=== PATIENT | female | born 1935 | race Caucasian/White ===

== ENCOUNTER 2016-11-22 22:18 | Emergency (ER) | payer MEDICARE, BC ==
--- NOTE | 2016-11-22 23:00 | EDM.PDOC ---
ED HPI GENERAL MEDICAL PROBLEM - General Chief Complaint: Fever Stated Complaint: TREMBLING Time Seen by Provider: 11/22/16 22:52 Source of Information: Reports: Patient, Family, RN notes reviewed History Limitations: Reports: No limitations - History of Present Illness INITIAL COMMENTS - FREE TEXT/NARRATIVE: 81-year-old female presents emergency department day sudden onset of fever and chills, she states been feeling well up until tonight fever was high at home around 104 she did take Tylenol prior to presenting to the emergency department she denies any other symptoms did receive a flu shot this year Abdominal Pain Score (Numeric/FACES): 3 - Related Data Allergies Allergy/AdvReac Type Severity Reaction Status Date / Time aspirin Allergy Severe Difficulty Verified 10/10/16 14:35 Breathing Yhfmckp-Htd-Orm Reductase Allergy Other Verified 10/10/16 14:35 Inhibitor Sulfa (Sulfonamide Allergy Rash Verified 10/10/16 14:35 Antibiotics) gabapentin AdvReac Agitation Verified 10/10/16 14:35 Home Meds: Home Meds Acetaminophen [Tylenol Arthritis] 1 tab PO QID 03/23/13 [History] Calcium Carb & Citrate/Vit D3 [Calcium + Vitamin D3 Caplet] 1 each PO BID [History] Carvedilol [Coreg] 12.5 mg PO BID 03/23/13 [History] Folic Acid 1 mg PO DAILY 03/23/13 [History] Theophylline [Theophylline Anhydrous] 300 mg PO BID 03/23/13 [History] Warfarin Sliding Scale [Coumadin Sliding Scale] 5 mg OR ASDIRECTED 03/23/13 [ History] Sucralfate [Carafate] 1 gm PO DAILY 01/23/16 [History] Biotin 1,000 mcg PO DAILY 05/26/16 [History] Vitamin B Complex with C [Super B Complex With C] 1 tab PO DAILY 05/26/16 [ History] Vitamin E 400 unit PO DAILY 05/26/16 [History] Nortriptyline 50 mg PO BEDTIME 09/16/16 [History] Albuterol Sulfate [Ventolin Hfa] 2 puff IH ASDIRECTED PRN 09/18/16 [History] Mesalamine [Delzicol] 400 mg PO TID 11/22/16 [History] Past Medical History HEENT History: Reports: Sinusitis Cardiovascular History: Reports: Blood clots/VTE/DVT, CAD, High cholesterol, Hypertension, Other (see below) Other Cardiovascular History: Statin Intolerance Respiratory History: Reports: Asthma, COPD Gastrointestinal History: Reports: Other (see below) Other Gastrointestinal History: Chrons. abscess on liver this winter was on IV antibiotics. 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: Musculoskeletal History: Reports: Back pain, chronic, Osteoarthritis Neurological History: Reports: Other (see below) Other Neuro History: Bilateral Leg Paresthesia Endocrine/Metabolic History: Reports: Osteopenia Hematologic History: Reports: Anemia, Blood transfusion(s), Iron deficiency Oncologic (Cancer) History: Reports: Breast - Infectious Disease History Infectious Disease History: Reports: Chicken pox - Past Surgical History GI Surgical History: Reports: Polypectomy Female Surgical History: Reports: Mastectomy Neurological Surgical History: Reports: Scoliosis, Spinal fusion Musculoskeletal Surgical History: Reports: Knee replacement Oncologic Surgical History: Reports: Mastectomy Social & Family History - Tobacco Use Smoking Status *Q: Former Smoker Years of Tobacco use: 10 Used Tobacco, but Quit: Yes Month Tobacco Last Used: 30 yrs ago Second Hand Smoke Exposure: No - Caffeine Use Caffeine Use: Reports: None - Alcohol Use Days Per Week of Alcohol Use: 0 - Recreational Drug Use Recreational Drug Use: No ED ROS GENERAL - Review of Systems Review Of Systems: See Below Constitutional: Reports: fever, chills HEENT: Reports: No symptoms Respiratory: Reports: No Symptoms Cardiovascular: Reports: No symptoms GI/Abdominal: Reports: No symptoms : Reports: no symptoms Musculoskeletal: Reports: no symptoms Skin: Reports: no symptoms Neurological: Reports: No Symptoms ED EXAM, GENERAL - Physical Exam Exam: See Below Free Text/Narrative:: General: Elderly female, not in any distress, alert and oriented x3 HEENT: head is atraumatic normocephalic, eyes pupils equal round reactive to light, sclera clear no conjunctivitis appreciated. Ears tympanic membranes clear and watson landmarks and light reflex are present bilaterally canals are clear. Nose no septal deviation, nares are clear, no blood present. Mouth mucosa is moist and pink no erythema or exudate noted in soft palate, tongue is midline uvula is midline, dentition is none. Neck: Supple no thyromegaly no tracheal deviation. Nodes: Cervical nodes subclavicular nodes nontender no palpable lymphadenopathy noted. Lungs: clear to auscultation bilaterally with symmetrical respirations, no adventitious noise appreciated. CV: Regular rate and rhythm S1 and S2 appreciated no murmurs rubs or gallops noted. Abdomen: Soft, nontender, no palpable masses or organomegaly appreciated, no distention no guarding bowel sounds are present, . Neuro: Cranial nerves II through XII grossly intact Skin: Hot and dry, intact Extremities: No lower extremity edema appreciated, Course - Vital Signs Last Recorded V/S: Last Vital Signs Temp 100.6 F 11/22/16 23:43 Pulse 110 H 11/22/16 23:43 Resp 20 11/22/16 23:43 BP 110/59 L 11/22/16 23:43 Pulse Ox 92 L 11/22/16 23:43 - Orders/Labs/Meds Orders: Active Orders 24 hr Category Date Time Status CULTURE BLOOD [BC] Urgent Lab 11/22/16 23:05 Received CULTURE BLOOD [BC] Urgent Lab 11/22/16 23:20 Received Blood Culture x2 Reflex Set [OM.PC] Urgent Oth 11/22/16 23:01 Ordered Labs: Laboratory Tests 11/22/16 11/22/16 11/22/16 Range/Units 22:56 22:56 23:05 WBC 10.5 (4.5-11.0) K/uL RBC 4.56 (3.30-5.50) M/uL Hgb 10.8 L (12.0-15.0) g/dL Hct 35.3 L (36.0-48.0) % MCV 77 L (80-98) fL MCH 24 L (27-31) pg MCHC 31 L (32-36) % Plt Count 290 (150-400) K/uL Neut % (Auto) 88 H (36-66) % Lymph % (Auto) 5 L (24-44) % Lea % (Auto) 4 (2-6) % Eos % (Auto) 3 (2-4) % Baso % (Auto) 0 (0-1) % PT (9.5-12.0) sec INR (0.80-1.20) Sodium (140-148) mmol/L Potassium (3.6-5.2) mmol/L Chloride (100-108) mmol/L Carbon Dioxide (21-32) mmol/L Anion Gap (5.0-14.0) mmol/L BUN (7-18) mg/dL Creatinine (0.6-1.0) mg/dL Est Cr Clr Drug Dosing mL/min Estimated GFR (MDRD) (>60) Glucose (74-106) mg/dL Lactic Acid 2.4 H (0.4-2.0) mmol/L Calcium (8.5-10.1) mg/dL Total Bilirubin (0.2-1.0) mg/dL AST (15-37) U/L ALT (12-78) U/L Alkaline Phosphatase (46-116) U/L Total Protein (6.4-8.2) g/dL Albumin (3.4-5.0) g/dL Globulin (2.3-3.5) g/dL Albumin/Globulin Ratio (1.2-2.2) Lipase (73-393) U/L Urine Color Yellow Urine Appearance Clear Urine pH 7.0 (4.5-8.0) Ur Specific [place] 1.010 (1.008-1.030) Urine Protein Negative (NEGATIVE) mg/dL Urine Glucose (UA) Normal (NEGATIVE) mg/dL Urine Ketones Negative (NEGATIVE) mg/dL Urine Occult Blood Negative (NEGATIVE) Urine Nitrite Negative (NEGATIVE) Urine Bilirubin Negative (NEGATIVE) Urine Urobilinogen Normal (NORMAL) mg/dL Ur Leukocyte Esterase Negative (NEGATIVE) Urine RBC 0-5 (0-5) Urine WBC 0-5 (0-5) Ur Epithelial Cells Rare Amorphous Sediment Not seen Urine Bacteria Few Urine Mucus Not seen 11/22/16 11/22/16 Range/Units 23:05 23:05 WBC (4.5-11.0) K/uL RBC (3.30-5.50) M/uL Hgb (12.0-15.0) g/dL Hct (36.0-48.0) % MCV (80-98) fL MCH (27-31) pg MCHC (32-36) % Plt Count (150-400) K/uL Neut % (Auto) (36-66) % Lymph % (Auto) (24-44) % Lea % (Auto) (2-6) % Eos % (Auto) (2-4) % Baso % (Auto) (0-1) % PT 19.2 H (9.5-12.0) sec INR 1.78 H (0.80-1.20) Sodium 139 L (140-148) mmol/L Potassium 3.4 L (3.6-5.2) mmol/L Chloride 102 (100-108) mmol/L Carbon Dioxide 24 (21-32) mmol/L Anion Gap 16.4 H (5.0-14.0) mmol/L BUN 14 (7-18) mg/dL Creatinine 0.9 (0.6-1.0) mg/dL Est Cr Clr Drug Dosing 39.43 mL/min Estimated GFR (MDRD) > 60 (>60) Glucose 108 H (74-106) mg/dL Lactic Acid (0.4-2.0) mmol/L Calcium 8.5 (8.5-10.1) mg/dL Total Bilirubin 0.2 (0.2-1.0) mg/dL AST 32 (15-37) U/L ALT 27 (12-78) U/L Alkaline Phosphatase 108 (46-116) U/L Total Protein 6.9 (6.4-8.2) g/dL Albumin 3.3 L (3.4-5.0) g/dL Globulin 3.6 H (2.3-3.5) g/dL Albumin/Globulin Ratio 0.9 L (1.2-2.2) Lipase 160 (73-393) U/L Urine Color Urine Appearance Urine pH (4.5-8.0) Ur Specific [place] (1.008-1.030) Urine Protein (NEGATIVE) mg/dL Urine Glucose (UA) (NEGATIVE) mg/dL Urine Ketones (NEGATIVE) mg/dL Urine Occult Blood (NEGATIVE) Urine Nitrite (NEGATIVE) Urine Bilirubin (NEGATIVE) Urine Urobilinogen (NORMAL) mg/dL Ur Leukocyte Esterase (NEGATIVE) Urine RBC (0-5) Urine WBC (0-5) Ur Epithelial Cells Amorphous Sediment Urine Bacteria Urine Mucus Departure - Departure Time of Disposition: 00:26 Disposition: Home, Self-Care 01 Condition: good Clinical Impression: Fever Qualifiers: Fever type: unspecified Qualified Code(s): R50.9 - Fever, unspecified Forms: ED Department Discharge Additional Instructions: Continue to use Tylenol and Motrin to help control your fevers please followup with your primary care next week if not better, call or return to the emergency department with worsening of symptoms - My Orders Last 24 Hours: My Active Orders 11/22/16 23:01 Blood Culture x2 Reflex Set [OM.PC] Urgent 11/22/16 23:05 CULTURE BLOOD [BC] Urgent 11/22/16 23:20 CULTURE BLOOD [BC] Urgent - Assessment/Plan Last 24 Hours: My Active Orders 11/22/16 23:01 Blood Culture x2 Reflex Set [OM.PC] Urgent 11/22/16 23:05 CULTURE BLOOD [BC] Urgent 11/22/16 23:20 CULTURE BLOOD [BC] Urgent Plan: Assessment Acuity = acute Site and laterality = fever complicated patient with known history of Crohn's and a history of blood clots on chronic anticoagulation Etiology = unclear etiology Manifestations = none Location of injury = home Lab values = hemoglobin low at 10.8 consistent microchromic anemia INR subtherapeutic at 1.70 sodium low at 139 consistent hyponatremia potassium low at 2.4 consistent hypokalemia lactic acid mildly elevated at 2.4 consistent lactic acidosis albumin low at 2.3 consistent with hypoalbuminemia urinalysis unremarkable Plan I did review lab work with her as well as her urine results her fever came down with the Tylenol she taken prior she feels significantly better I did review options with her including hospital admission further evaluation she declined at this time would like to try outpatient treatment symptomatic care will followup with her primary care next week or return to the emergency department for worsening symptoms Patient was in agreement with the plan all questions were answered, they were instructed to return to the emergency department or call for worsening symptoms. This note was dictated using [employer] voice recognition software please call with any questions.
[2016-11-22 23:47] VITALS: BP 110/59
== END 2016-11-23 01:06 | disposition home or self-care (01) ==
LOC: JP.ED 22:18
DX: R50.9 Fever, unspecified (principal); E78.00 Pure hypercholesterolemia, unspecified; I10 Essential (primary) hypertension; J45.909 Unspecified asthma, uncomplicated; I25.10 Atherosclerotic heart disease of native coronary artery without angina pectoris; J44.9 Chronic obstructive pulmonary disease, unspecified; Z87.891 Personal history of nicotine dependence; Z88.2 Allergy status to sulfonamides; Z88.8 Allergy status to other drugs, medicaments and biological substances; Z79.899 Other long term (current) drug therapy; Z86.718 Personal history of other venous thrombosis and embolism; Z79.01 Long term (current) use of anticoagulants
CPT/HCPCS: 36415; 80053; 81001; 83605; 83690; 85025; 85610; 87040; 87804; 99282; 99284

== ENCOUNTER 2018-07-23 06:02 | Inpatient (IN) | payer MEDICARE, BC ==
[~2018-07-23 06:02] MED LIST: Acetaminophen 500 MG Tab PO ONE; Albuterol/Ipratropium 3.0-0.5 MG/3 ML Neb Soln NEB ONE; Dextrose 5%-Lactated Ringers 1,000 ML IV SCH; methylPREDNISolone Sodium Succinate 125 MG/2 ML SDV IVPUSH ONE
[2018-07-23] MEDS ORDERED: Dextrose 5%-Lactated Ringers 1,000 ML IV SCH ×3 (06:30→07:00)
[2018-07-23] MEDS ORDERED: Acetaminophen 500 MG Tab PO ONE ×2 (06:30→07:00)
[2018-07-23] MEDS ORDERED: methylPREDNISolone Sodium Succinate 125 MG/2 ML SDV IVPUSH ONE ×2 (07:00→07:30)
[2018-07-23] MEDS ORDERED: Albuterol/Ipratropium 3.0-0.5 MG/3 ML Neb Soln NEB ONE ×2 (07:00→07:30)
[2018-07-23] MEDS ORDERED: ceFAZolin 2 GM in Premix Bag 1 BAG IV ONE (07:00)
[2018-07-23] MEDS ORDERED: Propofol 200 MG/20 ML SDV ONE (07:11)
[2018-07-23] MEDS ORDERED: Neostigmine Methylsulfate 1 MG/ML 5 ML Syringe ONE (07:11)
[2018-07-23] MEDS ORDERED: Rocuronium 50 MG/5 ML Vial ONE (07:11)
[2018-07-23] MEDS ORDERED: Ondansetron 4 MG/2 ML SDV ONE (07:11)
[2018-07-23] MEDS ORDERED: Succinylcholine 200 MG/10 ML MDV ONE (07:11)
[2018-07-23] MEDS ORDERED: Dexamethasone 4 MG/ML SDV ONE (07:11)
[2018-07-23] MEDS ORDERED: Glycopyrrolate 0.2 MG/ML 5 ML MDV ONE (07:11)
[2018-07-23] MEDS ORDERED: Meropenem 500 MG SDV ONE (07:23)
[2018-07-23] MEDS ORDERED: Naloxone 0.4 MG/ML SDV IV PRN (07:45)
[2018-07-23] MEDS ORDERED: Ropivacaine 38 ML, Dexamethasone 8 MG, EPINEPHrine 0.4 MG, Sodium Chloride 0.9% 39.6 ML NERVRT SCH ×4 (08:00)
[2018-07-23] MEDS ORDERED: fentaNYL 250 MCG/5 ML SDV ONE (08:37)
[2018-07-23] MEDS ORDERED: Labetalol 20 MG/4 ML Syringe ONE (08:46)
[2018-07-23] MEDS: HYDROmorphone/Normal Saline 15 MG/30 ML PCA IV PRN (08:54)
[2018-07-23] MEDS ORDERED: Lactated Ringers 1,000 ML ONE (09:37)
[2018-07-23] MEDS ORDERED: Albuterol/Ipratropium 3.0-0.5 MG/3 ML Neb Soln INH PRN (12:00)
[2018-07-23] MEDS ORDERED: Ondansetron 4 MG/2 ML SDV IVPUSH PRN (12:00)
[2018-07-23] MEDS: Acetaminophen 500 MG Tab PO SCH ×2 (13:57→21:39)
[2018-07-23] MEDS: Pantoprazole 40 MG Vial IVPUSH SCH (13:57)
[2018-07-23] MEDS: cefOXitin 2 GM in Sodium Chloride 0.9% 50 ML IV SCH ×2 (14:01→19:23)
[2018-07-23] MEDS: Albuterol/Ipratropium 3.0-0.5 MG/3 ML Neb Soln INH SCH ×2 (14:53→21:45)
[2018-07-23] MEDS: Dextrose 5%-Lactated Ringers 1,000 ML IV SCH ×2 (16:36→23:56)
[2018-07-23] MEDS: methylPREDNISolone Sodium Succinate 125 MG/2 ML SDV IVPUSH SCH (17:06)
[2018-07-23] MEDS: Carvedilol 12.5 MG Tab PO SCH (21:35)
[2018-07-23] MEDS: Theophylline 300 MG Tab.ER PO SCH (21:39)
[2018-07-23] MEDS: Nortriptyline 25 MG Cap PO SCH (21:39)
[2018-07-24] MEDS: cefOXitin 2 GM in Sodium Chloride 0.9% 50 ML IV SCH ×2 (02:41→07:45)
[2018-07-24] MEDS: methylPREDNISolone Sodium Succinate 125 MG/2 ML SDV IVPUSH SCH (05:34)
[2018-07-24] MEDS: Albuterol/Ipratropium 3.0-0.5 MG/3 ML Neb Soln INH SCH ×4 (07:10→20:51)
[2018-07-24] MEDS: Dextrose 5%-Lactated Ringers 1,000 ML IV SCH ×2 (07:47→17:02)
[2018-07-24] MEDS: Docusate Sodium 100 MG Cap PO SCH ×2 (09:54→20:48)
[2018-07-24] MEDS: Theophylline 300 MG Tab.ER PO SCH ×2 (09:54→20:52)
[2018-07-24] MEDS: Enoxaparin 60 MG/0.6 ML Syringe SUBCUT SCH ×2 (09:55→20:51)
[2018-07-24] MEDS: Bisacodyl 5 MG Tab PO SCH ×2 (09:55→20:51)
[2018-07-24] MEDS: Acetaminophen 500 MG Tab PO SCH ×3 (09:55→20:52)
[2018-07-24] MEDS: Carvedilol 12.5 MG Tab PO SCH ×2 (09:55→20:49)
[2018-07-24] MEDS: Hypromellose 0.4% Ophth Soln 15 ML Bottle EYEBOTH SCH (09:55)
[2018-07-24] MEDS ORDERED: Warfarin 2.5 MG, Warfarin 5 MG PO ONE ×2 (11:00)
[2018-07-24] MEDS: Linezolid 600 MG in Premix Bag 1 BAG IV SCH ×2 (11:20→22:13)
[2018-07-24] MEDS: Pantoprazole 40 MG Vial IVPUSH SCH (13:20)
[2018-07-24] MEDS: HYDROmorphone/Normal Saline 15 MG/30 ML PCA IV PRN (19:38)
[2018-07-24] MEDS: Nortriptyline 25 MG Cap PO SCH (20:52)
[2018-07-25] MEDS: Dextrose 5%-Lactated Ringers 1,000 ML IV SCH ×2 (03:27→17:45)
[2018-07-25] MEDS: Albuterol/Ipratropium 3.0-0.5 MG/3 ML Neb Soln INH SCH ×4 (08:07→20:28)
[2018-07-25] MEDS: Docusate Sodium 100 MG Cap PO SCH ×2 (08:52→20:25)
[2018-07-25] MEDS: Carvedilol 12.5 MG Tab PO SCH ×2 (08:52→20:25)
[2018-07-25] MEDS: Hypromellose 0.4% Ophth Soln 15 ML Bottle EYEBOTH SCH (08:53)
[2018-07-25] MEDS: Acetaminophen 500 MG Tab PO SCH ×3 (08:53→20:26)
[2018-07-25] MEDS: Bisacodyl 5 MG Tab PO SCH ×2 (08:53→20:25)
[2018-07-25] MEDS: Theophylline 300 MG Tab.ER PO SCH ×2 (08:53→20:26)
[2018-07-25] MEDS: Enoxaparin 60 MG/0.6 ML Syringe SUBCUT SCH ×2 (08:53→20:26)
[2018-07-25] MEDS ORDERED: Bisacodyl 10 MG Supp RECTAL ONE (10:30)
[2018-07-25] MEDS ORDERED: Potassium Phosphates 20 MMOLE in Sodium Chloride 0.9% 250 ML IV SCH (10:30)
[2018-07-25] MEDS: Linezolid 600 MG in Premix Bag 1 BAG IV SCH (12:57)
[2018-07-25] MEDS: Pantoprazole 40 MG Vial IVPUSH SCH (13:00)
[2018-07-25] MEDS ORDERED: Warfarin 2.5 MG Tab PO ONE (13:00)
[2018-07-25] MEDS ORDERED: Bisacodyl 10 MG Supp RECTAL PRN (14:00)
[2018-07-25] MEDS ORDERED: Furosemide 20 MG/2 ML VIAL IV ONE (14:00)
[2018-07-25] MEDS: Potassium Phosphates 20 MMOLE in Sodium Chloride 0.9% 250 ML IV SCH ×3 (14:38→21:24)
[2018-07-25] MEDS: Nortriptyline 25 MG Cap PO SCH (20:26)
[2018-07-26] MEDS: Linezolid 600 MG in Premix Bag 1 BAG IV SCH (00:20)
[2018-07-26] MEDS: Albuterol/Ipratropium 3.0-0.5 MG/3 ML Neb Soln INH SCH ×4 (07:20→22:03)
[2018-07-26] MEDS ORDERED: Potassium Chloride Riders 40 MEQ in Premix Bag 1 BAG IV ONE (07:40)
[2018-07-26] MEDS: Acetaminophen/HYDROcodone 325-5 MG Tab PO PRN ×5 (08:10→23:15)
[2018-07-26] MEDS: Magnesium Sulfate/Water 2 GM in Premix Bag 1 BAG IV SCH ×3 (08:12→20:04)
[2018-07-26] MEDS: Theophylline 300 MG Tab.ER PO SCH ×2 (08:13→22:03)
[2018-07-26] MEDS: Carvedilol 12.5 MG Tab PO SCH ×2 (08:13→22:14)
[2018-07-26] MEDS: Hypromellose 0.4% Ophth Soln 15 ML Bottle EYEBOTH SCH (08:13)
--- NOTE | 2018-07-26 08:40 | PN ---
DATE OF SERVICE: 07/26/2018 SUBJECTIVE: Karyn is postoperative day #3. She is using her COLLEGE PHYSICS INSTRUCTOR. Pain is controlled. Hemoglobin on 07/25/2018 was 8.6. She received 1 unit of packed red blood cells yesterday and her hemoglobin today is 9.7. Potassium is 3.5. BNP 446. Magnesium was 1.5. Oral intake 1770. Urine output not recorded at the time of dictation. FRANCISCO drain 1, 2 , and 3 put out 45, 50, and 20 respectively of a light pink serosanguineous drainage and she has had 2 bowel movements in the past 24 hours. REVIEW OF SYSTEMS: Remainder of review of systems negative for any pertinent positives and negatives. OBJECTIVE: GENERAL: Karyn Wing is a pleasant 82-year-old female. VITAL SIGNS: TPR is 98.7, 100, respirations not recorded, blood pressure is 114 /60. HEENT: Negative. NECK: Supple. HEART: Regular rate and rhythm. LUNGS: Clear. ABDOMEN: Dressings dry and intact. Abdominal binder is on. FRANCISCO drains are draining a pink serosanguineous drainage. EXTREMITIES: Without peripheral edema. ASSESSMENT: 1. Exploratory laparotomy with partial right hepatic lobectomy, cholecystectomy , and excision of peritoneal lesion over liver for recurrent inflamed right hepatic cyst, chronic cholecystitis, nodular peritoneal lesion over right lobe of liver. Date of surgery: 07/23/2018. Surgeon: Zafar Cox MD. 2. Postop hemoglobin 8.6, requiring 1 unit of packed red blood cells. 3. Anticoagulation therapy. PT 20.1, INR is 1.89. PLAN: 1. Discontinue Lovenox. 2. Magnesium 2 g IV q.6 h. x72 hours. 3. Discontinue Dulcolax oral tablets. 4. Discontinue Colace oral tablets. 5. Discontinue COLLEGE PHYSICS INSTRUCTOR and continuous pulse ox. 6. Carpenter 5/325 mg one every 3 hours p.r.n. pain. 7. Discontinue all three FRANCISCO drains. 8. Ampicillin 1.5 g q.6 h. IV. 9. Discontinue Zyvox. 10.Saline lock IV. 11.May shower. 12.Consult discharge planning for home health care. 13.Check CBC, CMP, phos, and BNP in a.m. 14.KCl 40 mEq IV. 15.Soft diet. 16.Good pulmonary toilet. 17.We will evaluate p.r.n. or in a.m. Osiris Pratehr PA-C /[id number] ADDENDUM: She is to have ampicillin 1.5 g q.6 h. IV. Gram stain was Enterococcus faecium and sensitive to ampicillin, and this was her abdominal abscess culture and sensitivity. Zyvox was discontinued. Osiris Prather PA-C /[id number] AYANA
[2018-07-26] MEDS: Potassium Chloride 20 MEQ, Lidocaine 1% 2 ML in Sodium Chloride 0.9% 100 ML IV SCH ×2 (11:08→13:00)
[2018-07-26] MEDS: Pantoprazole 40 MG Tab.CR PO SCH (12:53)
[2018-07-26] MEDS: Nortriptyline 25 MG Cap PO SCH (22:03)
[2018-07-27] MEDS: Magnesium Sulfate/Water 2 GM in Premix Bag 1 BAG IV SCH ×4 (02:02→21:18)
[2018-07-27] MEDS: Acetaminophen/HYDROcodone 325-5 MG Tab PO PRN ×3 (02:13→08:09)
[2018-07-27] MEDS: Pantoprazole 40 MG Tab.CR PO SCH (07:22)
[2018-07-27] MEDS: Albuterol/Ipratropium 3.0-0.5 MG/3 ML Neb Soln INH SCH ×4 (07:39→21:18)
[2018-07-27] MEDS ORDERED: Warfarin 5 MG Tab PO ONE (09:00)
[2018-07-27] MEDS: Carvedilol 12.5 MG Tab PO SCH ×2 (09:41→21:19)
[2018-07-27] MEDS: Hypromellose 0.4% Ophth Soln 15 ML Bottle EYEBOTH SCH (09:42)
[2018-07-27] MEDS: Theophylline 300 MG Tab.ER PO SCH ×2 (09:43→21:20)
--- NOTE | 2018-07-27 16:44 | PN ---
DATE OF SERVICE: 07/27/2018 SUBJECTIVE: Karyn's vital signs have been stable. She has been up ambulating. Pain has been somewhat controlled with the [place] one every three hours. Oral intake adequate at 1920 and urine output not recorded for the past 24 hours. REVIEW OF SYSTEMS: Remainder of review of systems negative for any pertinent positives and negatives. OBJECTIVE: GENERAL: Karyn Wnig is a pleasant 82-year-old female. VITAL SIGNS: TPR is 98, 87, 18, and blood pressure is 131/54. HEENT: Negative. NECK: Supple. HEART: Regular rate and rhythm. LUNGS: Clear. ABDOMEN: Raymond intact to right upper quadrant. Abdominal binder has not been on. EXTREMITIES: Without peripheral edema. LABORATORY DATA: PT 16.8 and INR 1.57. ASSESSMENT: 1. Exploratory laparotomy with partial right hepatic lobectomy, cholecystectomy, and excision of peritoneal lesion over liver for recurrent inflamed right hepatic cyst, chronic cholecystitis, nodular peritoneal lesion over right lobe of liver. Date of surgery, 07/23/2018. Surgeon, Zafar Cox MD. 2. Postoperative hemoglobin 8.6, requiring 1 unit of packed red blood cells. 3. Anticoagulation therapy, chronic. PLAN: 1. Coumadin 6 mg today. 2. [place] 5/325 mg take one to two every 4 hours p.r.n. pain. 3. Check PT and INR in a.m. 4. Discontinue O2. 5. Plan discharge in a.m. 6. To wear abdominal binder. The patient felt like it helped her use her incentive spirometer better and get in and out of bed. 7. We will evaluate p.r.n. or in a.m. Osiris Prather PA-C /[id number]
[2018-07-27] MEDS: Nortriptyline 25 MG Cap PO SCH (21:20)
[2018-07-28] MEDS: Magnesium Sulfate/Water 2 GM in Premix Bag 1 BAG IV SCH ×2 (02:38→08:18)
[2018-07-28] MEDS: Albuterol/Ipratropium 3.0-0.5 MG/3 ML Neb Soln INH SCH ×2 (07:20→11:05)
[2018-07-28] MEDS: Acetaminophen/HYDROcodone 325-5 MG Tab PO PRN ×2 (07:44→11:52)
[2018-07-28] MEDS: Pantoprazole 40 MG Tab.CR PO SCH (07:50)
[2018-07-28 08:10] VITALS: BP 130/82
[2018-07-28] MEDS: Theophylline 300 MG Tab.ER PO SCH (09:34)
[2018-07-28] MEDS: Hypromellose 0.4% Ophth Soln 15 ML Bottle EYEBOTH SCH (09:34)
[2018-07-28] MEDS: Carvedilol 12.5 MG Tab PO SCH (09:35)
--- NOTE | 2018-07-28 11:16 | DISCH ---
ADMISSION DIAGNOSES: 1. Recurrent inflammation of right hepatic cyst. 2. Chronic cholecystitis. 3. History of deep vein thrombosis. 4. Long-term use of anticoagulants. 5. History of left breast cancer. 6. Essential hypertension. 7. Scoliosis of lumbar spine. 8. Coronary artery disease. 9. Dyslipidemia. 10.Osteopenia. 11.Crohn's colitis. 12.Sensorineural hearing loss. 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 DISCHARGE DIAGNOSES: Exploratory laparotomy with: 1. Partial right hepatic lobectomy. 2. Cholecystectomy. 3. Excision of peritoneal lesion over liver for recurrent inflamed right hepatic cyst, chronic cholecystitis, and nodular peritoneal lesion over right lobe of liver. Date of surgery: 07/23/2018. Surgeon: Zafar Cox MD. HISTORY: Karyn Wing is an 82-year-old female with the above chief complaint. After preoperative evaluation, discussion of possible risks and possible complications, she wished to proceed with surgical procedure. HOSPITAL COURSE: Karyn had her surgery on 07/23/2018. She had no operative complications. On postoperative day #1, she was started on a full liquid diet. She was given Lovenox 60 mg subcu every 12 hours and Coumadin 7.5. Cefoxitin was discontinued and she was started on Zyvox. On postoperative day #2, she was given 1 unit of packed red blood cells for hemoglobin of 8.6. Coumadin was monitored. Santana catheter was discontinued after she was given Lasix. After the transfusion was completed, started on bowel stimulation. On postoperative day #3, the Lovenox was discontinued, magnesium was replaced. She started to have bowel movements, so her bowel stimulation was discontinued. 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 All three FRANCISCO drains were discontinued. The culture and sensitivity of the abdominal abscess was Enterococcus faecium, so she was changed to ampicillin 1.5 g q.6 h. IV. On postoperative day #4, she was given 6 mg of Coumadin. Cache was increased to take 1 to 2 every 4 hours p.r.n. pain. Oxygen was discontinued and she was up ambulating. Home health care was arranged for discharge planning. On 07/28/2017, she was ready to be discharged to home. Hemoglobin was 9.7, hematocrit 29.6. PT 16.5, INR is 1.54. Pain was managed. Activity was good. Up independently, but remains to feel weak. Vital signs stable and pain was well managed. REVIEW OF SYSTEMS: Remainder of review of systems negative for any pertinent positives or negatives. PHYSICAL EXAMINATION: GENERAL: Karyn Wing is an 82-year-old female, alert, orientated, color pale. VITAL SIGNS: Height is 5 feet 1.42 inches, weight is 172 pounds. TPR is 99.9, 86, 16, blood pressure 151/63. HEENT: Negative. NECK: Supple. HEART: Regular rate and rhythm. LUNGS: Clear. ABDOMEN: Raymond intact. Abdominal binder is on. EXTREMITIES: Without peripheral edema. DISPOSITION: Discharged to home. CONDITION: Stable and improving. FOLLOWUP: Followup appointment with Zafar Cox MD., on 08/04/2018 at 12:30 p.m. Check PT and INR before appointment. HOME MEDICATIONS: 1. Cache 5/325 mg 1 to 2 every 4 hours p.r.n. pain. 2. The patient was given 7.5 mg of Coumadin today. Before discharge tomorrow, she will resume her normal Coumadin regime of 5 mg every Thursday and Thursday, and 2.5 mg Thursday, Thursday, Thursday, , and Thursday. 3. She was given Cache 5/325 mg 1 to 2 every 4 hours p.r.n. pain, #40. 4. Tylenol 1000 mg 3 times a day as needed, but to watch that she does not take over 4000 mg of Tylenol daily. 5. Ventolin 2 puffs inhalation twice daily. 6. Biotin 1000 mcg oral daily. 7. Calcium with vitamin D3 one tablet twice daily. 8. Refresh Optive eye drops one drop in each eye daily. 9. Carvedilol/Coreg 12.5 mg twice daily. 10.Questran powder 4 g oral daily. 11.Flonase 2 sprays per each nasal twice daily p.r.n. 12.Folic acid 1 mg daily. 13.Mesalamine Delzicol 1200 mg oral 3 times a day. 14.Nortriptyline 50 mg oral at bedtime. 15.Theophylline 300 mg oral b.i.d. 16.Vitamin B complex one tablet oral daily. 17.Discontinue taking Lovenox and prednisone. DIET: Usual diet as tolerated. Drink 8 to 10 glasses of water a day. ACTIVITY: No lifting greater than 10 pounds for 6 weeks. Other activity, walk at least 6 times daily inside your home. Driving: Do not drive while on pain medication. DISCHARGE INSTRUCTIONS: Shower/bathing: May shower. Notify provider if any fever, increased pain, swelling, redness, nausea, or vomiting. Wound incision care, keep site clean and dry. Wear abdominal binder for 6 weeks and then as tolerated. SPECIAL INSTRUCTIONS: Use incentive spirometer 10 times every hour while awake. Make sure her discharge is a discharge with home health care.
[2018-07-28] MEDS ORDERED: Warfarin 2.5 MG Tab PO SCH ×2 (12:00→13:00)
--- NOTE | 2018-07-30 09:33 | PN ---
DATE OF SERVICE: 07/24/2018 The patient has been afebrile with stable vital signs. Heart rate is regular at around 100 and blood pressures are in the 120s-130s/70s. O2 saturations on 2 L nasal cannula are 93% to 94%. Overnight, no significant problems were noted. Urine output is adequate but not overly high, and we will leave the IV rate running a little fast until later this afternoon. Otherwise, her hemoglobin is 9.8 and, given the intraoperative blood loss, it is about where I would expect it to be. FRANCISCO drainage is bloody but relatively minimal; I do not think we are seeing any ongoing bleeding. With her history of DVT and such, we will start some Lovenox today, as well as starting to re-coumadinize her and recheck some labs in the morning. We will get daily PTs while re-coumadinizing her as well. We will leave the Santana catheter in place for today, monitor urine output, and we will likely get that out tomorrow. Zafar Cox MD /[id number]
--- NOTE | 2018-07-30 13:26 | PN ---
DATE OF SERVICE: 07/25/2018 The patient has been afebrile with stable vital signs, complaining of some abdominal discomfort this morning. I think she may be developing a little bit of ileus. We will hold off on advancing her diet at all and gave her Dulcolax suppository this morning. She is on her Crohn's medication consisting of mesalamine. Her hemoglobin is now 8.6, which is likely due to fluid shifting, and the drainage has all become serous, and we will give her one unit of packed RBC's this morning. Given her underlying cardiovascular disease, we will give her Lasix 10 mg IV push after the transfusion is completed. Her prothrombin time is up to 15 today. We will give her Coumadin 2.5 mg. Potassium and phosphate are both low, and these will be supplemented. She is complaining of a headache this morning. We will give her some Toradol. Otherwise, we will work on maximizing her activity and work on pulmonary toilet. Zafar Cox MD /[id number]
--- NOTE | 2018-08-02 13:06 | OR ---
DATE OF PROCEDURE: 07/23/2018 PREOPERATIVE DIAGNOSIS: Recurrent symptomatic cyst, right lobe of liver. POSTOPERATIVE DIAGNOSES: 1. Recurrent symptomatic probably infected cyst, right lobe of liver. 2. Gallbladder and stomach contused after retraction during liver retraction. 3. Superficial peritoneal lesion over quadrate lobe of liver. OPERATIVE PROCEDURES: Exploratory laparotomy with: A. Partial right hepatic lobectomy (excision of hepatic segment VII) (38926). B. Cholecystectomy (44857). C. Excision of peritoneal lesion over quadrate lobe of liver (26915). ANESTHESIA: General. ASSISTANTS: 1. Osiris Prather PA-C. 2. HANNA Jackson3. INDICATIONS FOR PROCEDURE: This is an 82-year-old female status post previous drainage of a hepatic cyst. This appeared to be somewhat of a complicated event and the patient now presents with recurrence of the cyst which is fairly symptomatic from abdominal discomfort standpoint. After discussion of treatment options, I would like to proceed with excision of this cyst that is located in the right lobe in the superolateral aspect, i.e., that of segment VII and we need to proceed with resection of that with cultures to be obtained. There was no radiologic or clinical suggestion of this being malignant as the previous cyst drainage no cytology was obtained which showed no evidence of malignancy and the cyst wall itself does not identify any serious malignancy per se. Potential risks including bleeding, infection, recurrence of the problem over time as well as possibility of cardiopulmonary, septic, or hemorrhagic complications leading to were discussed. The possibility that there may be some malignancy associated with this was also gone over and the patient wishes to proceed. DESCRIPTION OF PROCEDURE: The patient was taken to the operating room and placed in a supine position. After general endotracheal anesthesia was induced, a Santana catheter was inserted, and the abdomen prepped and draped. The lower chest was then also prepped in the event that a thoracoabdominal incision might be required. The right subcostal incision was then made and carried down through the full thickness of the abdominal wall, and the peritoneal cavity entered. There were some minor adhesions from the previous midline incision which were taken down. The patient was noted to have a small roughly 3 mm white nodular lesion over the surface of segment IV of the liver, i.e., the quadrate lobe. This was excised and sent for separate histologic evaluation, although it was not clinically at all suspicious. Otherwise, the mass in the lateral superior aspect of the right lobe of the liver was easily palpable. At this point, the left triangular ligament was divided and then liver then dissected off the bare area more or less up to the level of the inferior vena cava. This allowed anterior and medial mobilization of right lobe of liver. Mesh was then placed behind this and then using primarily melo, a resection around the mass was accomplished. Additionally, we aspirated this and only a small amount of white thick material came. Visual biopsy on that was negative for bacteria. Eventually, the mass was excised in an intact manner with a small rim of normal-appearing liver around it. The cyst capsule itself was white leathery tissue. Upon completion of the resection, the defect left more or less corresponding to the hepatic segment VII having been resected. Of the field the cyst was opened. White pasty fluid was present. Cultures of these were obtained and initial Gram stain did show some gram-positive cocci indicating at this point a chronically infected cyst, likely accounting for the patient's symptoms in that area. Hemostasis was then confirmed and fibrin sealant placed across the raw surfaces of the liver and some omentum tacked up into that area as well. The patient's gallbladder was noted to be somewhat contused due to retraction of the right lobe of liver. The cholecystectomy was therefore performed, and the cystohepatic triangle was dissected out and the cystic artery and cystic duct were identified, both divided with SIMONE melo and then the gallbladder dissected off the gallbladder bed using electrocautery and delivered from the field. The gallbladder was opened and did have some degree of cholesterolosis present. Two Demian-Ahmadi drains were then placed in the area of the posterior right subcostal incision and positioned adjacent to the liver resection. At that point, no further problems were noted. The closure of the abdomen was at the facial level with_ standard closure for subcostal incision, I used 2 fascial layers and the subcutaneous tissue was then approximated with some 3-0 Vicryl stitch and the skin with melo. Drains were fixed with some 4-0 Vicryl stitch and dressing applied. The patient was taken to the recovery room in satisfactory condition. There were no other complications. Physician child center assistant, Osiris Prather PA-C played an essential role in assisting in this case, helping to position the patient, retract structures as indicated, as well as suturing and stapling when indicated. Her presence improved patient safety and decreased operative time. Zafar Cox MD /[id number]
== END 2018-07-28 13:00 | disposition home health service (06) | DRG 406 ==
LOC: JP.SDSSCHI 06:02 → JP.SDS 06:02 → EDSTATUS 09:00 → JP.2SS 10:40 → JP.MS 07-24 14:07
PROVIDERS: ADMIT Surgery; ATTEND Surgery
PROC: 0FB10ZZ Excision of Right Lobe Liver, Open Approach (ICD-10-PCS; principal; 2018-07-23)
PROC: 0FT40ZZ Resection of Gallbladder, Open Approach (ICD-10-PCS; 2018-07-23)
PROC: 0DBW0ZZ Excision of Peritoneum, Open Approach (ICD-10-PCS; 2018-07-23)
PROC: 30233N1 Transfusion of Nonautologous Red Blood Cells into Peripheral Vein, Percutaneous Approach (ICD-10-PCS; 2018-07-25)
DX: K76.89 Other specified diseases of liver (principal); I42.8 Other cardiomyopathies; K50.90 Crohn's disease, unspecified, without complications; K81.1 Chronic cholecystitis; K66.9 Disorder of peritoneum, unspecified; D64.9 Anemia, unspecified; B95.2 Enterococcus as the cause of diseases classified elsewhere; I10 Essential (primary) hypertension; I34.0 Nonrheumatic mitral (valve) insufficiency; J44.9 Chronic obstructive pulmonary disease, unspecified; I27.20 Pulmonary hypertension, unspecified; M35.3 Polymyalgia rheumatica; M41.9 Scoliosis, unspecified; K21.9 Gastro-esophageal reflux disease without esophagitis; Z86.718 Personal history of other venous thrombosis and embolism; E78.5 Hyperlipidemia, unspecified; Z85.3 Personal history of malignant neoplasm of breast; I25.10 Atherosclerotic heart disease of native coronary artery without angina pectoris; H90.5 Unspecified sensorineural hearing loss; Z98.1 Arthrodesis status; Z87.891 Personal history of nicotine dependence; Z79.01 Long term (current) use of anticoagulants; R47.02 Dysphasia; Z90.49 Acquired absence of other specified parts of digestive tract; Z96.651 Presence of right artificial knee joint; M85.80 Other specified disorders of bone density and structure, unspecified site
CPT/HCPCS: 36415; 36430; 80053; 83735; 83880; 84100; 85025; 85027; 85610; 86850; 86900; 86901; 86920; 86922; 87070; 87075; 87077; 87186; 87205; 94640; 94762; A9270-GY; C9113; J0171; J0290; J0330; J0690; J0694; J1100; J1170; J1650; J1940; J2020; J2185; J2405; J2704; J2710; J2795; J2930; J3010; J3475; J3480; J3490; J7030; J7042; J7050; J7120; J7620-GY; P9016

== ENCOUNTER 2018-08-15 13:22 | Emergency (ER) | payer MEDICARE, BC ==
[2018-08-15 15:33] VITALS: BP 146/78
[2018-08-15] MEDS ORDERED: Atropine/Diphenoxylate 0.025-2.5 MG Tab PO ONE (16:47)
--- NOTE | 2018-08-15 17:11 | EDM.PDOC ---
<Autumn Frances - Last Filed: 08/15/18 18:55> ED HPI GENERAL MEDICAL PROBLEM - General Chief Complaint: Gastrointestinal Problem Stated Complaint: DIARRHEA Time Seen by Provider: 08/15/18 16:40 Source of Information: Reports: Patient History Limitations: Reports: No Limitations - History of Present Illness INITIAL COMMENTS - FREE TEXT/NARRATIVE: Pt c/o of diarrhea, multiple episodes and getting to the point of not being able to make it to the bathroom. Pt brought stool sample in for testing on Thursday and culture is negative for Shiga toxin and c-difficile. Culture has normal enteric lane X 2 days. Recent surgery for abscess on liver which was removed along with her gallbladder. Pt received antibiotics at that time. Previous abdominal surgeries leave the patient with 1/3 of her colon per the patient. Pt has sores in mouth from thrush that she is using swish and swallow for. Previous to the abdominal surgery the patient felt she was well and at this time feels if can get rid of diarrhea can get back to herself. Onset: Gradual Onset Date: 08/05/18 Onset Time: 10:00 Duration: Week(s):, Getting Worse Location: Reports: Abdomen Quality: Reports: Other (contstant feeling like she has to go to bathroom) Severity: Moderate Improves with: Reports: None Worsens with: Reports: None Context: Reports: Other (s/p abx and surgery) Associated Symptoms: Reports: Other (thrush) - Related Data Allergies Allergy/AdvReac Type Severity Reaction Status Date / Time aspirin Allergy Severe Difficulty Verified 08/15/18 13:49 Breathing pregabalin [From Lyrica] Allergy Other Verified 08/15/18 13:49 Qtjnmnt-Igb-Uas Reductase Allergy Other Verified 08/15/18 13:49 Inhibitor Sulfa (Sulfonamide Allergy Rash Verified 08/15/18 13:49 Antibiotics) gabapentin AdvReac Agitation Verified 08/15/18 13:49 Home Meds: Home Meds Calcium Carb & Citrate/Vit D3 [Calcium + Vitamin D3 Caplet] 1 each PO BID [History] Carvedilol [Coreg] 12.5 mg PO BID 03/23/13 [History] Folic Acid 1 mg PO DAILY 03/23/13 [History] Theophylline [Theophylline Anhydrous] 300 mg PO BID 03/23/13 [History] Warfarin Sliding Scale [Coumadin Sliding Scale] 5 mg PO SUSA 03/23/13 [History] Biotin 1,000 mcg PO DAILY 05/26/16 [History] Vitamin B Complex with C [Super B Complex With C] 1 tab PO DAILY 05/26/16 [ History] Nortriptyline 50 mg PO BEDTIME 09/16/16 [History] Albuterol Sulfate [Ventolin Hfa] 2 puff IH BID PRN 09/18/16 [History] Mesalamine [Delzicol] 1,200 mg PO TID 11/22/16 [History] Acetaminophen [Acetaminophen Extra Strength] 1,000 mg PO TID 07/22/18 [History] Carboxymethylcellulos/Glycerin [Refresh Optive] 1 drop EYEBOTH DAILY 07/22/18 [ History] Cholestyramine/Aspartame [Questran Light Powder] 4 gm PO DAILY 07/22/18 [History ] Fluticasone Propionate [Flonase] 2 spray NS BID PRN 07/22/18 [History] Warfarin [Coumadin] 2.5 mg PO MOTUWETHFR 07/23/18 [History] Acetaminophen/HYDROcodone [[place] 325-5 MG] 1 - 2 tab PO Q4H PRN #40 tablet 07/28 [Rx] Past Medical History HEENT History: Reports: Allergic Rhinitis, Cataract, Sinusitis Cardiovascular History: Reports: Arrhythmia, Blood Clots/VTE/DVT, CAD, High Cholesterol, Hypertension, Other (See Below) Other Cardiovascular History: Statin Intolerance Respiratory History: Reports: Asthma, COPD Gastrointestinal History: Reports: Chronic Diarrhea, Colon Polyp, GERD, Other ( See Below) Other Gastrointestinal History: chrons, Genitourinary History: Reports: UTI, Recurrent 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: Reports: Dysfunctional Uterine Bleeding, Musculoskeletal History: Reports: Back Pain, Chronic, Fracture, Osteoarthritis Neurological History: Reports: None, TIA Other Neuro History: Bilateral Leg Paresthesia Endocrine/Metabolic History: Reports: Obesity/BMI 30+, Osteopenia Hematologic History: Reports: Anemia, Anticoagulation Therapy, Blood Transfusion (s), Iron Deficiency Oncologic (Cancer) History: Reports: Breast - Infectious Disease History Infectious Disease History: Reports: Chicken Pox, Measles, Mumps - Past Surgical History HEENT Surgical History: Reports: Cataract Surgery Cardiovascular Surgical History: Reports: None Respiratory Surgical History: Reports: None GI Surgical History: Reports: Appendectomy, Colon, Colonoscopy Female Surgical History: Reports: Breast Biopsy, Hysterectomy, Mastectomy Endocrine Surgical History: Reports: None Neurological Surgical History: Reports: Scoliosis, Spinal Fusion Musculoskeletal Surgical History: Reports: Carpal Tunnel, Knee Replacement Oncologic Surgical History: Reports: Mastectomy Social & Family History - Tobacco Use Smoking Status *Q: Never Smoker - Caffeine Use Caffeine Use: Reports: None ED ROS GENERAL - Review of Systems Review Of Systems: See Below Constitutional: Reports: No Symptoms, Weakness HEENT: Reports: No Symptoms Respiratory: Reports: No Symptoms Cardiovascular: Reports: No Symptoms Endocrine: Reports: No Symptoms GI/Abdominal: Reports: Abdominal Pain, Diarrhea : Reports: No Symptoms Musculoskeletal: Reports: No Symptoms Skin: Reports: No Symptoms Neurological: Reports: No Symptoms Psychiatric: Reports: No Symptoms Immunologic: Reports: No Symptoms ED EXAM, GENERAL - Physical Exam Exam: See Below Free Text/Narrative:: Pt is alert and oriented pleasant lady that is frustrated with current abdominal discomfort with diarrhea. Exam Limited By: No Limitations General Appearance: Alert, WD/WN, Mild Distress, Obese Respiratory/Chest: No Respiratory Distress, Lungs Clear, Normal Breath Sounds, No Accessory Muscle Use, Chest Non-Tender Cardiovascular: Normal Peripheral Pulses, Regular Rate, Rhythm GI/Abdominal: Normal Bowel Sounds, Soft, Non-Tender Rectal (Female) Exam: Normal Exam, Normal Rectal Tone, Hemorrhoids, Other ( stool sample collected to check for occult blood) Extremities: Normal Inspection, Normal Range of Motion Neurological: Alert, Oriented, Normal Cognition Skin Exam: Warm, Dry, Wound/Incision, Other (healing abd incision) Course - Vital Signs Last Recorded V/S: Last Vital Signs Temp 37.1 C 08/15/18 13:58 Pulse 96 08/15/18 15:28 Resp 12 08/15/18 15:28 BP 146/78 H 08/15/18 15:28 Pulse Ox 88 L 08/15/18 15:28 - Orders/Labs/Meds Labs: Laboratory Tests 08/15/18 08/15/18 Range/Units 16:46 16:46 WBC 10.0 (4.5-11.0) K/uL RBC 4.08 (3.30-5.50) M/uL Hgb 11.3 L (12.0-15.0) g/dL Hct 35.0 L (36.0-48.0) % MCV 86 (80-98) fL MCH 28 (27-31) pg MCHC 32 (32-36) % Plt Count 525 H (150-400) K/uL Neut % (Auto) 65 (36-66) % Lymph % (Auto) 20 L (24-44) % Rowan % (Auto) 11 H (2-6) % Eos % (Auto) 5 H (2-4) % Baso % (Auto) 1 (0-1) % Sodium 135 L (140-148) mmol/L Potassium 3.5 L (3.6-5.2) mmol/L Chloride 98 L (100-108) mmol/L Carbon Dioxide 26 (21-32) mmol/L Anion Gap 14.5 H (5.0-14.0) mmol/L BUN 8 D (7-18) mg/dL Creatinine 0.8 (0.6-1.0) mg/dL Est Cr Clr Drug Dosing 39.93 mL/min Estimated GFR (MDRD) > 60 (>60) Glucose 91 (74-106) mg/dL Calcium 9.4 (8.5-10.1) mg/dL Total Bilirubin 0.4 (0.2-1.0) mg/dL AST 26 (15-37) U/L ALT 26 (12-78) U/L Alkaline Phosphatase 89 (46-116) U/L Total Protein 6.6 (6.4-8.2) g/dL Albumin 2.8 L (3.4-5.0) g/dL Globulin 3.8 H (2.3-3.5) g/dL Albumin/Globulin Ratio 0.7 L (1.2-2.2) Meds: Medications Discontinued Medications Generic Name Dose Route Start Last Admin Trade Name Gregg PRN Reason Stop Dose Admin Acetaminophen 500 mg 08/15/18 17:16 08/15/18 17:26 Tylenol Extra Strength PO 08/15/18 17:17 500 mg ONETIME ONE Administration Hydrocodone Bitart/Acetaminophen 1 tab 08/15/18 17:15 08/15/18 17:26 [place] 325-5 Mg PO 08/15/18 17:16 1 tab ONETIME ONE Administration Diphenoxylate HCl/Atropine 2 tab 08/15/18 16:47 08/15/18 17:11 Lomotil 0.025-2.5 Mg PO 08/15/18 16:48 2 tab ONETIME ONE Administration Pt using acetaminophen and hydrocodone for post surgical pain. After test result negative for shiga and c-difficile was located, pt given lomotil for diarrhea. - Re-Assessments/Exams Free Text/Narrative Re-Assessment/Exam: 08/15/18 18:38 After patient has received medication for diarrhea, eaten a bland diet meal with activia yougurt, patient feels much improved and is ready to go home. Pt has been informed of all results and will followup with primary care provider or return to ER if symptoms return. Departure - Departure Disposition: Home, Self-Care 01 Condition: Good Clinical Impression: Diarrhea, Abdominal pain Diarrhea Qualifiers: Diarrhea type: unspecified type Qualified Code(s): R19.7 - Diarrhea, unspecified - Discharge Information *PRESCRIPTION DRUG MONITORING PROGRAM REVIEWED*: No *COPY OF PRESCRIPTION DRUG MONITORING REPORT IN PATIENT ALYSHA: No Instructions: Abdominal Pain, Adult, Food Choices to Help Relieve Diarrhea, Adult Referrals: David Avitia MD [Primary Care Provider] - Forms: ED Department Discharge Additional Instructions: Your prescription for lomotil should be used after diarrhea stools. After this bout of diarrhea has cleared you need to check with provider before using anti- diarrheal medications. Drink plenty of liquids while using the lomotil. <Robinson Mccray - Last Filed: 08/28/18 18:13> ED HPI GENERAL MEDICAL PROBLEM - General Source of Information: Reports: Patient History Limitations: Reports: No Limitations - History of Present Illness INITIAL COMMENTS - FREE TEXT/NARRATIVE: This patient was seen in conjunction with Autumn Frances. The history above is consistent with the history I also obtained from this patient ED ROS GENERAL - Review of Systems Review Of Systems: See Below Constitutional: Reports: No Symptoms HEENT: Reports: No Symptoms Respiratory: Reports: No Symptoms Cardiovascular: Reports: No Symptoms Endocrine: Reports: No Symptoms GI/Abdominal: Reports: Abdominal Pain, Diarrhea : Reports: No Symptoms Musculoskeletal: Reports: No Symptoms Skin: Reports: No Symptoms Neurological: Reports: No Symptoms Psychiatric: Reports: No Symptoms Immunologic: Reports: No Symptoms ED EXAM, GENERAL - Physical Exam Exam: See Below Exam Limited By: No Limitations General Appearance: Alert, Mild Distress Eye Exam: Bilateral Eye: Normal Inspection Respiratory/Chest: Lungs Clear Cardiovascular: Regular Rate, Rhythm GI/Abdominal: Normal Bowel Sounds, Soft, Non-Tender Extremities: Normal Inspection Neurological: Alert, Oriented, Normal Cognition Skin Exam: Warm, Dry Course - Re-Assessments/Exams Free Text/Narrative Re-Assessment/Exam: 08/28/18 18:11 I agree with the course of treatment of this patient. I discussed this patient with Ms. Frances prior to discharge of this patient Departure - Departure Time of Disposition: 18:13 Condition: Fair
[2018-08-15] MEDS ORDERED: Acetaminophen/HYDROcodone 325-5 MG Tab PO ONE (17:15)
[2018-08-15] MEDS ORDERED: Acetaminophen 500 MG Tab PO ONE (17:16)
== END 2018-08-15 19:06 | disposition home or self-care (01) ==
LOC: JP.ED 13:22
DX: R19.7 Diarrhea, unspecified (principal); I10 Essential (primary) hypertension; E78.00 Pure hypercholesterolemia, unspecified; J44.9 Chronic obstructive pulmonary disease, unspecified; Z79.01 Long term (current) use of anticoagulants; Z79.899 Other long term (current) drug therapy; Z88.2 Allergy status to sulfonamides; Z88.6 Allergy status to analgesic agent; Z88.8 Allergy status to other drugs, medicaments and biological substances
CPT/HCPCS: 36415; 80053; 82272; 85025; 99284; A9270

== ENCOUNTER 2019-08-01 19:36 | Inpatient (IN) | payer MEDICARE, BC ==
[2019-08-01] MEDS ORDERED: Albuterol/Ipratropium 3.0-0.5 MG/3 ML Neb Soln ONE (19:46)
[2019-08-01] MEDS ORDERED: Albuterol/Ipratropium 3.0-0.5 MG/3 ML Neb Soln NEB ONE (19:47)
[2019-08-01] MEDS ORDERED: methylPREDNISolone Sodium Succinate 125 MG/2 ML SDV IVPUSH ONE (19:52)
[2019-08-01] MEDS ORDERED: Propofol 200 MG/20 ML SDV ONE (19:58)
[2019-08-01] MEDS ORDERED: Succinylcholine 200 MG/10 ML MDV ONE ×2 (19:58→20:00)
--- NOTE | 2019-08-01 19:58 | EDM.PDOC ---
ED HPI GENERAL MEDICAL PROBLEM - General Chief Complaint: Respiratory Problem Stated Complaint: MEDICAL Time Seen by Provider: 08/01/19 19:55 Source of Information: Reports: Patient History Limitations: Reports: Altered Mental Status, Respiratory Distress - History of Present Illness INITIAL COMMENTS - FREE TEXT/NARRATIVE: 84 years old female patient brought in by ambulance with a chief complaint of shortness breath. History collected from EMS and her . She has been sick for the last 2 days. No fever. Worsening shortness breath and wheezing. Coughing. No report of any chest pain. No nausea no vomiting. No abdominal pain diarrhea or constipation. No urinary symptom. No head injury or trauma. - Related Data Allergies Allergy/AdvReac Type Severity Reaction Status Date / Time aspirin Allergy Severe Difficulty Verified 08/01/19 19:55 Breathing pregabalin [From Lyrica] Allergy Other Verified 08/01/19 19:55 [id number] Reductase Allergy Other Verified 08/01/19 19:55 Inhibitor Sulfa (Sulfonamide Allergy Rash Verified 08/01/19 19:55 Antibiotics) gabapentin AdvReac Agitation Verified 08/01/19 19:55 Home Meds: Home Meds Calcium Carb & Citrate/Vit D3 [Calcium + Vitamin D3 Caplet] 1 each PO BID [History] Folic Acid 1 mg PO DAILY 03/23/13 [History] Theophylline [Theophylline Anhydrous] 300 mg PO BID 03/23/13 [History] Warfarin Sliding Scale [Coumadin Sliding Scale] 5 mg PO SUSA 03/23/13 [History] carvediloL [Coreg] 12.5 mg PO BID 03/23/13 [History] Biotin 1,000 mcg PO DAILY 05/26/16 [History] Vitamin B Complex with C [Super B Complex With C] 1 tab PO DAILY 05/26/16 [ History] Nortriptyline 50 mg PO BEDTIME 09/16/16 [History] Albuterol Sulfate [Ventolin Hfa] 2 puff IH BID PRN 09/18/16 [History] Mesalamine [Delzicol] 1,200 mg PO TID 11/22/16 [History] Acetaminophen [Acetaminophen Extra Strength] 1,000 mg PO TID 07/22/18 [History] Carboxymethylcellulos/Glycerin [Refresh Optive] 1 drop EYEBOTH DAILY 07/22/18 [ History] Cholestyramine/Aspartame [Questran Light Powder] 4 gm PO DAILY 07/22/18 [History ] Fluticasone Propionate [Flonase] 2 spray NS BID PRN 07/22/18 [History] Warfarin [Coumadin] 2.5 mg PO MOTUWETHFR 07/23/18 [History] Acetaminophen/HYDROcodone [[place] 325-5 MG] 1 - 2 tab PO Q4H PRN #40 tablet 07/28 [Rx] Past Medical History HEENT History: Reports: Allergic Rhinitis, Cataract, Sinusitis Cardiovascular History: Reports: Arrhythmia, Blood Clots/VTE/DVT, CAD, High Cholesterol, Hypertension, Other (See Below) Other Cardiovascular History: Statin Intolerance Respiratory History: Reports: Asthma, COPD Gastrointestinal History: Reports: Chronic Diarrhea, Colon Polyp, GERD, Other ( See Below) Other Gastrointestinal History: chrons, Genitourinary History: Reports: UTI, Recurrent CIVIL DESIGNER History: Reports: Dysfunctional Uterine Bleeding, Musculoskeletal History: Reports: Back Pain, Chronic, Fracture, Osteoarthritis Neurological History: Reports: None, TIA Other Neuro History: Bilateral Leg Paresthesia Endocrine/Metabolic History: Reports: Obesity/BMI 30+, Osteopenia Hematologic History: Reports: Anemia, Anticoagulation Therapy, Blood Transfusion (s), Iron Deficiency Oncologic (Cancer) History: Reports: Breast - Infectious Disease History Infectious Disease History: Reports: Chicken Pox, Measles, Mumps - Past Surgical History HEENT Surgical History: Reports: Cataract Surgery Cardiovascular Surgical History: Reports: None Respiratory Surgical History: Reports: None GI Surgical History: Reports: Appendectomy, Colon, Colonoscopy Female Surgical History: Reports: Breast Biopsy, Hysterectomy, Mastectomy Endocrine Surgical History: Reports: None Neurological Surgical History: Reports: Scoliosis, Spinal Fusion Musculoskeletal Surgical History: Reports: Carpal Tunnel, Knee Replacement Oncologic Surgical History: Reports: Mastectomy Social & Family History - Caffeine Use Caffeine Use: Reports: None ED ROS GENERAL - Review of Systems Review Of Systems: Unable To Obtain Reason Not Obtained: Respiratory distress ED EXAM, GENERAL - Physical Exam Exam: See Below Exam Limited By: Respiratory Distress General Appearance: Severe Distress Respiratory/Chest: Respiratory Distress, Decreased Breath Sounds, Crackles, Rales, Rhonchi, Wheezing Cardiovascular: Tachycardia. No: No Edema GI/Abdominal: Normal Bowel Sounds, Soft, Non-Tender, No Organomegaly, No Distention, No Abnormal Bruit, No Mass Extremities: Pedal Edema Neurological: Disoriented Course - Vital Signs Last Recorded V/S: Last Vital Signs Temp 36.5 C 08/01/19 19:56 Pulse 115 H 08/01/19 19:56 Resp 23 H 08/01/19 19:56 BP 153/96 H 08/01/19 19:56 Pulse Ox 96 08/01/19 19:56 - Orders/Labs/Meds Orders: Active Orders 24 hr Category Date Time Status EKG Documentation Completion [RC] ASDIRECTED Care 08/01/19 19:51 Active CULTURE BLOOD [BC] Urgent Lab 08/01/19 19:40 Received Levofloxacin/Dextrose 5%-Water [Levaquin in D5W 750 MG/ Med 08/01/19 20:44 Active 150 ML] 750 mg Premix Bag 1 bag IV ONETIME Vancomycin 1 gm Med 08/01/19 20:43 Active Sodium Chloride 0.9% [Normal Saline] 250 ml IV ONETIME EKG 12 Lead [EK] Urgent Ther 08/01/19 19:49 Ordered Medication Orders Levofloxacin/Dextrose 750 mg/ (Premix) 150 mls @ 100 mls/hr IV ONETIME ONE Stop: 08/01/19 22:13 Vancomycin HCl 1 gm/ Sodium (Chloride) 250 mls @ 150 mls/hr IV ONETIME ONE Stop: 08/01/19 22:22 Labs: Laboratory Tests 08/01/19 08/01/19 08/01/19 Range/Units 19:40 19:40 19:40 WBC (4.5-11.0) K/uL RBC (3.30-5.50) M/uL Hgb (12.0-15.0) g/dL Hct (36.0-48.0) % MCV (80-98) fL MCH (27-31) pg MCHC (32-36) % Plt Count (150-400) K/uL Neut % (Auto) (36-66) % Lymph % (Auto) (24-44) % Harvey % (Auto) (2-6) % Eos % (Auto) (2-4) % Baso % (Auto) (0-1) % PT 36.0 H (9.5-12.0) sec INR 3.58 H D (0.80-1.20) D-Dimer, Quantitative (0.0-400.0) ng/mL Puncture Site ABG pH (7.350-7.450) ABG pCO2 (35.0-42.0) mmHg ABG pO2 (75.0-100.0) mmHg ABG HCO3 (22.0-26.0) mmol/L ABG Total CO2 (21.0-25.0) mmol/L ABG O2 Saturation (95.0-98.0) % ABG O2 Content (15.0-23.0) %vol ABG Base Excess mm/L ABG Hemoglobin (12.0-16.0) g/dL ABG Oxyhemoglobin % ABG Carboxyhemoglobin (0.0-1.6) % ABG Methemoglobin % Sukhjinder Test O2 Delivery Device Oxygen Flow Rate L Sodium 140 (140-148) mmol/L Potassium 4.5 (3.6-5.2) mmol/L Chloride 104 (100-108) mmol/L Carbon Dioxide 26 (21-32) mmol/L Anion Gap 10.5 (5.0-14.0) mmol/L BUN 16 D (7-18) mg/dL Creatinine 1.1 H (0.6-1.0) mg/dL Est Cr Clr Drug Dosing TNP Estimated GFR (MDRD) 47 L (>60) Glucose 150 H (74-106) mg/dL Lactic Acid 1.0 (0.4-2.0) mmol/L Calcium 9.3 (8.5-10.1) mg/dL Magnesium 2.2 D (1.8-2.4) mg/dL Total Bilirubin 0.4 (0.2-1.0) mg/dL AST 34 (15-37) U/L ALT 34 (12-78) U/L Alkaline Phosphatase 107 (46-116) U/L Troponin I 0.018 (0.000-0.056) ng/mL C-Reactive Protein 0.47 H (0.0-0.3) mg/dL NT-Pro-B Natriuret Pep (5-450) pg/mL Total Protein 7.5 (6.4-8.2) g/dL Albumin 3.6 (3.4-5.0) g/dL Globulin 3.9 H (2.3-3.5) g/dL Albumin/Globulin Ratio 0.9 L (1.2-2.2) Lipase 93 (73-393) U/L Procalcitonin ng/mL Urine Color (YELLOW) Urine Appearance (CLEAR) Urine pH (5.0-8.0) Ur Specific [place] (1.008-1.030) Urine Protein (NEGATIVE) mg/dL Urine Glucose (UA) (NEGATIVE) mg/dL Urine Ketones (NEGATIVE) mg/dL Urine Occult Blood (NEGATIVE) Urine Nitrite (NEGATIVE) Urine Bilirubin (NEGATIVE) Urine Urobilinogen (0.2-1.0) EU/dL Ur Leukocyte Esterase (NEGATIVE) Urine RBC (0-5) Urine WBC (0-5) Ur Epithelial Cells Amorphous Sediment Urine Bacteria Urine Mucus 08/01/19 08/01/19 08/01/19 Range/Units 19:40 19:40 19:49 WBC 11.1 H (4.5-11.0) K/uL RBC 4.83 (3.30-5.50) M/uL Hgb 13.2 (12.0-15.0) g/dL Hct 41.4 (36.0-48.0) % MCV 86 (80-98) fL MCH 27 (27-31) pg MCHC 32 (32-36) % Plt Count 346 (150-400) K/uL Neut % (Auto) 46 (36-66) % Lymph % (Auto) 32 (24-44) % Harvey % (Auto) 8 H (2-6) % Eos % (Auto) 13 H (2-4) % Baso % (Auto) 1 (0-1) % PT (9.5-12.0) sec INR (0.80-1.20) D-Dimer, Quantitative (0.0-400.0) ng/mL Puncture Site ABG pH (7.350-7.450) ABG pCO2 (35.0-42.0) mmHg ABG pO2 (75.0-100.0) mmHg ABG HCO3 (22.0-26.0) mmol/L ABG Total CO2 (21.0-25.0) mmol/L ABG O2 Saturation (95.0-98.0) % ABG O2 Content (15.0-23.0) %vol ABG Base Excess mm/L ABG Hemoglobin (12.0-16.0) g/dL ABG Oxyhemoglobin % ABG Carboxyhemoglobin (0.0-1.6) % ABG Methemoglobin % Sukhjinder Test O2 Delivery Device Oxygen Flow Rate L Sodium (140-148) mmol/L Potassium (3.6-5.2) mmol/L Chloride (100-108) mmol/L Carbon Dioxide (21-32) mmol/L Anion Gap (5.0-14.0) mmol/L BUN (7-18) mg/dL Creatinine (0.6-1.0) mg/dL Est Cr Clr Drug Dosing Estimated GFR (MDRD) (>60) Glucose (74-106) mg/dL Lactic Acid (0.4-2.0) mmol/L Calcium (8.5-10.1) mg/dL Magnesium (1.8-2.4) mg/dL Total Bilirubin (0.2-1.0) mg/dL AST (15-37) U/L ALT (12-78) U/L Alkaline Phosphatase (46-116) U/L Troponin I (0.000-0.056) ng/mL C-Reactive Protein (0.0-0.3) mg/dL NT-Pro-B Natriuret Pep 2737 H (5-450) pg/mL Total Protein (6.4-8.2) g/dL Albumin (3.4-5.0) g/dL Globulin (2.3-3.5) g/dL Albumin/Globulin Ratio (1.2-2.2) Lipase (73-393) U/L Procalcitonin < 0.05 ng/mL Urine Color (YELLOW) Urine Appearance (CLEAR) Urine pH (5.0-8.0) Ur Specific [place] (1.008-1.030) Urine Protein (NEGATIVE) mg/dL Urine Glucose (UA) (NEGATIVE) mg/dL Urine Ketones (NEGATIVE) mg/dL Urine Occult Blood (NEGATIVE) Urine Nitrite (NEGATIVE) Urine Bilirubin (NEGATIVE) Urine Urobilinogen (0.2-1.0) EU/dL Ur Leukocyte Esterase (NEGATIVE) Urine RBC (0-5) Urine WBC (0-5) Ur Epithelial Cells Amorphous Sediment Urine Bacteria Urine Mucus 08/01/19 08/01/19 08/01/19 Range/Units 19:49 20:00 20:44 WBC (4.5-11.0) K/uL RBC (3.30-5.50) M/uL Hgb (12.0-15.0) g/dL Hct (36.0-48.0) % MCV (80-98) fL MCH (27-31) pg MCHC (32-36) % Plt Count (150-400) K/uL Neut % (Auto) (36-66) % Lymph % (Auto) (24-44) % Harvey % (Auto) (2-6) % Eos % (Auto) (2-4) % Baso % (Auto) (0-1) % PT (9.5-12.0) sec INR (0.80-1.20) D-Dimer, Quantitative 135 (0.0-400.0) ng/mL Puncture Site Rt radial ABG pH 7.285 L (7.350-7.450) ABG pCO2 47.2 H (35.0-42.0) mmHg ABG pO2 91.2 (75.0-100.0) mmHg ABG HCO3 21.7 L (22.0-26.0) mmol/L ABG Total CO2 20.0 L (21.0-25.0) mmol/L ABG O2 Saturation 95.4 (95.0-98.0) % ABG O2 Content 17.3 (15.0-23.0) %vol ABG Base Excess -4.6 mm/L ABG Hemoglobin 13.0 (12.0-16.0) g/dL ABG Oxyhemoglobin 94.0 % ABG Carboxyhemoglobin 0.9 (0.0-1.6) % ABG Methemoglobin 0.6 % Sukhjinder Test Pass O2 Delivery Device Cpap Oxygen Flow Rate 12 L Sodium (140-148) mmol/L Potassium (3.6-5.2) mmol/L Chloride (100-108) mmol/L Carbon Dioxide (21-32) mmol/L Anion Gap (5.0-14.0) mmol/L BUN (7-18) mg/dL Creatinine (0.6-1.0) mg/dL Est Cr Clr Drug Dosing Estimated GFR (MDRD) (>60) Glucose (74-106) mg/dL Lactic Acid (0.4-2.0) mmol/L Calcium (8.5-10.1) mg/dL Magnesium (1.8-2.4) mg/dL Total Bilirubin (0.2-1.0) mg/dL AST (15-37) U/L ALT (12-78) U/L Alkaline Phosphatase (46-116) U/L Troponin I (0.000-0.056) ng/mL C-Reactive Protein (0.0-0.3) mg/dL NT-Pro-B Natriuret Pep (5-450) pg/mL Total Protein (6.4-8.2) g/dL Albumin (3.4-5.0) g/dL Globulin (2.3-3.5) g/dL Albumin/Globulin Ratio (1.2-2.2) Lipase (73-393) U/L Procalcitonin ng/mL Urine Color Yellow (YELLOW) Urine Appearance Cloudy A (CLEAR) Urine pH 5.0 (5.0-8.0) Ur Specific [place] 1.025 (1.008-1.030) Urine Protein Negative (NEGATIVE) mg/dL Urine Glucose (UA) Negative (NEGATIVE) mg/dL Urine Ketones Negative (NEGATIVE) mg/dL Urine Occult Blood Negative (NEGATIVE) Urine Nitrite Negative (NEGATIVE) Urine Bilirubin Negative (NEGATIVE) Urine Urobilinogen 0.2 (0.2-1.0) EU/dL Ur Leukocyte Esterase Negative (NEGATIVE) Urine RBC 0-5 (0-5) Urine WBC 0-5 (0-5) Ur Epithelial Cells Rare Amorphous Sediment Many Urine Bacteria Not seen Urine Mucus Rare Meds: Medications Generic Name Dose Route Start Last Admin Trade Name Freq PRN Reason Stop Dose Admin Levofloxacin/Dextrose 750 mg/ 150 mls @ 100 mls/hr 08/01/19 20:44 Premix IV 08/01/19 22:13 ONETIME ONE Vancomycin HCl 1 gm/ Sodium 250 mls @ 150 mls/hr 08/01/19 20:43 Chloride IV 08/01/19 22:22 ONETIME ONE Discontinued Medications Generic Name Dose Route Start Last Admin Trade Name Freq PRN Reason Stop Dose Admin Albuterol/Ipratropium Confirm 08/01/19 19:46 Duoneb 3.0-0.5 Mg/3 Ml Administered 08/01/19 19:47 Dose 3 ml .ROUTE .STK-MED ONE Heparin Sodium (Porcine) Confirm 08/01/19 20:12 Heparin Sodium Administered 08/01/19 20:13 Dose 5,000 units .ROUTE .STK-MED ONE Heparin Sodium (Porcine) Confirm 08/01/19 20:14 Heparin Sodium Administered 08/01/19 20:15 Dose 5,000 units .ROUTE .STK-MED ONE Sodium Chloride Confirm 08/01/19 20:12 Normal Saline Administered 08/01/19 20:13 Dose 500 mls @ as directed .ROUTE .STK-MED ONE Methylprednisolone Sodium Succinate 125 mg 08/01/19 19:52 Solu-Medrol IVPUSH 08/01/19 19:53 ONETIME ONE Midazolam HCl Confirm 08/01/19 20:18 Versed 1 Mg/Ml Administered 08/01/19 20:19 Dose 4 mg .ROUTE .STK-MED ONE Midazolam HCl Confirm 08/01/19 20:43 Versed 1 Mg/Ml Administered 08/01/19 20:44 Dose 5 mg .ROUTE .STK-MED ONE Propofol Confirm 08/01/19 19:58 Diprivan 20 Ml Administered 08/01/19 19:59 Dose 200 mg .ROUTE .STK-MED ONE Succinylcholine Chloride Confirm 08/01/19 19:58 Quelicin Administered 08/01/19 19:59 Dose 200 mg .ROUTE .STK-MED ONE Succinylcholine Chloride Confirm 08/01/19 20:00 Quelicin Administered 08/01/19 20:01 Dose 200 mg .ROUTE .STK-MED ONE - Re-Assessments/Exams Free Text/Narrative Re-Assessment/Exam: 08/01/19 21:03 Patient was seen and examined immediately on arrival. Patient arrived respiratory distress. O2 sats 60% on 10 l . Tachycardic. Blood pressure 150 systolic. Acute respiratory distress. Her at the bedside wanted her intubated. His patient also said she wanted to be intubated. The patient was started initially on CPAP, given 125 mg IV Solu-Medrol and 2 DuoNeb. She was not improving and was intubated. Chest x-ray shows bilateral infiltrates and possibly volume overload as well. Blood culture has been drawn. Started on vancomycin and Levaquin. EKG shows no sign of acute ischemia or arrhythmia. Lab and imaging reviewed. This is most likely acute on chronic hypoxic, hypercapnic respiratory failure, multifactorial, combination of bilateral pneumonia, COPD etc. patient, CHF. Influenza test is pending. Case was discussed with Dr. Lott hospitalist artificial insemination technician and he accepted admission for further management to the ICU. Patient intubated, sedated. Stable for admission. Departure - Departure Time of Disposition: 20:59 Disposition: Admitted As Inpatient 67 Condition: Critical Clinical Impression: Respiratory failure, Pneumonia, COPD (chronic obstructive pulmonary disease), CHF (congestive heart failure) - Discharge Information *PRESCRIPTION DRUG MONITORING PROGRAM REVIEWED*: Not Applicable *COPY OF PRESCRIPTION DRUG MONITORING REPORT IN PATIENT ALYSHA: Not Applicable Referrals: David Avitia MD [Primary Care Provider] - Forms: ED Department Discharge Sepsis Event Note - Focused Exam Vital Signs: Vital Signs Temp Pulse Resp BP Pulse Ox Pulse Ox 08/01/19 19:56 36.5 C 115 H 23 H 153/96 H 96 08/01/19 19:55 98 Date Exam was Performed: 08/01/19 Time Exam was Performed: 20:58 - My Orders Last 24 Hours: My Active Orders 08/01/19 19:40 CULTURE BLOOD [BC] Urgent 08/01/19 19:49 EKG 12 Lead [EK] Urgent 08/01/19 19:51 EKG Documentation Completion [RC] ASDIRECTED 08/01/19 20:43 Vancomycin 1 gm Sodium Chloride 0.9% [Normal Saline] 250 ml IV ONETIME 08/01/19 20:44 Levofloxacin/Dextrose 5%-Water [Levaquin in D5W 750 MG/150 ML] 750 mg Premix Bag 1 bag IV ONETIME - Assessment/Plan Last 24 Hours: My Active Orders 08/01/19 19:40 CULTURE BLOOD [BC] Urgent 08/01/19 19:49 EKG 12 Lead [EK] Urgent 08/01/19 19:51 EKG Documentation Completion [RC] ASDIRECTED 08/01/19 20:43 Vancomycin 1 gm Sodium Chloride 0.9% [Normal Saline] 250 ml IV ONETIME 08/01/19 20:44 Levofloxacin/Dextrose 5%-Water [Levaquin in D5W 750 MG/150 ML] 750 mg Premix Bag 1 bag IV ONETIME Plan: Admit to Dr. Lott
[2019-08-01] MEDS ORDERED: Sodium Chloride 0.9% 500 ML ONE (20:12)
[2019-08-01] MEDS ORDERED: Heparin Sodium 5,000 Units/ML Vial ONE ×2 (20:12→20:14)
[2019-08-01] MEDS ORDERED: Midazolam 1 MG/ML 2 ML SDV ONE (20:18)
[2019-08-01] MEDS ORDERED: Midazolam 1 MG/ML 5 ML SDV IVPUSH ONE (20:40)
--- NOTE | 2019-08-01 20:42 | CRLCR ---
Indication: Shortness breath. ETT placement. Technique: Single AP portable view of the chest was obtained. Comparison: July 04, 2019. Findings: An ET tube is identified with the tip in the right mainstem bronchus. This should be pulled back approximately 2-3 centimeters. Bilateral infiltrates are identified. Heart is enlarged. No pleural effusion or pneumothorax is identified. Impression: The ET tube is in the right mainstem bronchus and should be pulled back 2-3 centimeters. These findings were discussed with Dr. Murray at the time of this dictation. Dictated by Keshia Nunes MD @ Aug 01 2019 8:40PM Signed by Dr. Keshia Nunes @ Aug 01 2019 8:41PM
[2019-08-01] MEDS ORDERED: Midazolam 1 MG/ML 5 ML SDV ONE (20:43)
[2019-08-01] MEDS ORDERED: Levofloxacin/Dextrose 5%-Water 750 MG in Premix Bag 1 BAG IV ONE (20:44)
[2019-08-01] MEDS ORDERED: propofoL 100 ML ONE (21:23)
--- NOTE | 2019-08-01 21:25 | PCM.HP.2 ---
H&P History of Present Illness - General Date of Service: 08/01/19 Admit Problem/Dx: Admission Diagnosis/Problem Admission Diagnosis/Problem Pneumonia Source of Information: Provider. No: Patient History Limitations: Reports: Other (intubated and sedated ) - History of Present Illness Initial Comments - Free Text/Narative: CC: SOB HPI: Karyn presents to the emergency room today with shortness of breath. She is currently intubated and sedated and unable to provide history. History is gathered with the help of emergency room personnel as well as 2 of her sons. They report that she has had difficulty with what they call upper respiratory infections over the past couple of weeks. She did have antibiotics a few weeks ago for what they think was a sinus infection. She has been doing some coughing but not producing much sputum. Over the past couple of days she has seemed more short of breath to them. Patient got very short of breath tonight after supper and then had an episode of vomiting. They do not think she is had any fevers. They are not aware of any obvious sick contacts. She is on Humira for her inflammatory bowel disease. The dose of this was recently decreased from weekly to every other week. After she became very short of breath this evening an ambulance was summoned and she was brought to the emergency room. She was urgently intubated because of persistent hypoxia despite high flow oxygen. Work-up in the emergency room revealed mild leukocytosis, mild respiratory acidosis on laboratory studies. Chest x-ray showed patchy bilateral pneumonia. She will be admitted to the intensive care unit. - Related Data Allergies/Adverse Reactions: Allergies Allergy/AdvReac Type Severity Reaction Status Date / Time aspirin Allergy Severe Difficulty Verified 08/01/19 19:55 Breathing pregabalin [From Lyrica] Allergy Other Verified 08/01/19 19:55 Cdxmljw-Kjr-Cog Reductase Allergy Other Verified 08/01/19 19:55 Inhibitor Sulfa (Sulfonamide Allergy Rash Verified 08/01/19 19:55 Antibiotics) gabapentin AdvReac Agitation Verified 08/01/19 19:55 Home Medications: Home Meds Calcium Carb & Citrate/Vit D3 [Calcium + Vitamin D3 Caplet] 1 each PO BID [History] Folic Acid 1 mg PO DAILY 03/23/13 [History] Theophylline [Theophylline Anhydrous] 300 mg PO BID 03/23/13 [History] Warfarin Sliding Scale [Coumadin Sliding Scale] 5 mg PO SUSA 03/23/13 [History] carvediloL [Coreg] 12.5 mg PO BID 03/23/13 [History] Biotin 1,000 mcg PO DAILY 05/26/16 [History] Vitamin B Complex with C [Super B Complex With C] 1 tab PO DAILY 05/26/16 [ History] Nortriptyline 50 mg PO BEDTIME 09/16/16 [History] Albuterol Sulfate [Ventolin Hfa] 2 puff IH BID PRN 09/18/16 [History] Mesalamine [Delzicol] 1,200 mg PO TID 11/22/16 [History] Acetaminophen [Acetaminophen Extra Strength] 1,000 mg PO TID 07/22/18 [History] Carboxymethylcellulos/Glycerin [Refresh Optive] 1 drop EYEBOTH DAILY 07/22/18 [ History] Cholestyramine/Aspartame [Questran Light Powder] 4 gm PO DAILY 07/22/18 [History ] Fluticasone Propionate [Flonase] 2 spray NS BID PRN 07/22/18 [History] Warfarin [Coumadin] 2.5 mg PO MOTUWETHFR 07/23/18 [History] Acetaminophen/HYDROcodone [[place] 325-5 MG] 1 - 2 tab PO Q4H PRN #40 tablet 07/28 [Rx] Past Medical History HEENT History: Reports: Allergic Rhinitis, Cataract, Sinusitis Cardiovascular History: Reports: Arrhythmia, Blood Clots/VTE/DVT, CAD, High Cholesterol, Hypertension, Other (See Below) Other Cardiovascular History: Statin Intolerance Respiratory History: Reports: Asthma, COPD Gastrointestinal History: Reports: Chronic Diarrhea, Colon Polyp, GERD, Other ( See Below) Other Gastrointestinal History: chrons, Genitourinary History: Reports: UTI, Recurrent SLUG [employer]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: Dysfunctional Uterine Bleeding, Musculoskeletal History: Reports: Back Pain, Chronic, Fracture, Osteoarthritis Neurological History: Reports: None, TIA Other Neuro History: Bilateral Leg Paresthesia Endocrine/Metabolic History: Reports: Obesity/BMI 30+, Osteopenia Hematologic History: Reports: Anemia, Anticoagulation Therapy, Blood Transfusion (s), Iron Deficiency Oncologic (Cancer) History: Reports: Breast - Infectious Disease History Infectious Disease History: Reports: Chicken Pox, Measles, Mumps - Past Surgical History HEENT Surgical History: Reports: Cataract Surgery Cardiovascular Surgical History: Reports: None Respiratory Surgical History: Reports: None GI Surgical History: Reports: Appendectomy, Colon, Colonoscopy Female Surgical History: Reports: Breast Biopsy, Hysterectomy, Mastectomy Endocrine Surgical History: Reports: None Neurological Surgical History: Reports: Scoliosis, Spinal Fusion Musculoskeletal Surgical History: Reports: Carpal Tunnel, Knee Replacement Oncologic Surgical History: Reports: Mastectomy Social & Family History - Caffeine Use Caffeine Use: Reports: None - Recreational Drug Use Recreational Drug Use: No H&P Review of Systems - Review of Systems: Review Of Systems: Unable To Obtain Reason Not Obtained: intubated and sedated Exam - Exam Exam: See Below - Vital Signs Vital Signs: Last Vital Signs Temp 36.5 C 08/01/19 19:56 Pulse 115 H 08/01/19 19:56 Resp 23 H 08/01/19 19:56 BP 153/96 H 08/01/19 19:56 Pulse Ox 96 08/01/19 19:56 - Exam Quality Assessment: Supplemental Oxygen General: Sedated. No: Alert, Mild Distress HEENT: Conjunctiva Clear, Mucosa Moist & [place]. No: Scleral Icterus Neck: Supple, Trachea Midline. No: Lymphadenopathy Lungs: Normal Respiratory Effort, Crackles (mild diffuse), Wheezing (mild diffuse exp wheezing ) Cardiovascular: Regular Rhythm, Tachycardia. No: Systolic Murmur GI/Abdominal Exam: Normal Bowel Sounds, Soft, Non-Tender, No Distention Extremities: No Pedal Edema. No: Increased Warmth Peripheral Pulses: 2+: Dorsalis Pedis (L), Dorsalis Pedis (R) Skin: Warm, Dry. No: Rash Neuro Extensive - Mental Status: No: Alert, Nl Response to Commands Neuro Extensive - Motor, Sensory, Reflexes: No: Facial Palsy (R), Facial palsy ( L), Tremor Psychiatric: No: Alert, Agitated - Patient Data Lab Results Last 24 hrs: Laboratory Results - last 24 hr 08/01/19 08/01/19 08/01/19 Range/Units 19:40 19:40 19:40 WBC (4.5-11.0) K/uL RBC (3.30-5.50) M/uL Hgb (12.0-15.0) g/dL Hct (36.0-48.0) % MCV (80-98) fL MCH (27-31) pg MCHC (32-36) % Plt Count (150-400) K/uL Neut % (Auto) (36-66) % Lymph % (Auto) (24-44) % [place] % (Auto) (2-6) % Eos % (Auto) (2-4) % Baso % (Auto) (0-1) % PT 36.0 H (9.5-12.0) sec INR 3.58 H D (0.80-1.20) D-Dimer, Quantitative (0.0-400.0) ng/mL Puncture Site ABG pH (7.350-7.450) ABG pCO2 (35.0-42.0) mmHg ABG pO2 (75.0-100.0) mmHg ABG HCO3 (22.0-26.0) mmol/L ABG Total CO2 (21.0-25.0) mmol/L ABG O2 Saturation (95.0-98.0) % ABG O2 Content (15.0-23.0) %vol ABG Base Excess mm/L ABG Hemoglobin (12.0-16.0) g/dL ABG Oxyhemoglobin % ABG Carboxyhemoglobin (0.0-1.6) % ABG Methemoglobin % Sukhjinder Test O2 Delivery Device Oxygen Flow Rate L Sodium 140 (140-148) mmol/L Potassium 4.5 (3.6-5.2) mmol/L Chloride 104 (100-108) mmol/L Carbon Dioxide 26 (21-32) mmol/L Anion Gap 10.5 (5.0-14.0) mmol/L BUN 16 D (7-18) mg/dL Creatinine 1.1 H (0.6-1.0) mg/dL Est Cr Clr Drug Dosing TNP Estimated GFR (MDRD) 47 L (>60) Glucose 150 H (74-106) mg/dL Lactic Acid 1.0 (0.4-2.0) mmol/L Calcium 9.3 (8.5-10.1) mg/dL Magnesium 2.2 D (1.8-2.4) mg/dL Total Bilirubin 0.4 (0.2-1.0) mg/dL AST 34 (15-37) U/L ALT 34 (12-78) U/L Alkaline Phosphatase 107 (46-116) U/L Troponin I 0.018 (0.000-0.056) ng/mL C-Reactive Protein 0.47 H (0.0-0.3) mg/dL NT-Pro-B Natriuret Pep (5-450) pg/mL Total Protein 7.5 (6.4-8.2) g/dL Albumin 3.6 (3.4-5.0) g/dL Globulin 3.9 H (2.3-3.5) g/dL Albumin/Globulin Ratio 0.9 L (1.2-2.2) Lipase 93 (73-393) U/L Procalcitonin ng/mL Urine Color (YELLOW) Urine Appearance (CLEAR) Urine pH (5.0-8.0) Ur Specific [place] (1.008-1.030) Urine Protein (NEGATIVE) mg/dL Urine Glucose (UA) (NEGATIVE) mg/dL Urine Ketones (NEGATIVE) mg/dL Urine Occult Blood (NEGATIVE) Urine Nitrite (NEGATIVE) Urine Bilirubin (NEGATIVE) Urine Urobilinogen (0.2-1.0) EU/dL Ur Leukocyte Esterase (NEGATIVE) Urine RBC (0-5) Urine WBC (0-5) Ur Epithelial Cells Amorphous Sediment Urine Bacteria Urine Mucus 08/01/19 08/01/19 08/01/19 Range/Units 19:40 19:40 19:49 WBC 11.1 H (4.5-11.0) K/uL RBC 4.83 (3.30-5.50) M/uL Hgb 13.2 (12.0-15.0) g/dL Hct 41.4 (36.0-48.0) % MCV 86 (80-98) fL MCH 27 (27-31) pg MCHC 32 (32-36) % Plt Count 346 (150-400) K/uL Neut % (Auto) 46 (36-66) % Lymph % (Auto) 32 (24-44) % [place] % (Auto) 8 H (2-6) % Eos % (Auto) 13 H (2-4) % Baso % (Auto) 1 (0-1) % PT (9.5-12.0) sec INR (0.80-1.20) D-Dimer, Quantitative (0.0-400.0) ng/mL Puncture Site ABG pH (7.350-7.450) ABG pCO2 (35.0-42.0) mmHg ABG pO2 (75.0-100.0) mmHg ABG HCO3 (22.0-26.0) mmol/L ABG Total CO2 (21.0-25.0) mmol/L ABG O2 Saturation (95.0-98.0) % ABG O2 Content (15.0-23.0) %vol ABG Base Excess mm/L ABG Hemoglobin (12.0-16.0) g/dL ABG Oxyhemoglobin % ABG Carboxyhemoglobin (0.0-1.6) % ABG Methemoglobin % Sukhjinder Test O2 Delivery Device Oxygen Flow Rate L Sodium (140-148) mmol/L Potassium (3.6-5.2) mmol/L Chloride (100-108) mmol/L Carbon Dioxide (21-32) mmol/L Anion Gap (5.0-14.0) mmol/L BUN (7-18) mg/dL Creatinine (0.6-1.0) mg/dL Est Cr Clr Drug Dosing Estimated GFR (MDRD) (>60) Glucose (74-106) mg/dL Lactic Acid (0.4-2.0) mmol/L Calcium (8.5-10.1) mg/dL Magnesium (1.8-2.4) mg/dL Total Bilirubin (0.2-1.0) mg/dL AST (15-37) U/L ALT (12-78) U/L Alkaline Phosphatase (46-116) U/L Troponin I (0.000-0.056) ng/mL C-Reactive Protein (0.0-0.3) mg/dL NT-Pro-B Natriuret Pep 2737 H (5-450) pg/mL Total Protein (6.4-8.2) g/dL Albumin (3.4-5.0) g/dL Globulin (2.3-3.5) g/dL Albumin/Globulin Ratio (1.2-2.2) Lipase (73-393) U/L Procalcitonin < 0.05 ng/mL Urine Color (YELLOW) Urine Appearance (CLEAR) Urine pH (5.0-8.0) Ur Specific [place] (1.008-1.030) Urine Protein (NEGATIVE) mg/dL Urine Glucose (UA) (NEGATIVE) mg/dL Urine Ketones (NEGATIVE) mg/dL Urine Occult Blood (NEGATIVE) Urine Nitrite (NEGATIVE) Urine Bilirubin (NEGATIVE) Urine Urobilinogen (0.2-1.0) EU/dL Ur Leukocyte Esterase (NEGATIVE) Urine RBC (0-5) Urine WBC (0-5) Ur Epithelial Cells Amorphous Sediment Urine Bacteria Urine Mucus 08/01/19 08/01/19 08/01/19 Range/Units 19:49 20:00 20:44 WBC (4.5-11.0) K/uL RBC (3.30-5.50) M/uL Hgb (12.0-15.0) g/dL Hct (36.0-48.0) % MCV (80-98) fL MCH (27-31) pg MCHC (32-36) % Plt Count (150-400) K/uL Neut % (Auto) (36-66) % Lymph % (Auto) (24-44) % [place] % (Auto) (2-6) % Eos % (Auto) (2-4) % Baso % (Auto) (0-1) % PT (9.5-12.0) sec INR (0.80-1.20) D-Dimer, Quantitative 135 (0.0-400.0) ng/mL Puncture Site Rt radial ABG pH 7.285 L (7.350-7.450) ABG pCO2 47.2 H (35.0-42.0) mmHg ABG pO2 91.2 (75.0-100.0) mmHg ABG HCO3 21.7 L (22.0-26.0) mmol/L ABG Total CO2 20.0 L (21.0-25.0) mmol/L ABG O2 Saturation 95.4 (95.0-98.0) % ABG O2 Content 17.3 (15.0-23.0) %vol ABG Base Excess -4.6 mm/L ABG Hemoglobin 13.0 (12.0-16.0) g/dL ABG Oxyhemoglobin 94.0 % ABG Carboxyhemoglobin 0.9 (0.0-1.6) % ABG Methemoglobin 0.6 % Sukhjinder Test Pass O2 Delivery Device Cpap Oxygen Flow Rate 12 L Sodium (140-148) mmol/L Potassium (3.6-5.2) mmol/L Chloride (100-108) mmol/L Carbon Dioxide (21-32) mmol/L Anion Gap (5.0-14.0) mmol/L BUN (7-18) mg/dL Creatinine (0.6-1.0) mg/dL Est Cr Clr Drug Dosing Estimated GFR (MDRD) (>60) Glucose (74-106) mg/dL Lactic Acid (0.4-2.0) mmol/L Calcium (8.5-10.1) mg/dL Magnesium (1.8-2.4) mg/dL Total Bilirubin (0.2-1.0) mg/dL AST (15-37) U/L ALT (12-78) U/L Alkaline Phosphatase (46-116) U/L Troponin I (0.000-0.056) ng/mL C-Reactive Protein (0.0-0.3) mg/dL NT-Pro-B Natriuret Pep (5-450) pg/mL Total Protein (6.4-8.2) g/dL Albumin (3.4-5.0) g/dL Globulin (2.3-3.5) g/dL Albumin/Globulin Ratio (1.2-2.2) Lipase (73-393) U/L Procalcitonin ng/mL Urine Color Yellow (YELLOW) Urine Appearance Cloudy A (CLEAR) Urine pH 5.0 (5.0-8.0) Ur Specific [place] 1.025 (1.008-1.030) Urine Protein Negative (NEGATIVE) mg/dL Urine Glucose (UA) Negative (NEGATIVE) mg/dL Urine Ketones Negative (NEGATIVE) mg/dL Urine Occult Blood Negative (NEGATIVE) Urine Nitrite Negative (NEGATIVE) Urine Bilirubin Negative (NEGATIVE) Urine Urobilinogen 0.2 (0.2-1.0) EU/dL Ur Leukocyte Esterase Negative (NEGATIVE) Urine RBC 0-5 (0-5) Urine WBC 0-5 (0-5) Ur Epithelial Cells Rare Amorphous Sediment Many Urine Bacteria Not seen Urine Mucus Rare Result Diagrams: 08/01/19 19:49 08/01/19 19:40 Imaging Impressions Last 24 hrs: Chest x-ray-image personally reviewed-there are mild diffuse patchy bilateral opacities concerning for bilateral pneumonia. Tiny bilateral pleural effusions. Heart size appears normal. No obvious mass. Endotracheal tube was in the right mainstem bronchus at the time of the first chest x-ray. EKG INTERPRETATION EKG Date: 08/01/19 Rhythm: Other (Sinus tachycardia) Rate (Beats/Min): 117 Hammond: LAD-Left Hammond Deviation P-Wave: Present QRS: Wide ST-T: Depressed (Laterally) QT: Normal EKG Interpretation Comments: The EKG image was personally reviewed in the emergency room Sepsis Event Note - Evaluation Sepsis Screening Result: No Definite Risk - Focused Exam Vital Signs: Vital Signs Temp Pulse Resp BP Pulse Ox Pulse Ox 08/01/19 19:56 36.5 C 115 H 23 H 153/96 H 96 08/01/19 19:55 98 Date Exam was Performed: 08/01/19 Time Exam was Performed: 22:13 *Q Meaningful Use (ADM) - VTE Risk Assess *Q Each Risk Factor Represents 1 Point: Serious lung disease including pneumonia, Abnormal Pulmonary Function (COPD) Total Score 1 Point Risk Factors: 2 Each Risk Factor Represents 2 Points: Malignancy (present or previous) Total Score 2 Point Risk Factors: 2 Each Risk Factor Represents 3 Points: Age 75 Years or Greater, History of DVT/PE Total Score 3 Point Risk Factors: 6 Each Risk Factor Represents 5 Points: None Total Score 5 Point Risk Factors: 0 Venous Thromboembolism Risk Factor Score *Q: 10 - Problem List (1) Pneumonia SNOMED Code(s): 694603027 ICD Code: J18.9 - PNEUMONIA, UNSPECIFIED ORGANISM Status: Acute Current Visit: Yes Qualifiers: Pneumonia type: due to unspecified organism Laterality: bilateral Lung location: unspecified part of lung Qualified Code(s): J18.9 - Pneumonia, unspecified organism (2) Acute exacerbation of chronic obstructive pulmonary disease SNOMED Code(s): 556372360 ICD Code: J44.1 - CHRONIC OBSTRUCTIVE PULMONARY DISEASE W (ACUTE) EXACERBATION Status: Acute Current Visit: Yes (3) Acute respiratory failure with hypoxia and hypercapnia SNOMED Code(s): 204474897 ICD Code: J96.01 - ACUTE RESPIRATORY FAILURE WITH HYPOXIA; J96.02 - ACUTE RESPIRATORY FAILURE WITH HYPERCAPNIA Status: Acute Current Visit: Yes (4) CHF (congestive heart failure) SNOMED Code(s): 50142918 ICD Code: I50.9 - HEART FAILURE, UNSPECIFIED Status: Chronic Current Visit: Yes Qualifiers: Heart failure type: systolic Heart failure chronicity: chronic Qualified Code(s): I50.22 - Chronic systolic (congestive) heart failure (5) Hx of deep venous thrombosis SNOMED Code(s): 097325903 ICD Code: Z86.718 - PERSONAL HISTORY OF OTHER VENOUS THROMBOSIS AND EMBOLISM Status: Chronic Current Visit: No Problem List Initiated/Reviewed/Updated: Yes Orders Last 24hrs: Active Orders 24 hr Category Date Time Status Patient Status Manage Transfer [TRANSFER] Routine ADT 08/01/19 21:09 Active EKG Documentation Completion [RC] ASDIRECTED Care 08/01/19 19:51 Active RT Ventilator, Adult [RC] ASDIRECTED Care 08/01/19 21:22 Active CULTURE BLOOD [BC] Urgent Lab 08/01/19 19:40 Received CULTURE RESPIRATORY + SMEAR [RM] Stat Lab 08/01/19 21:11 Received INFLUENZA A+B AG SCREEN [RM] Stat Lab 08/01/19 21:02 Ordered Levofloxacin/Dextrose 5%-Water [Levaquin in D5W 750 MG/ Med 08/01/19 20:44 Active 150 ML] 750 mg Premix Bag 1 bag IV ONETIME Vancomycin 1 gm Med 08/01/19 20:43 Active Sodium Chloride 0.9% [Normal Saline] 250 ml IV ONETIME Resuscitation Status Routine Resus Stat 08/01/19 21:11 Ordered EKG 12 Lead [EK] Urgent Ther 08/01/19 19:49 Ordered Medication Orders Levofloxacin/Dextrose 750 mg/ (Premix) 150 mls @ 100 mls/hr IV ONETIME ONE Stop: 08/01/19 22:13 Vancomycin HCl 1 gm/ Sodium (Chloride) 250 mls @ 150 mls/hr IV ONETIME ONE Stop: 08/01/19 22:22 Assessment/Plan Comment:: ASSESSMENT AND PLAN - Bilateral pneumonia-complicated by acute respiratory failure with hypoxia and hypercapnia. She has diffuse bilateral interstitial opacities. Recent difficulties with upper respiratory symptoms and she has had antibiotics in the past month. Symptoms have been getting worse before acute worsening tonight. Not currently febrile. This could represent atypical bacterial infection versus viral versus inflammatory with aspiration noted this evening. Procalcitonin level was very low. Cultures have been obtained. She is currently intubated and mechanically ventilated. -Antibiotic coverage with levofloxacin and Pip/Tazo -Scheduled and as needed nebulizers -Follow-up cultures -Mechanical ventilation until condition stabilizes -Daily chest x-rays COPD with acute exacerbation-secondary to pneumonia as discussed above. Significant wheezing noted on examination. She has received steroids in the emergency room. Mild elevation of PCO2. -Repeat ABGs this evening and in the morning -Continue Solu-Medrol every 6 hours -Scheduled and as needed nebulizers -Additional management as above Chronic systolic congestive heart failure-no evidence for exacerbation at this time. Volume status appears appropriate. -Close monitoring of intake and output History of DVT-chronically anticoagulated. INR is slightly supratherapeutic. -Hold warfarin -Repeat INR in the morning Maintenance issues - - DVT prophylaxis -mechanical. Initiate enoxaparin when INR no longer therapeutic - GI prophylaxis -IV PPI - Nutrition -n.p.o. with IV fluids - Santana catheter -placed in the emergency room for strict intake and output monitoring in a critical patient CODE STATUS -full code per family Admission justification - this patient will be admitted for inpatient services and is medically appropriate meeting medical necessity for inpatient admission as outlined in my documentation. I reasonably expect the patient will require inpatient services that span a period time over 2 midnights. I reasonably expect this patient to be discharged or transferred within 96 hours after admission to the [facility]. Disposition - I would anticipate discharge to the [facility] for subacute rehab if she survives the hospital stay Primary care physician - Dr. Adore Lott M.D. - Mortality Measure Prognosis:: Poor
[2019-08-01] MEDS ORDERED: Midazolam 1 MG/ML 2 ML SDV IVPUSH ONE (21:42)
[2019-08-01] MEDS: propofoL 100 ML IV SCH (22:00)
[2019-08-01] MEDS ORDERED: Acetaminophen 650 MG Supp RECTAL PRN (22:12)
[2019-08-01] MEDS ORDERED: Albuterol 0.083% 2.5 MG/3 ML Neb Soln NEB PRN (22:12)
[2019-08-01] MEDS ORDERED: Ondansetron 4 MG/2 ML SDV IV PRN (22:12)
[2019-08-01] MEDS ORDERED: Ondansetron 4 MG Tab.DIS PO PRN (22:12)
[2019-08-01] MEDS ORDERED: Acetaminophen 325 MG Tab PO PRN (22:12)
[2019-08-01] MEDS ORDERED: Heparin Sodium 5,000 UNITS in Sodium Chloride 0.9% 500 ML IV SCH (22:12)
[2019-08-01] MEDS: Piperacillin/Tazobactam 3.375 GM in Sodium Chloride 0.9% 50 ML IV SCH (23:00)
[2019-08-01] MEDS: Pantoprazole 40 MG Vial IV SCH (23:06)
[2019-08-01] MEDS: Albuterol/Ipratropium 3.0-0.5 MG/3 ML Neb Soln NEB SCH (23:09)
[2019-08-01] MEDS: Dextrose 5%-0.9% NaCl with KCl 1,000 ML IV SCH (23:40)
--- NOTE | 2019-08-02 00:13 | ANES ---
DATE OF SERVICE: 08/01/2019 TIME: 1999. INDICATION: I was called to the emergency room to evaluate Ms. Wing for an intubation. She is on a BiPAP and really struggling to breathe. It was discussed at length regarding the intubation and she agreed to go ahead with that plus arterial line. TECHNIQUE: I gave her 200 mg propofol with 100 mg succinylcholine. This provided adequate sedation for a 3 MAC inserted and an 8.0 endotracheal tube. It was then secured by the respiratory therapy staff and a chest x-ray was obtained. She had bilateral breath sounds and positive end-tidal CO2. Attention was then turned to her right radial artery where I did put a 20-gauge Arrow art line. It was prepped with chlorhexidine and it was secured with Tegaderm and tape. I also sutured it with 2-0 Prolene. It had very good blood return and had a good waveform. Socrates Rowley CRNA /[id number]
[2019-08-02] MEDS: methylPREDNISolone Sodium Succinate 125 MG/2 ML SDV IVPUSH SCH ×3 (02:05→16:09)
[2019-08-02] MEDS: Piperacillin/Tazobactam 3.375 GM in Sodium Chloride 0.9% 50 ML IV SCH (03:52)
--- NOTE | 2019-08-02 05:08 | CRLCR ---
INDICATION: Intubated, pneumonia. TECHNIQUE: Chest 1 views COMPARISON: Chest x-ray 08/01/2019 FINDINGS: Cardiovascular and mediastinum: Cardiomegaly with endotracheal tube at the distal trachea. Lungs and pleural spaces: Pulmonary cephalization with mild bilateral airspace opacities. Bones and soft tissues: Osteopenia IMPRESSION: 1. Interval repositioning of the endotracheal tube, now in the distal trachea. 2. Mild bilateral airspace opacities, improved compared to the study 1 day prior. Dictated by Joao Marroquin MD @ Aug 02 2019 5:06AM Signed by Dr. Joao Marroquin @ Aug 02 2019 5:08AM
[2019-08-02] MEDS: propofoL 100 ML IV SCH ×2 (05:40→21:15)
[2019-08-02] MEDS: Albuterol/Ipratropium 3.0-0.5 MG/3 ML Neb Soln NEB SCH ×4 (06:59→20:36)
[2019-08-02] MEDS: Dextrose 5%-0.9% NaCl with KCl 1,000 ML IV SCH ×2 (09:35→20:17)
--- NOTE | 2019-08-02 09:39 | PCM.PN ---
- General Info Date of Service: 08/02/19 Subjective Update: There were no acute events overnight. Patient remained stable with the ventilator. FiO2 was decreased down to 40% this morning. Sedation was lightened and the patient was alert and interactive. She was able to follow commands. We placed her on a trial of SIMV which she tolerated well. She has been successfully extubated and is currently on supplemental oxygen via nasal cannula. She has not had any fevers. Respiratory sample from last night did show a few gram-positive cocci but identification and culture is still pending. Functional Status: Reports: Pain Controlled - Review of Systems General: Denies: Fever - Patient Data Vitals - Most Recent: Last Vital Signs Temp 36.6 C 08/02/19 09:00 Pulse 107 H 08/02/19 09:00 Resp 23 H 08/02/19 09:00 BP 117/65 08/02/19 09:00 Pulse Ox 95 08/02/19 09:00 Weight - Most Recent: 65.635 kg I&O - Last 24 Hours: Intake & Output 08/01/19 08/02/19 08/02/19 22:59 06:59 14:59 Intake Total 1065 Output Total 1025 Balance 40 Lab Results Last 24 Hours: Laboratory Results - last 24 hr 08/01/19 08/01/19 08/01/19 Range/Units 19:40 19:40 19:40 WBC (4.5-11.0) K/uL RBC (3.30-5.50) M/uL Hgb (12.0-15.0) g/dL Hct (36.0-48.0) % MCV (80-98) fL MCH (27-31) pg MCHC (32-36) % Plt Count (150-400) K/uL Neut % (Auto) (36-66) % Lymph % (Auto) (24-44) % [place] % (Auto) (2-6) % Eos % (Auto) (2-4) % Baso % (Auto) (0-1) % PT 36.0 H (9.5-12.0) sec INR 3.58 H D (0.80-1.20) D-Dimer, Quantitative (0.0-400.0) ng/mL Puncture Site ABG pH (7.350-7.450) ABG pCO2 (35.0-42.0) mmHg ABG pO2 (75.0-100.0) mmHg ABG HCO3 (22.0-26.0) mmol/L ABG Total CO2 (21.0-25.0) mmol/L ABG O2 Saturation (95.0-98.0) % ABG O2 Content (15.0-23.0) %vol ABG Base Excess mm/L ABG Hemoglobin (12.0-16.0) g/dL ABG Oxyhemoglobin % ABG Carboxyhemoglobin (0.0-1.6) % ABG Methemoglobin % Sukhjinder Test O2 Delivery Device Oxygen Flow Rate L Sodium 140 (140-148) mmol/L Potassium 4.5 (3.6-5.2) mmol/L Chloride 104 (100-108) mmol/L Carbon Dioxide 26 (21-32) mmol/L Anion Gap 10.5 (5.0-14.0) mmol/L BUN 16 D (7-18) mg/dL Creatinine 1.1 H (0.6-1.0) mg/dL Est Cr Clr Drug Dosing TNP Estimated GFR (MDRD) 47 L (>60) Glucose 150 H (74-106) mg/dL Lactic Acid 1.0 (0.4-2.0) mmol/L Calcium 9.3 (8.5-10.1) mg/dL Magnesium 2.2 D (1.8-2.4) mg/dL Total Bilirubin 0.4 (0.2-1.0) mg/dL AST 34 (15-37) U/L ALT 34 (12-78) U/L Alkaline Phosphatase 107 (46-116) U/L Troponin I 0.018 (0.000-0.056) ng/mL C-Reactive Protein 0.47 H (0.0-0.3) mg/dL NT-Pro-B Natriuret Pep (5-450) pg/mL Total Protein 7.5 (6.4-8.2) g/dL Albumin 3.6 (3.4-5.0) g/dL Globulin 3.9 H (2.3-3.5) g/dL Albumin/Globulin Ratio 0.9 L (1.2-2.2) Lipase 93 (73-393) U/L Procalcitonin ng/mL Urine Color (YELLOW) Urine Appearance (CLEAR) Urine pH (5.0-8.0) Ur Specific [place] (1.008-1.030) Urine Protein (NEGATIVE) mg/dL Urine Glucose (UA) (NEGATIVE) mg/dL Urine Ketones (NEGATIVE) mg/dL Urine Occult Blood (NEGATIVE) Urine Nitrite (NEGATIVE) Urine Bilirubin (NEGATIVE) Urine Urobilinogen (0.2-1.0) EU/dL Ur Leukocyte Esterase (NEGATIVE) Urine RBC (0-5) Urine WBC (0-5) Ur Epithelial Cells Amorphous Sediment Urine Bacteria Urine Mucus 08/01/19 08/01/19 08/01/19 Range/Units 19:40 19:40 19:49 WBC 11.1 H (4.5-11.0) K/uL RBC 4.83 (3.30-5.50) M/uL Hgb 13.2 (12.0-15.0) g/dL Hct 41.4 (36.0-48.0) % MCV 86 (80-98) fL MCH 27 (27-31) pg MCHC 32 (32-36) % Plt Count 346 (150-400) K/uL Neut % (Auto) 46 (36-66) % Lymph % (Auto) 32 (24-44) % [place]linger % (Auto) 8 H (2-6) % Eos % (Auto) 13 H (2-4) % Baso % (Auto) 1 (0-1) % PT (9.5-12.0) sec INR (0.80-1.20) D-Dimer, Quantitative (0.0-400.0) ng/mL Puncture Site ABG pH (7.350-7.450) ABG pCO2 (35.0-42.0) mmHg ABG pO2 (75.0-100.0) mmHg ABG HCO3 (22.0-26.0) mmol/L ABG Total CO2 (21.0-25.0) mmol/L ABG O2 Saturation (95.0-98.0) % ABG O2 Content (15.0-23.0) %vol ABG Base Excess mm/L ABG Hemoglobin (12.0-16.0) g/dL ABG Oxyhemoglobin % ABG Carboxyhemoglobin (0.0-1.6) % ABG Methemoglobin % Sukhjinder Test O2 Delivery Device Oxygen Flow Rate L Sodium (140-148) mmol/L Potassium (3.6-5.2) mmol/L Chloride (100-108) mmol/L Carbon Dioxide (21-32) mmol/L Anion Gap (5.0-14.0) mmol/L BUN (7-18) mg/dL Creatinine (0.6-1.0) mg/dL Est Cr Clr Drug Dosing Estimated GFR (MDRD) (>60) Glucose (74-106) mg/dL Lactic Acid (0.4-2.0) mmol/L Calcium (8.5-10.1) mg/dL Magnesium (1.8-2.4) mg/dL Total Bilirubin (0.2-1.0) mg/dL AST (15-37) U/L ALT (12-78) U/L Alkaline Phosphatase (46-116) U/L Troponin I (0.000-0.056) ng/mL C-Reactive Protein (0.0-0.3) mg/dL NT-Pro-B Natriuret Pep 2737 H (5-450) pg/mL Total Protein (6.4-8.2) g/dL Albumin (3.4-5.0) g/dL Globulin (2.3-3.5) g/dL Albumin/Globulin Ratio (1.2-2.2) Lipase (73-393) U/L Procalcitonin < 0.05 ng/mL Urine Color (YELLOW) Urine Appearance (CLEAR) Urine pH (5.0-8.0) Ur Specific [place] (1.008-1.030) Urine Protein (NEGATIVE) mg/dL Urine Glucose (UA) (NEGATIVE) mg/dL Urine Ketones (NEGATIVE) mg/dL Urine Occult Blood (NEGATIVE) Urine Nitrite (NEGATIVE) Urine Bilirubin (NEGATIVE) Urine Urobilinogen (0.2-1.0) EU/dL Ur Leukocyte Esterase (NEGATIVE) Urine RBC (0-5) Urine WBC (0-5) Ur Epithelial Cells Amorphous Sediment Urine Bacteria Urine Mucus 08/01/19 08/01/19 08/01/19 Range/Units 19:49 20:00 20:44 WBC (4.5-11.0) K/uL RBC (3.30-5.50) M/uL Hgb (12.0-15.0) g/dL Hct (36.0-48.0) % MCV (80-98) fL MCH (27-31) pg MCHC (32-36) % Plt Count (150-400) K/uL Neut % (Auto) (36-66) % Lymph % (Auto) (24-44) % [place] % (Auto) (2-6) % Eos % (Auto) (2-4) % Baso % (Auto) (0-1) % PT (9.5-12.0) sec INR (0.80-1.20) D-Dimer, Quantitative 135 (0.0-400.0) ng/mL Puncture Site Rt radial ABG pH 7.285 L (7.350-7.450) ABG pCO2 47.2 H (35.0-42.0) mmHg ABG pO2 91.2 (75.0-100.0) mmHg ABG HCO3 21.7 L (22.0-26.0) mmol/L ABG Total CO2 20.0 L (21.0-25.0) mmol/L ABG O2 Saturation 95.4 (95.0-98.0) % ABG O2 Content 17.3 (15.0-23.0) %vol ABG Base Excess -4.6 mm/L ABG Hemoglobin 13.0 (12.0-16.0) g/dL ABG Oxyhemoglobin 94.0 % ABG Carboxyhemoglobin 0.9 (0.0-1.6) % ABG Methemoglobin 0.6 % Sukhjinder Test Pass O2 Delivery Device Cpap Oxygen Flow Rate 12 L Sodium (140-148) mmol/L Potassium (3.6-5.2) mmol/L Chloride (100-108) mmol/L Carbon Dioxide (21-32) mmol/L Anion Gap (5.0-14.0) mmol/L BUN (7-18) mg/dL Creatinine (0.6-1.0) mg/dL Est Cr Clr Drug Dosing Estimated GFR (MDRD) (>60) Glucose (74-106) mg/dL Lactic Acid (0.4-2.0) mmol/L Calcium (8.5-10.1) mg/dL Magnesium (1.8-2.4) mg/dL Total Bilirubin (0.2-1.0) mg/dL AST (15-37) U/L ALT (12-78) U/L Alkaline Phosphatase (46-116) U/L Troponin I (0.000-0.056) ng/mL C-Reactive Protein (0.0-0.3) mg/dL NT-Pro-B Natriuret Pep (5-450) pg/mL Total Protein (6.4-8.2) g/dL Albumin (3.4-5.0) g/dL Globulin (2.3-3.5) g/dL Albumin/Globulin Ratio (1.2-2.2) Lipase (73-393) U/L Procalcitonin ng/mL Urine Color Yellow (YELLOW) Urine Appearance Cloudy A (CLEAR) Urine pH 5.0 (5.0-8.0) Ur Specific [place] 1.025 (1.008-1.030) Urine Protein Negative (NEGATIVE) mg/dL Urine Glucose (UA) Negative (NEGATIVE) mg/dL Urine Ketones Negative (NEGATIVE) mg/dL Urine Occult Blood Negative (NEGATIVE) Urine Nitrite Negative (NEGATIVE) Urine Bilirubin Negative (NEGATIVE) Urine Urobilinogen 0.2 (0.2-1.0) EU/dL Ur Leukocyte Esterase Negative (NEGATIVE) Urine RBC 0-5 (0-5) Urine WBC 0-5 (0-5) Ur Epithelial Cells Rare Amorphous Sediment Many Urine Bacteria Not seen Urine Mucus Rare 08/01/19 08/02/19 08/02/19 Range/Units 22:35 04:45 04:45 WBC 5.4 (4.5-11.0) K/uL RBC 4.29 (3.30-5.50) M/uL Hgb 11.6 L (12.0-15.0) g/dL Hct 36.2 (36.0-48.0) % MCV 84 (80-98) fL MCH 27 (27-31) pg MCHC 32 (32-36) % Plt Count 269 (150-400) K/uL Neut % (Auto) (36-66) % Lymph % (Auto) (24-44) % [place] % (Auto) (2-6) % Eos % (Auto) (2-4) % Baso % (Auto) (0-1) % PT 42.2 H (9.5-12.0) sec INR 4.24 H* (0.80-1.20) D-Dimer, Quantitative (0.0-400.0) ng/mL Puncture Site Line ABG pH 7.348 L (7.350-7.450) ABG pCO2 41.1 (35.0-42.0) mmHg ABG pO2 96.7 (75.0-100.0) mmHg ABG HCO3 22.0 (22.0-26.0) mmol/L ABG Total CO2 20.2 L (21.0-25.0) mmol/L ABG O2 Saturation 97.0 (95.0-98.0) % ABG O2 Content 15.7 (15.0-23.0) %vol ABG Base Excess -2.9 mm/L ABG Hemoglobin 11.6 L (12.0-16.0) g/dL ABG Oxyhemoglobin 95.1 % ABG Carboxyhemoglobin 1.3 (0.0-1.6) % ABG Methemoglobin 0.7 % Sukhjinder Test O2 Delivery Device Ventilator Oxygen Flow Rate L Sodium (140-148) mmol/L Potassium (3.6-5.2) mmol/L Chloride (100-108) mmol/L Carbon Dioxide (21-32) mmol/L Anion Gap (5.0-14.0) mmol/L BUN (7-18) mg/dL Creatinine (0.6-1.0) mg/dL Est Cr Clr Drug Dosing Estimated GFR (MDRD) (>60) Glucose (74-106) mg/dL Lactic Acid (0.4-2.0) mmol/L Calcium (8.5-10.1) mg/dL Magnesium (1.8-2.4) mg/dL Total Bilirubin (0.2-1.0) mg/dL AST (15-37) U/L ALT (12-78) U/L Alkaline Phosphatase (46-116) U/L Troponin I (0.000-0.056) ng/mL C-Reactive Protein (0.0-0.3) mg/dL NT-Pro-B Natriuret Pep (5-450) pg/mL Total Protein (6.4-8.2) g/dL Albumin (3.4-5.0) g/dL Globulin (2.3-3.5) g/dL Albumin/Globulin Ratio (1.2-2.2) Lipase (73-393) U/L Procalcitonin ng/mL Urine Color (YELLOW) Urine Appearance (CLEAR) Urine pH (5.0-8.0) Ur Specific [place] (1.008-1.030) Urine Protein (NEGATIVE) mg/dL Urine Glucose (UA) (NEGATIVE) mg/dL Urine Ketones (NEGATIVE) mg/dL Urine Occult Blood (NEGATIVE) Urine Nitrite (NEGATIVE) Urine Bilirubin (NEGATIVE) Urine Urobilinogen (0.2-1.0) EU/dL Ur Leukocyte Esterase (NEGATIVE) Urine RBC (0-5) Urine WBC (0-5) Ur Epithelial Cells Amorphous Sediment Urine Bacteria Urine Mucus 08/02/19 08/02/19 Range/Units 04:45 04:45 WBC (4.5-11.0) K/uL RBC (3.30-5.50) M/uL Hgb (12.0-15.0) g/dL Hct (36.0-48.0) % MCV (80-98) fL MCH (27-31) pg MCHC (32-36) % Plt Count (150-400) K/uL Neut % (Auto) (36-66) % Lymph % (Auto) (24-44) % [place] % (Auto) (2-6) % Eos % (Auto) (2-4) % Baso % (Auto) (0-1) % PT (9.5-12.0) sec INR (0.80-1.20) D-Dimer, Quantitative (0.0-400.0) ng/mL Puncture Site Line ABG pH 7.418 (7.350-7.450) ABG pCO2 33.9 L (35.0-42.0) mmHg ABG pO2 104.0 H (75.0-100.0) mmHg ABG HCO3 21.5 L (22.0-26.0) mmol/L ABG Total CO2 19.4 L (21.0-25.0) mmol/L ABG O2 Saturation 98.0 (95.0-98.0) % ABG O2 Content 15.9 (15.0-23.0) %vol ABG Base Excess -2.0 mm/L ABG Hemoglobin 11.7 L (12.0-16.0) g/dL ABG Oxyhemoglobin 95.5 % ABG Carboxyhemoglobin 1.7 H (0.0-1.6) % ABG Methemoglobin 0.9 % Sukhjinder Test O2 Delivery Device Ventilator Oxygen Flow Rate L Sodium 141 (140-148) mmol/L Potassium 3.8 (3.6-5.2) mmol/L Chloride 107 (100-108) mmol/L Carbon Dioxide 22 (21-32) mmol/L Anion Gap 12.1 (5.0-14.0) mmol/L BUN 11 (7-18) mg/dL Creatinine 0.8 (0.6-1.0) mg/dL Est Cr Clr Drug Dosing 46.01 Estimated GFR (MDRD) > 60 (>60) Glucose 155 H (74-106) mg/dL Lactic Acid (0.4-2.0) mmol/L Calcium 8.8 (8.5-10.1) mg/dL Magnesium 2.1 (1.8-2.4) mg/dL Total Bilirubin (0.2-1.0) mg/dL AST (15-37) U/L ALT (12-78) U/L Alkaline Phosphatase (46-116) U/L Troponin I (0.000-0.056) ng/mL C-Reactive Protein (0.0-0.3) mg/dL NT-Pro-B Natriuret Pep (5-450) pg/mL Total Protein (6.4-8.2) g/dL Albumin (3.4-5.0) g/dL Globulin (2.3-3.5) g/dL Albumin/Globulin Ratio (1.2-2.2) Lipase (73-393) U/L Procalcitonin ng/mL Urine Color (YELLOW) Urine Appearance (CLEAR) Urine pH (5.0-8.0) Ur Specific [place] (1.008-1.030) Urine Protein (NEGATIVE) mg/dL Urine Glucose (UA) (NEGATIVE) mg/dL Urine Ketones (NEGATIVE) mg/dL Urine Occult Blood (NEGATIVE) Urine Nitrite (NEGATIVE) Urine Bilirubin (NEGATIVE) Urine Urobilinogen (0.2-1.0) EU/dL Ur Leukocyte Esterase (NEGATIVE) Urine RBC (0-5) Urine WBC (0-5) Ur Epithelial Cells Amorphous Sediment Urine Bacteria Urine Mucus Matias Results Last 24 Hours: Microbiology 08/01/19 21:56 Influenza Type A Antigen Screen - Final Nasal, Unspecified NEGATIVE INFLUENZA A VIRUS AG REFERENCE RANGE: NEGATIVE Influenza Type B Antigen Screen - Final NEGATIVE INFLUENZA B VIRUS AG REFERENCE RANGE: NEGATIVE 08/01/19 21:11 Gram Stain - Final Endotrachael Aspirate Med Orders - Current: Current Medications Acetaminophen (Tylenol) 650 mg PO Q4H PRN PRN Reason: Pain (Mild 1-3)/fever Acetaminophen (Tylenol) 650 mg RECTAL Q4H PRN PRN Reason: Mild pain/fever Albuterol (Proventil Neb Soln) 2.5 mg NEB Q4H PRN PRN Reason: Shortness Of Breath/wheezing Albuterol/Ipratropium (Duoneb 3.0-0.5 Mg/3 Ml) 3 ml NEB QIDRT [facility] Last Admin: 08/02/19 06:59 Dose: 3 ml Potassium Chloride/Dextrose/Sod Cl (D5 Ns With 20 Meq Kcl) 1,000 mls @ 100 mls/ hr IV ASDIRECTED [facility] Last Admin: 08/02/19 09:35 Dose: 100 mls/hr Heparin Sodium (Porcine) 5,000 (units/ Sodium Chloride) 501 mls @ 1 mls/hr IV ASDIRECTED [facility] Last Admin: 08/02/19 07:45 Dose: 1 mls/hr Levofloxacin/Dextrose 750 mg/ (Premix) 150 mls @ 100 mls/hr IV Q48H [facility] Piperacillin Sod/Tazobactam (Sod 3.375 gm/ Sodium Chloride) 50 mls @ 100 mls/ hr IV Q6H [facility] Last Admin: 08/02/19 03:52 Dose: 100 mls/hr Lorazepam (Ativan) 0.5 mg IVPUSH Q4H PRN PRN Reason: Nausea/Vomiting Morphine Sulfate (Morphine) 2 mg IVPUSH Q2H PRN PRN Reason: Pain (severe 7-10) Ondansetron HCl (Zofran Odt) 4 mg PO Q6H PRN PRN Reason: Nausea able to take PO Ondansetron HCl (Zofran) 4 mg IV Q6H PRN PRN Reason: Nausea/Vomiting Pantoprazole Sodium (Protonix Iv) 40 mg IV Q24H [facility] Last Admin: 08/01/19 23:06 Dose: 40 mg Discontinued Medications Albuterol/Ipratropium (Duoneb 3.0-0.5 Mg/3 Ml) Confirm Administered Dose 3 ml .ROUTE .STK-MED ONE Stop: 08/01/19 19:47 Last Admin: 08/01/19 21:39 Dose: Not Given Albuterol/Ipratropium (Duoneb 3.0-0.5 Mg/3 Ml) 3 ml NEB ONETIME ONE Stop: 08/01/19 19:48 Last Admin: 08/01/19 21:50 Dose: 3 ml Heparin Sodium (Porcine) (Heparin Sodium) Confirm Administered Dose 5,000 units .ROUTE .STK-MED ONE Stop: 08/01/19 20:13 Last Admin: 08/01/19 21:39 Dose: Not Given Heparin Sodium (Porcine) (Heparin Sodium) Confirm Administered Dose 5,000 units .ROUTE .STK-MED ONE Stop: 08/01/19 20:15 Last Admin: 08/01/19 21:39 Dose: Not Given Sodium Chloride (Normal Saline) Confirm Administered Dose 500 mls @ as directed .ROUTE .STK-MED ONE Stop: 08/01/19 20:13 Last Admin: 08/01/19 21:40 Dose: Not Given Levofloxacin/Dextrose 750 mg/ (Premix) 150 mls @ 100 mls/hr IV ONETIME ONE Stop: 08/01/19 22:13 Last Admin: 08/01/19 21:00 Dose: 100 mls/hr Vancomycin HCl 1 gm/ Sodium (Chloride) 250 mls @ 150 mls/hr IV ONETIME ONE Stop: 08/01/19 22:22 Last Admin: 08/01/19 23:26 Dose: Not Given Propofol (Diprivan 100 Ml) Confirm Administered Dose 100 mls @ as directed .ROUTE .STK-MED ONE Stop: 08/01/19 21:24 Last Admin: 08/01/19 23:04 Dose: Not Given Propofol (Diprivan 100 Ml) 100 mls @ 2.041 mls/hr IV TITRATE [facility]ES[facility] ALBERTO; Protocol Last Titration: 08/02/19 09:38 Dose: 0 mcg/kg/min, 0 mls/hr Methylprednisolone Sodium Succinate (Solu-Medrol) 125 mg IVPUSH ONETIME ONE Stop: 08/01/19 19:53 Last Admin: 08/01/19 19:42 Dose: 125 mg Methylprednisolone Sodium Succinate (Solu-Medrol) 62.5 mg IVPUSH Q6H [facility] Last Admin: 08/02/19 08:27 Dose: 62.5 mg Midazolam HCl (Versed 1 Mg/Ml) Confirm Administered Dose 4 mg .ROUTE .STK-MED ONE Stop: 08/01/19 20:19 Last Admin: 08/01/19 21:42 Dose: Not Given Midazolam HCl (Versed 1 Mg/Ml) Confirm Administered Dose 5 mg .ROUTE .STK-MED ONE Stop: 08/01/19 20:44 Last Admin: 08/01/19 21:43 Dose: Not Given Midazolam HCl (Versed 1 Mg/Ml) 4 mg IVPUSH ONETIME ONE Stop: 08/01/19 21:43 Last Admin: 08/01/19 20:25 Dose: 4 mg Midazolam HCl (Versed 1 Mg/Ml) 3 mg IVPUSH ONETIME ONE Stop: 08/01/19 20:41 Last Admin: 08/01/19 20:40 Dose: 3 mg Propofol (Diprivan 20 Ml) Confirm Administered Dose 200 mg .ROUTE .STK-MED ONE Stop: 08/01/19 19:59 Succinylcholine Chloride (Quelicin) Confirm Administered Dose 200 mg .ROUTE .STK -MED ONE Stop: 08/01/19 19:59 Succinylcholine Chloride (Quelicin) Confirm Administered Dose 200 mg .ROUTE .STK -MED ONE Stop: 08/01/19 20:01 - Exam Quality Assessment: Supplemental Oxygen General: Alert, Oriented, Cooperative, No Acute Distress Lungs: Normal Respiratory Effort, Rhonchi (moderate diffuse). No: Wheezing Cardiovascular: Regular Rhythm, Tachycardia GI/Abdominal Exam: Normal Bowel Sounds, Soft, No Distention, Tender (mild generalized ) Extremities: No Pedal Edema. No: Increased Warmth Skin: Warm, Dry Psy/Mental Status: Alert, Normal Affect Sepsis Event Note - Evaluation Sepsis Screening Result: No Definite Risk - Focused Exam Vital Signs: Vital Signs Temp Pulse Resp BP BP Pulse Ox 08/02/19 09:00 36.6 C 107 H 23 H 117/65 95 08/02/19 08:00 36.9 C 96 19 124/56 L 96 08/02/19 07:00 93 17 113/53 L 95 08/02/19 06:59 91 08/02/19 06:00 92 18 126/65 96 08/02/19 05:00 92 18 115/62 96 08/02/19 04:00 36.8 C 91 20 130/76 96 08/02/19 03:00 91 19 136/61 92 L 08/02/19 02:00 36.3 C 94 19 131/71 94 L 08/02/19 01:00 86 17 120/64 93 L 08/02/19 00:00 91 17 121/61 94 L 08/01/19 23:00 36.4 C 94 17 114/59 L 114/59 L 93 L 08/01/19 22:12 94 L 08/01/19 22:00 16 107/54 L 127/50 L 96 Date Exam was Performed: 08/02/19 Time Exam was Performed: 13:13 - Problem List & Annotations (1) Pneumonia SNOMED Code(s): 738848637 Code(s): J18.9 - PNEUMONIA, UNSPECIFIED ORGANISM Status: Acute Current Visit: Yes Qualifiers: Pneumonia type: due to unspecified organism Laterality: bilateral Lung location: unspecified part of lung Qualified Code(s): J18.9 - Pneumonia, unspecified organism (2) Acute exacerbation of chronic obstructive pulmonary disease SNOMED Code(s): 672512064 Code(s): J44.1 - CHRONIC OBSTRUCTIVE PULMONARY DISEASE W (ACUTE) EXACERBATION Status: Acute Current Visit: Yes (3) Acute respiratory failure with hypoxia and hypercapnia SNOMED Code(s): 622322486 Code(s): J96.01 - ACUTE RESPIRATORY FAILURE WITH HYPOXIA; J96.02 - ACUTE RESPIRATORY FAILURE WITH HYPERCAPNIA Status: Acute Current Visit: Yes (4) CHF (congestive heart failure) SNOMED Code(s): 23682341 Code(s): I50.9 - HEART FAILURE, UNSPECIFIED Status: Chronic Current Visit : Yes Qualifiers: Heart failure type: systolic Heart failure chronicity: chronic Qualified Code(s): I50.22 - Chronic systolic (congestive) heart failure (5) Hx of deep venous thrombosis SNOMED Code(s): 590717943 Code(s): Z86.718 - PERSONAL HISTORY OF OTHER VENOUS THROMBOSIS AND EMBOLISM Status: Chronic Current Visit: No - Problem List Review Problem List Initiated/Reviewed/Updated: Yes - My Orders Last 24 Hours: My Active Orders 08/01/19 21:11 CULTURE RESPIRATORY + SMEAR [RM] Stat Resuscitation Status Routine 08/01/19 22:00 Pantoprazole [ProTONIX IV] 40 mg IV Q24H Piperacillin/Tazobactam [Zosyn] 3.375 gm Sodium Chloride 0.9% [Normal Saline] 50 ml IV Q6H 08/01/19 22:12 Patient Status [ADT] Routine Antiembolic Devices [RC] .Routine Bedrest Bathroom Privileges [RC] ASDIRECTED Cardiac Monitoring [RC] Q6H Intake and Output [RC] QSHIFT Notify Provider Vital Signs [RC] ASDIRECTED Oxygen Therapy [RC] PRN Pulse Oximetry [RC] CONTINUOUS RT Aerosol Therapy [RC] ASDIRECTED VTE/DVT Education [RC] Per Unit Routine Vital Signs [RC] Q2H Acetaminophen [Tylenol] 650 mg PO Q4H PRN Acetaminophen [Tylenol] 650 mg RECTAL Q4H PRN Albuterol [Proventil Neb Soln] 2.5 mg NEB Q4H PRN Albuterol/Ipratropium [DuoNeb 3.0-0.5 MG/3 ML] 3 ml NEB QIDRT Dextrose 5%-0.9% NaCl with KCl [D5 NS with 20 mEq KCl] 1,000 ml IV ASDIRECTED Heparin Sodium 5,000 units Sodium Chloride 0.9% [Normal Saline] 500 ml IV ASDIRECTED LORazepam [Ativan] 0.5 mg IVPUSH Q4H PRN Morphine 2 mg IVPUSH Q2H PRN Ondansetron [Zofran ODT] 4 mg PO Q6H PRN Ondansetron [Zofran] 4 mg IV Q6H PRN Sequential Compression Device [OM.PC] Routine 08/02/19 16:00 methylPREDNISolone Sod Succ [Solu-MEDROL] 62.5 mg IVPUSH Q8H 08/02/19 Lunch Clear Liquid Diet [DIET] 08/03/19 05:00 BASIC METABOLIC PANEL,BMP [CHEM] Timed CBC W/O DIFF,HEMOGRAM [HEME] Timed (1) INR,PT,PROTHROMBIN TIME [COAG] Timed 08/03/19 05:11 CXR [Chest 1V Frontal] [CR] AM 08/03/19 21:00 Levofloxacin/Dextrose 5%-Water [Levaquin in D5W 750 MG/150 ML] 750 mg Premix Bag 1 bag IV Q48H 08/04/19 05:11 CXR [Chest 1V Frontal] [CR] AM 08/05/19 05:11 CXR [Chest 1V Frontal] [CR] AM - Plan Plan:: ASSESSMENT AND PLAN - Bilateral pneumonia-complicated by acute respiratory failure with hypoxia and hypercapnia. Hypercapnia had resolved this morning. She has been successfully extubated and is stable with nasal cannula at this time. Cultures are pending. Chest x-ray appeared slightly better today. -Antibiotic coverage with levofloxacin and Pip/Tazo -Scheduled and as needed nebulizers -Follow-up cultures -Supplement oxygen as needed COPD with acute exacerbation-secondary to pneumonia as discussed above. Wheezing has resolved. -Continue Solu-Medrol every 8 hours -Scheduled and as needed nebulizers -Additional management as above Chronic systolic congestive heart failure-no evidence for exacerbation at this time. Volume status appears appropriate again today. -Close monitoring of intake and output History of DVT-chronically anticoagulated. INR is still supratherapeutic. -Hold warfarin -Repeat INR in the morning Maintenance issues - - DVT prophylaxis -mechanical. Initiate enoxaparin when INR no longer therapeutic - GI prophylaxis -PPI - Nutrition -start clear liquids - Santana catheter -placed in the emergency room for strict intake and output monitoring in a critical patient, will be removed today Disposition - I would anticipate discharge to the assisted for subacute rehab after the hospital stay John Lott M.D.
[2019-08-02] MEDS: Piperacillin/Tazobactam/Dext 3.375 GM in Premix Bag 1 BAG IV SCH ×3 (10:29→23:26)
[2019-08-02] MEDS ORDERED: Non-Formulary Medication 1 Each (Loperamide Hcl [Imodium A-D] 2 MG) PO PRN (12:19)
[2019-08-02] MEDS ORDERED: Loperamide 2 MG Cap PO PRN (12:28)
[2019-08-02] MEDS: Cholestyramine/Sucrose Powder 4 GM Packet PO SCH ×2 (13:32→20:31)
[2019-08-02] MEDS ORDERED: ASPARTAME PO SCH (14:00)
[2019-08-02] MEDS ORDERED: CHOLESTYRAMINE PO SCH (14:00)
[2019-08-02] MEDS: Nortriptyline 25 MG Cap PO SCH (20:31)
[2019-08-02] MEDS: Lactobacillus Rhamnosus GG (Probiotic) Cap PO SCH (20:32)
[2019-08-02] MEDS: ClonazePAM 0.5 MG Tab PO PRN (20:32)
[2019-08-02] MEDS: Carvedilol 12.5 MG Tab PO SCH (20:32)
[2019-08-02] MEDS: Morphine 2 MG/ML Syringe IVPUSH PRN (20:55)
[2019-08-02] MEDS ORDERED: LORazepam 2 MG/ML SDV IVPUSH ONE (21:10)
[2019-08-02] MEDS ORDERED: Levalbuterol HCl 1.25 MG/3 ML Neb NEB ONE (21:20)
[2019-08-02] MEDS ORDERED: Levalbuterol HCl 1.25 MG/3 ML Neb ONE (21:32)
[2019-08-02] MEDS ORDERED: Levalbuterol HCl 1.25 MG/3 ML Neb NEB PRN (22:09)
[2019-08-02] MEDS ORDERED: Dextrose 5%-0.9% NaCl with KCl 1,000 ML IV SCH (22:13)
[2019-08-02] MEDS ORDERED: Heparin Sodium 5,000 UNITS in Sodium Chloride 0.9% 500 ML IV SCH (22:15)
[2019-08-02] MEDS ORDERED: Heparin Sodium 5,000 Units/ML Vial ONE (22:15)
--- NOTE | 2019-08-02 22:19 | PCM.SN ---
- Free Text/Narrative Note: Patient had increasing respiratory difficulties and progressive shortness of breath tonight after her evening nebulizer. Heart rate went up into the 140s. Respiration rate was in the 30s to 40s. Patient did receive a dose of lorazepam totaling 1 mg as well as 2 mg of morphine with no improvement in her anxiety. Paradoxical reaction to the albuterol with bronchospasm was suspected that she did receive a Xopenex nebulizer without any improvement. Mental status was deteriorating and I did not believe that noninvasive ventilation would be infective so we went to intubation. The patient was successfully intubated by anesthesia. Endotracheal tube placement was confirmed by chest x- ray. Arterial blood gases obtained about 20 minutes after intubation showed a mild acidosis with a pH of 7.28 and a slightly elevated PCO2 at 42. Patient is stable following intubation with respiratory rate around 20 and heart rate slowing down to the 110's. Blood pressure stable status post intubation. Anesthesia did also place an arterial line. Albuterol nebulizers have been discontinued and Xopenex nebulizers have replaced them. No antibiotic changes. She will get a repeat chest x-ray and ABGs in the morning. Critical care time for stabilization and initiation of mechanical ventilation totalled 60 minutes. John Lott MD
[2019-08-02] MEDS ORDERED: Succinylcholine 200 MG/10 ML MDV ONE (22:46)
[2019-08-02] MEDS ORDERED: Propofol 200 MG/20 ML SDV ONE (22:46)
--- NOTE | 2019-08-02 23:11 | CRLCR ---
INDICATION: Intubated TECHNIQUE: Portable upright frontal view of the chest. COMPARISON: Portable single view chest 08/02/2019 at 4:35 a.m. FINDINGS/IMPRESSION: 1. Endotracheal tube tip lies 3.5 cm above the sushma, in appropriate position. 2. There is stable cardiomegaly. Pulmonary vascular congestion is noted, increased since prior. 3. There is no sizable pleural effusion. There is no pneumothorax. Dictated by Roberto Cuellar MD @ Aug 02 2019 11:09PM Signed by Dr. Roberto Cuellar @ Aug 02 2019 11:09PM
[2019-08-02] MEDS: Pantoprazole 40 MG Vial IV SCH (23:25)
[2019-08-03] MEDS: methylPREDNISolone Sodium Succinate 125 MG/2 ML SDV IVPUSH SCH ×2 (00:45→08:21)
--- NOTE | 2019-08-03 02:37 | ANES ---
DATE OF SERVICE: 08/02/2019 Karyn is an 84-year-old female patient of John Lott in our intensive care unit. She is as stated prior to in our intensive care unit with the diagnosis of pneumonia. She had been intubated by 1 of my partners 24 hours ago. She was extubated today and progressively throughout the evening continued with some respiratory distress and reached a point where we were asked to assess her for intubation and arterial line placement. Upon arrival, I found an 84-year-old female patient in the ICU bed with poor respiratory effort. She was sedated with 60 mg of propofol and relaxed with 80 mg of succinylcholine, and with easily visualized vocal cords with a MAC 3. A 7.5 endotracheal tube was placed and secured. Bilateral breath sounds were found. Continued with vitals as prior to. Please refer to nursing notes for vital signs and neuro status. Then, we located the right radial arterial line and was cannulated with a 20-gauge arterial catheter with definite positive blood flow. Catheter was then sewn into place and secured. Sterile technique was used with the arterial line placement. Again, she tolerated both procedures quite well. I reported off to staff in the intensive care unit. Ambrosio Moy CRNA /[id number]
--- NOTE | 2019-08-03 04:10 | CRLCR ---
INDICATION: Intubation TECHNIQUE: Chest 1 views COMPARISON: Chest x-ray 08/02/2019 FINDINGS: Cardiovascular and mediastinum: Mild cardiomegaly with atherosclerotic calcification. Endotracheal tube at the mid to distal trachea. Lungs and pleural spaces: Mild bilateral interstitial and alveolar opacities. Bones and soft tissues: Right glenohumeral osteoarthritis. IMPRESSION: Bilateral interstitial and alveolar opacities fairly similar to the study of 1 day prior Dictated by Joao Marroquin MD @ Aug 03 2019 4:07AM Signed by Dr. Joao Marroquin @ Aug 03 2019 4:08AM
[2019-08-03] MEDS: Piperacillin/Tazobactam/Dext 3.375 GM in Premix Bag 1 BAG IV SCH ×4 (04:27→22:12)
[2019-08-03] MEDS: Levalbuterol HCl 1.25 MG/3 ML Neb NEB SCH ×4 (07:03→20:25)
[2019-08-03] MEDS: propofoL 100 ML IV SCH ×2 (08:13→18:07)
[2019-08-03] MEDS: Hypromellose 0.3% Ophth Soln 15 ML Bottle EYEBOTH SCH (08:27)
[2019-08-03] MEDS ORDERED: Non-Formulary Medication 1 Each (Carboxymethylcellulos/Glycerin [Refresh Optive] 1 DROP) EYEBOTH SCH (09:00)
--- NOTE | 2019-08-03 09:05 | PCM.PN ---
- General Info Date of Service: 08/03/19 Subjective Update: The patient had a good day yesterday after extubation but unfortunately last night had a deterioration of her respiratory status. She was reintubated last night around 10 PM because of increasing respiratory rate and significant hypoxia. Her mental status had declined and we thought that noninvasive ventilation would not be sufficient. She has been stable since intubation. She is on minimal ventilator support. Peak inspiratory pressures are around 20 today. On ABGs her pH is normal and PCO2 is slightly low at 33. She has not had any fevers. Cultures are negative so far. Functional Status: Reports: Other (intubated and sedated ) - Review of Systems General: Denies: Fever - Patient Data Vitals - Most Recent: Last Vital Signs Temp 36.7 C 08/03/19 07:00 Pulse 98 08/03/19 08:00 Resp 16 08/03/19 08:00 BP 131/84 08/03/19 08:00 Pulse Ox 96 08/03/19 08:00 Weight - Most Recent: 65.635 kg I&O - Last 24 Hours: Intake & Output 08/02/19 08/03/19 08/03/19 22:59 06:59 14:59 Intake Total 2058 876 Output Total 450 275 35 Balance 1608 601 -35 Lab Results Last 24 Hours: Laboratory Results - last 24 hr 08/02/19 08/03/19 08/03/19 Range/Units 22:46 04:00 04:00 WBC 10.4 (4.5-11.0) K/uL RBC 3.85 (3.30-5.50) M/uL Hgb 10.3 L (12.0-15.0) g/dL Hct 33.4 L (36.0-48.0) % MCV 87 (80-98) fL MCH 27 (27-31) pg MCHC 31 L (32-36) % Plt Count 237 (150-400) K/uL PT 44.5 H (9.5-12.0) sec INR 4.49 H* (0.80-1.20) Puncture Site Line ABG pH 7.284 L (7.350-7.450) ABG pCO2 42.8 H (35.0-42.0) mmHg ABG pO2 71.3 L (75.0-100.0) mmHg ABG HCO3 19.6 L (22.0-26.0) mmol/L ABG Total CO2 18.3 L (21.0-25.0) mmol/L ABG O2 Saturation 91.9 L (95.0-98.0) % ABG O2 Content 15.4 (15.0-23.0) %vol ABG Base Excess -6.3 mm/L ABG Hemoglobin 12.1 (12.0-16.0) g/dL ABG Oxyhemoglobin 90.2 % ABG Carboxyhemoglobin 1.2 (0.0-1.6) % ABG Methemoglobin 0.7 % O2 Delivery Device Ventilator Oxygen Flow Rate L Sodium (140-148) mmol/L Potassium (3.6-5.2) mmol/L Chloride (100-108) mmol/L Carbon Dioxide (21-32) mmol/L Anion Gap (5.0-14.0) mmol/L BUN (7-18) mg/dL Creatinine (0.6-1.0) mg/dL Est Cr Clr Drug Dosing mL/min Estimated GFR (MDRD) (>60) Glucose (74-106) mg/dL Calcium (8.5-10.1) mg/dL 08/03/19 08/03/19 Range/Units 04:00 04:00 WBC (4.5-11.0) K/uL RBC (3.30-5.50) M/uL Hgb (12.0-15.0) g/dL Hct (36.0-48.0) % MCV (80-98) fL MCH (27-31) pg MCHC (32-36) % Plt Count (150-400) K/uL PT (9.5-12.0) sec INR (0.80-1.20) Puncture Site Line ABG pH 7.407 (7.350-7.450) ABG pCO2 33.7 L (35.0-42.0) mmHg ABG pO2 74.8 L (75.0-100.0) mmHg ABG HCO3 20.8 L (22.0-26.0) mmol/L ABG Total CO2 19.2 L (21.0-25.0) mmol/L ABG O2 Saturation 95.6 (95.0-98.0) % ABG O2 Content 13.8 L (15.0-23.0) %vol ABG Base Excess -2.8 mm/L ABG Hemoglobin 10.5 L (12.0-16.0) g/dL ABG Oxyhemoglobin 93.1 % ABG Carboxyhemoglobin 1.8 H (0.0-1.6) % ABG Methemoglobin 0.8 % O2 Delivery Device Ventilator Oxygen Flow Rate L Sodium 141 (140-148) mmol/L Potassium 4.0 (3.6-5.2) mmol/L Chloride 110 H (100-108) mmol/L Carbon Dioxide 24 (21-32) mmol/L Anion Gap 11.0 (5.0-14.0) mmol/L BUN 14 (7-18) mg/dL Creatinine 0.8 (0.6-1.0) mg/dL Est Cr Clr Drug Dosing 46.34 mL/min Estimated GFR (MDRD) > 60 (>60) Glucose 134 H (74-106) mg/dL Calcium 8.5 (8.5-10.1) mg/dL Matias Results Last 24 Hours: Microbiology 08/01/19 21:11 Gram Stain - Final Endotrachael Aspirate Respiratory Culture - Preliminary NORMAL RESPIRATORY SYLVIA 1 DAY 08/01/19 19:40 Aerobic Blood Culture - Preliminary Blood - Venous - Iv Start NO GROWTH AFTER 1 DAY Anaerobic Blood Culture - Preliminary NO GROWTH AFTER 1 DAY Med Orders - Current: Current Medications Acetaminophen (Tylenol) 650 mg PO Q4H PRN PRN Reason: Pain (Mild 1-3)/fever Acetaminophen (Tylenol) 650 mg RECTAL Q4H PRN PRN Reason: Mild pain/fever Artificial Tears (Genteal Mild To Moderate Ophth Soln) 0 ml EYEBOTH DAILY [facility] Last Admin: 08/03/19 08:27 Dose: 2 drop Carvedilol (Coreg) 12.5 mg PO BID [facility] Last Admin: 08/02/19 20:32 Dose: 12.5 mg Cholestyramine Resin (Cholestyramine Packet) 4 gm PO TID [facility] Last Admin: 08/02/19 20:31 Dose: 4 gm Clonazepam (Klonopin) 0.5 mg PO BEDTIME PRN PRN Reason: Anxiety Last Admin: 08/02/19 20:32 Dose: 0.5 mg Folic Acid (Folic Acid) 1 mg PO DAILY [facility] Levofloxacin/Dextrose 750 mg/ (Premix) 150 mls @ 100 mls/hr IV Q48H [facility] Piperacillin/Tazobactam/ (Dextrose 3.375 gm/ Premix) 50 mls @ 100 mls/hr IV Q6H [facility] Last Admin: 08/03/19 04:27 Dose: 100 mls/hr Propofol (Diprivan 100 Ml) 100 mls @ 1.969 mls/hr IV TITRATE [facility]; Protocol Last Admin: 08/03/19 08:13 Dose: 20 mcg/kg/min, 7.876 mls/hr Heparin Sodium (Porcine) 5,000 (units/ Sodium Chloride) 501 mls @ 1 mls/hr IV ASDIRECTED [facility] Last Admin: 08/02/19 22:30 Dose: 1 mls/hr Potassium Chloride/Dextrose/Sod Cl (D5 Ns With 20 Meq Kcl) 1,000 mls @ 25 mls/ hr IV ASDIRECTED [facility] Phytonadione 1 mg/ Sodium (Chloride) 50.5 mls @ 100 mls/hr IV ONETIME ONE Stop: 08/03/19 09:33 Lactobacillus Rhamnosus (Culturelle) 1 cap PO BID [facility] Last Admin: 08/02/19 20:32 Dose: 1 cap Levalbuterol HCl (Xopenex) 1.25 mg NEB QIDRT [facility] Last Admin: 08/03/19 07:03 Dose: 1.25 mg Levalbuterol HCl (Xopenex) 1.25 mg NEB Q4H PRN PRN Reason: shortness of breath/wheezing Loperamide HCl (Imodium) 2 mg PO QID PRN PRN Reason: DIARRHEA Lorazepam (Ativan) 0.5 mg IVPUSH Q4H PRN PRN Reason: Anxiety Methylprednisolone Sodium Succinate (Solu-Medrol) 40 mg IVPUSH Q8H [facility] Morphine Sulfate (Morphine) 2 mg IVPUSH Q2H PRN PRN Reason: Pain (severe 7-10) Last Admin: 08/02/19 20:55 Dose: 2 mg Nortriptyline HCl (Nortriptyline) 50 mg PO BEDTIME [facility] Last Admin: 08/02/19 20:31 Dose: 50 mg Ondansetron HCl (Zofran Odt) 4 mg PO Q6H PRN PRN Reason: Nausea able to take PO Ondansetron HCl (Zofran) 4 mg IV Q6H PRN PRN Reason: Nausea/Vomiting Pantoprazole Sodium (Protonix Iv) 40 mg IV Q24H [facility] Last Admin: 08/02/19 23:25 Dose: 40 mg Theophylline (Theophylline Anhydrous) 300 mg PO DAILY [facility] Discontinued Medications Albuterol (Proventil Neb Soln) 2.5 mg NEB Q4H PRN PRN Reason: Shortness Of Breath/wheezing Albuterol/Ipratropium (Duoneb 3.0-0.5 Mg/3 Ml) Confirm Administered Dose 3 ml .ROUTE .STK-MED ONE Stop: 08/01/19 19:47 Last Admin: 08/01/19 21:39 Dose: Not Given Albuterol/Ipratropium (Duoneb 3.0-0.5 Mg/3 Ml) 3 ml NEB ONETIME ONE Stop: 08/01/19 19:48 Last Admin: 08/01/19 21:50 Dose: 3 ml Albuterol/Ipratropium (Duoneb 3.0-0.5 Mg/3 Ml) 3 ml NEB QIDRT [facility] Last Admin: 08/02/19 20:36 Dose: 3 ml Heparin Sodium (Porcine) (Heparin Sodium) Confirm Administered Dose 5,000 units .ROUTE .STK-MED ONE Stop: 08/01/19 20:13 Last Admin: 08/01/19 21:39 Dose: Not Given Heparin Sodium (Porcine) (Heparin Sodium) Confirm Administered Dose 5,000 units .ROUTE .STK-MED ONE Stop: 08/01/19 20:15 Last Admin: 08/01/19 21:39 Dose: Not Given Heparin Sodium (Porcine) (Heparin Sodium) Confirm Administered Dose 5,000 units .ROUTE .STK-MED ONE Stop: 08/02/19 22:16 Last Admin: 08/03/19 00:35 Dose: Not Given Sodium Chloride (Normal Saline) Confirm Administered Dose 500 mls @ as directed .ROUTE .STK-MED ONE Stop: 08/01/19 20:13 Last Admin: 08/01/19 21:40 Dose: Not Given Levofloxacin/Dextrose 750 mg/ (Premix) 150 mls @ 100 mls/hr IV ONETIME ONE Stop: 08/01/19 22:13 Last Admin: 08/01/19 21:00 Dose: 100 mls/hr Vancomycin HCl 1 gm/ Sodium (Chloride) 250 mls @ 150 mls/hr IV ONETIME ONE Stop: 08/01/19 22:22 Last Admin: 08/01/19 23:26 Dose: Not Given Propofol (Diprivan 100 Ml) Confirm Administered Dose 100 mls @ as directed .ROUTE .STK-MED ONE Stop: 08/01/19 21:24 Last Admin: 08/01/19 23:04 Dose: Not Given Potassium Chloride/Dextrose/Sod Cl (D5 Ns With 20 Meq Kcl) 1,000 mls @ 100 mls/ hr IV ASDIRECTED [facility] Last Admin: 08/02/19 20:17 Dose: 100 mls/hr Heparin Sodium (Porcine) 5,000 (units/ Sodium Chloride) 501 mls @ 1 mls/hr IV ASDIRECTED [facility] Last Admin: 08/02/19 07:45 Dose: 1 mls/hr Piperacillin Sod/Tazobactam (Sod 3.375 gm/ Sodium Chloride) 50 mls @ 100 mls/ hr IV Q6H [facility] Last Admin: 08/02/19 03:52 Dose: 100 mls/hr Propofol (Diprivan 100 Ml) 100 mls @ 2.041 mls/hr IV TITRATE JESUS ALBERTO; Protocol Last Titration: 08/02/19 09:38 Dose: 0 mcg/kg/min, 0 mls/hr Levalbuterol HCl (Xopenex) Confirm Administered Dose 1.25 mg .ROUTE .STK-MED ONE Stop: 08/02/19 21:33 Last Admin: 08/02/19 23:11 Dose: Not Given Levalbuterol HCl (Xopenex) 1.25 mg NEB ONETIME ONE Stop: 08/02/19 21:21 Last Admin: 08/02/19 21:15 Dose: 1.25 mg Lorazepam (Ativan) 1 mg IVPUSH ONETIME ONE Stop: 08/02/19 21:11 Last Admin: 08/02/19 21:07 Dose: 1 mg Methylprednisolone Sodium Succinate (Solu-Medrol) 125 mg IVPUSH ONETIME ONE Stop: 08/01/19 19:53 Last Admin: 08/01/19 19:42 Dose: 125 mg Methylprednisolone Sodium Succinate (Solu-Medrol) 62.5 mg IVPUSH Q6H [facility] Last Admin: 08/02/19 08:27 Dose: 62.5 mg Methylprednisolone Sodium Succinate (Solu-Medrol) 62.5 mg IVPUSH Q8H [facility] Last Admin: 08/03/19 08:21 Dose: 62.5 mg Midazolam HCl (Versed 1 Mg/Ml) Confirm Administered Dose 4 mg .ROUTE .STK-MED ONE Stop: 08/01/19 20:19 Last Admin: 08/01/19 21:42 Dose: Not Given Midazolam HCl (Versed 1 Mg/Ml) Confirm Administered Dose 5 mg .ROUTE .STK-MED ONE Stop: 08/01/19 20:44 Last Admin: 08/01/19 21:43 Dose: Not Given Midazolam HCl (Versed 1 Mg/Ml) 4 mg IVPUSH ONETIME ONE Stop: 08/01/19 21:43 Last Admin: 08/01/19 20:25 Dose: 4 mg Midazolam HCl (Versed 1 Mg/Ml) 3 mg IVPUSH ONETIME ONE Stop: 08/01/19 20:41 Last Admin: 08/01/19 20:40 Dose: 3 mg Propofol (Diprivan 20 Ml) Confirm Administered Dose 200 mg .ROUTE .STK-MED ONE Stop: 08/01/19 19:59 Propofol (Diprivan 20 Ml) Confirm Administered Dose 200 mg .ROUTE .STK-MED ONE Stop: 08/02/19 22:47 Succinylcholine Chloride (Quelicin) Confirm Administered Dose 200 mg .ROUTE .STK -MED ONE Stop: 08/01/19 19:59 Succinylcholine Chloride (Quelicin) Confirm Administered Dose 200 mg .ROUTE .STK -MED ONE Stop: 08/01/19 20:01 Succinylcholine Chloride (Quelicin) Confirm Administered Dose 200 mg .ROUTE .STK -MED ONE Stop: 08/02/19 22:47 - Exam Quality Assessment: Supplemental Oxygen, Urine Catheter, DVT Prophylaxis, Restraints. No: Skin Breakdown General: No Acute Distress, Sedated. No: Alert Neck: Supple, No JVD Lungs: Normal Respiratory Effort, Crackles (rare right lung base) Cardiovascular: Regular Rate, Regular Rhythm, No Murmurs GI/Abdominal Exam: Normal Bowel Sounds, Soft, No Distention Extremities: No Pedal Edema. No: Increased Warmth Skin: Warm, Dry Psy/Mental Status: No: Alert, Agitated Sepsis Event Note - Evaluation Sepsis Screening Result: No Definite Risk - Focused Exam Vital Signs: Vital Signs Temp Pulse Resp BP BP Pulse Ox 08/03/19 08:00 98 16 131/84 96 08/03/19 07:38 96 08/03/19 07:03 87 08/03/19 07:00 36.7 C 93 16 126/76 96 08/03/19 06:00 16 115/65 108/51 L 96 08/03/19 05:00 36.4 C 16 105/48 L 113/55 L 96 08/03/19 04:00 16 106/56 L 107/47 L 95 08/03/19 03:00 16 108/55 L 96/44 L 95 08/03/19 02:00 16 104/60 115/48 L 94 L 08/03/19 01:00 36.2 C 16 100/51 L 100/42 L 96 08/02/19 23:00 18 124/61 92 L 08/02/19 22:30 16 124/68 95 08/02/19 22:12 35 H 153/87 H 91 L 08/02/19 22:00 34 H 136/97 H 88 L 08/02/19 21:30 36 H 145/104 H 78 L 08/02/19 21:15 40 H 86 L Date Exam was Performed: 08/03/19 Time Exam was Performed: 13:56 - Problem List & Annotations (1) Pneumonia SNOMED Code(s): 006160930 Code(s): J18.9 - PNEUMONIA, UNSPECIFIED ORGANISM Status: Acute Current Visit: Yes Qualifiers: Pneumonia type: due to unspecified organism Laterality: bilateral Lung location: unspecified part of lung Qualified Code(s): J18.9 - Pneumonia, unspecified organism (2) Acute exacerbation of chronic obstructive pulmonary disease SNOMED Code(s): 510399201 Code(s): J44.1 - CHRONIC OBSTRUCTIVE PULMONARY DISEASE W (ACUTE) EXACERBATION Status: Acute Current Visit: Yes (3) Acute respiratory failure with hypoxia and hypercapnia SNOMED Code(s): 894627495 Code(s): J96.01 - ACUTE RESPIRATORY FAILURE WITH HYPOXIA; J96.02 - ACUTE RESPIRATORY FAILURE WITH HYPERCAPNIA Status: Acute Current Visit: Yes (4) CHF (congestive heart failure) SNOMED Code(s): 36207129 Code(s): I50.9 - HEART FAILURE, UNSPECIFIED Status: Chronic Current Visit : Yes Qualifiers: Heart failure type: systolic Heart failure chronicity: chronic Qualified Code(s): I50.22 - Chronic systolic (congestive) heart failure (5) Hx of deep venous thrombosis SNOMED Code(s): 587516206 Code(s): Z86.718 - PERSONAL HISTORY OF OTHER VENOUS THROMBOSIS AND EMBOLISM Status: Chronic Current Visit: No - Problem List Review Problem List Initiated/Reviewed/Updated: Yes - My Orders Last 24 Hours: My Active Orders 08/02/19 10:00 Piperacillin/Tazobactam/Dext [Zosyn in Dextrose Iso-Osmotic 3.375 GM] 3.375 gm Premix Bag 1 bag IV Q6H 08/02/19 12:19 ClonazePAM [KlonoPIN] 0.5 mg PO BEDTIME PRN 08/02/19 12:28 Loperamide [Imodium] 2 mg PO QID PRN 08/02/19 14:00 Cholestyramine/Sucrose [Cholestyramine Packet] 4 gm PO TID 08/02/19 21:00 Lactobacillus Rhamnosus GG [Culturelle] 1 cap PO BID Nortriptyline 50 mg PO BEDTIME carvediloL [Coreg] 12.5 mg PO BID 08/02/19 21:54 RT Aerosol Therapy [RC] ASDIRECTED 08/02/19 22:08 Mechanical Ventilation [RT Ventilator, Adult] [RC] Q2H RASS Sedation Scale [RC] ASDIRECTED Desired Level of Sedation (RASS) [AST] Click to Edit 08/02/19 22:09 RT Aerosol Therapy [RC] ASDIRECTED Levalbuterol HCl [Xopenex] 1.25 mg NEB Q4H PRN 08/02/19 22:13 Dextrose 5%-0.9% NaCl with KCl [D5 NS with 20 mEq KCl] 1,000 ml IV ASDIRECTED 08/02/19 22:15 Heparin Sodium 5,000 units Sodium Chloride 0.9% [Normal Saline] 500 ml IV ASDIRECTED Propofol [Diprivan 100 ML] 100 ml IV TITRATE 08/02/19 22:17 Urinary Catheter Assessment [RC] Q6H 08/02/19 22:18 Nrsg Assess Restraint Init/Mon [RC] Q2H 08/02/19 22:30 Initiate/Renew Non-Violent Restraints (All Ages) Q24H Insert Santana Catheter [Insert Urinary Catheter] [OM.PC] Q24H 08/03/19 07:00 Levalbuterol HCl [Xopenex] 1.25 mg NEB QIDRT 08/03/19 09:00 Folic Acid 1 mg PO DAILY Hypromellose [GenTeal Mild to Moderate Ophth Soln] 0 ml EYEBOTH DAILY Theophylline [Theophylline Anhydrous] 300 mg PO DAILY 08/03/19 09:03 Phytonadione [AquaMephyton] 1 mg Sodium Chloride 0.9% [Normal Saline] 50 ml IV ONETIME 08/03/19 16:00 methylPREDNISolone Sod Succ [Solu-MEDROL] 40 mg IVPUSH Q8H 08/03/19 17:00 BLOOD GAS ARTERIAL [BG] Timed 08/03/19 21:00 Levofloxacin/Dextrose 5%-Water [Levaquin in D5W 750 MG/150 ML] 750 mg Premix Bag 1 bag IV Q48H 08/03/19 Breakfast NPO Now [Nothing per Oral Now Diet] [DIET] 08/04/19 05:00 BASIC METABOLIC PANEL,BMP [CHEM] Timed BLOOD GAS ARTERIAL [BG] Timed CBC W/O DIFF,HEMOGRAM [HEME] Timed (1) INR,PT,PROTHROMBIN TIME [COAG] Timed 08/04/19 05:11 CXR [Chest 1V Frontal] [CR] AM CXR [Chest 1V Frontal] [CR] AM 08/04/19 07:00 RT Ventilator Weaning [RC] DAILY 08/05/19 05:11 CXR [Chest 1V Frontal] [CR] AM - Plan Plan:: ASSESSMENT AND PLAN - Bilateral pneumonia-complicated by acute respiratory failure with hypoxia and hypercapnia. Reintubated last night but stable since intubation. No fevers. Cultures negative so far. Infiltrates stable to slightly improved on chest x- ray. I am suspicious her decline last night was related to a paradoxical reaction to bronchodilators. -Antibiotic coverage with levofloxacin and Pip/Tazo -Repeat ABGs this evening and in the morning -Repeat chest x-ray in the morning -Scheduled and as needed leave albuterol nebulizers -Follow-up cultures -Supplement oxygen as needed COPD with acute exacerbation-secondary to pneumonia as discussed above. Wheezing has resolved. -Continue Solu-Medrol every 8 hours -Scheduled and as needed nebulizers -Additional management as above Chronic systolic congestive heart failure-no evidence for exacerbation at this time. Volume status remains appropriate. -Close monitoring of intake and output History of DVT-chronically anticoagulated. INR is still supratherapeutic. -1 mg of vitamin K IV today -Hold warfarin -Repeat INR in the morning Maintenance issues - - DVT prophylaxis -mechanical. Initiate enoxaparin when INR no longer therapeutic - GI prophylaxis -PPI - Nutrition -nothing by mouth - Santana catheter -placed in the emergency room for strict intake and output monitoring in a critical patient, replaced 08/02 at the time of intubation Disposition - I would anticipate discharge to the long term for subacute rehab after the hospital stay John Lott M.D.
[2019-08-03] MEDS ORDERED: Phytonadione 1 MG in Sodium Chloride 0.9% 50 ML IV ONE (10:00)
[2019-08-03] MEDS: methylPREDNISolone Sodium Succinate 40 MG/1 ML SDV IV SCH ×2 (15:28→23:47)
[2019-08-03] MEDS ORDERED: Sodium Chloride 0.9% 500 ML IV ONE (17:51)
[2019-08-03] MEDS: Levofloxacin/Dextrose 5%-Water 750 MG in Premix Bag 1 BAG IV SCH (20:25)
[2019-08-03] MEDS: Pantoprazole 40 MG Vial IV SCH (22:12)
[2019-08-04] MEDS: propofoL 100 ML IV SCH ×2 (02:29→18:40)
--- NOTE | 2019-08-04 02:46 | CRLCR ---
INDICATION: Intubation TECHNIQUE: Chest 1 views COMPARISON: Chest x-ray 08/03/2019 FINDINGS: Cardiovascular and mediastinum: Mild cardiomegaly with endotracheal tube at the midtrachea level. Lungs and pleural spaces: Trace right pleural effusion with pulmonary cephalization and mild bilateral interstitial and alveolar opacities. Bones and soft tissues: No significant findings. IMPRESSION: Trace right pleural effusion with mild bilateral interstitial and alveolar opacities. Compared to the prior examination the right pleural effusion appears new while bilateral opacities are fairly similar. Dictated by Joao Marroquin MD @ Aug 04 2019 2:43AM Signed by Dr. Joao Marroquin @ Aug 04 2019 2:45AM
[2019-08-04] MEDS: Piperacillin/Tazobactam/Dext 3.375 GM in Premix Bag 1 BAG IV SCH ×4 (04:18→21:39)
[2019-08-04] MEDS: Levalbuterol HCl 1.25 MG/3 ML Neb NEB SCH ×4 (07:04→21:40)
[2019-08-04] MEDS: methylPREDNISolone Sodium Succinate 40 MG/1 ML SDV IV SCH ×3 (08:28→15:10)
[2019-08-04] MEDS: Hypromellose 0.3% Ophth Soln 15 ML Bottle EYEBOTH SCH (08:30)
--- NOTE | 2019-08-04 09:05 | PCM.PN ---
- General Info Date of Service: 08/04/19 Subjective Update: There were no acute events overnight. The patient rested comfortably on the ventilator and had stable vital signs. She did have a low-grade fever early this morning. Sedation has been removed and she is alert and interactive. She is able to communicate by writing. ABGs this morning were essentially normal. She is able to follow commands. She is having bowel movements. We obtained a CT scan of the chest which showed a moderate left and large right pleural effusion as well as some pulmonary edema. Echocardiogram showed that her ejection fraction has dropped over the last few months down to around 30%. She also has severe mitral regurgitation and a dilated inferior vena cava. Functional Status: Reports: Pain Controlled, Other (intubated) - Review of Systems General: Reports: Fever - Patient Data Vitals - Most Recent: Last Vital Signs Temp 37.8 C 08/04/19 08:00 Pulse 96 08/04/19 08:00 Resp 22 H 08/04/19 08:00 BP 121/54 L 08/04/19 08:00 Pulse Ox 96 08/04/19 08:00 Weight - Most Recent: 65.635 kg I&O - Last 24 Hours: Intake & Output 08/03/19 08/04/19 08/04/19 22:59 06:59 14:59 Intake Total 1119 824 Output Total 195 450 Balance 924 374 Lab Results Last 24 Hours: Laboratory Results - last 24 hr 08/03/19 08/04/19 08/04/19 Range/Units 17:00 04:48 04:48 WBC 10.0 (4.5-11.0) K/uL RBC 4.54 (3.30-5.50) M/uL Hgb 12.0 (12.0-15.0) g/dL Hct 39.5 (36.0-48.0) % MCV 87 (80-98) fL MCH 26 L (27-31) pg MCHC 30 L (32-36) % Plt Count 265 (150-400) K/uL PT 14.6 H (9.5-12.0) sec INR 1.38 H D (0.80-1.20) Puncture Site A-line ABG pH 7.387 (7.350-7.450) ABG pCO2 36.2 (35.0-42.0) mmHg ABG pO2 84.1 (75.0-100.0) mmHg ABG HCO3 21.3 L (22.0-26.0) mmol/L ABG Total CO2 19.7 L (21.0-25.0) mmol/L ABG O2 Saturation 96.2 (95.0-98.0) % ABG O2 Content 14.1 L (15.0-23.0) %vol ABG Base Excess -2.8 mm/L ABG Hemoglobin 10.6 L (12.0-16.0) g/dL ABG Oxyhemoglobin 94.5 % ABG Carboxyhemoglobin 1.0 (0.0-1.6) % ABG Methemoglobin 0.8 % Sukhjinder Test A-line O2 Delivery Device Ventilator Oxygen Flow Rate 40 L Sodium (140-148) mmol/L Potassium (3.6-5.2) mmol/L Chloride (100-108) mmol/L Carbon Dioxide (21-32) mmol/L Anion Gap (5.0-14.0) mmol/L BUN (7-18) mg/dL Creatinine (0.6-1.0) mg/dL Est Cr Clr Drug Dosing mL/min Estimated GFR (MDRD) (>60) Glucose (74-106) mg/dL Calcium (8.5-10.1) mg/dL 08/04/19 08/04/19 Range/Units 04:48 04:48 WBC (4.5-11.0) K/uL RBC (3.30-5.50) M/uL Hgb (12.0-15.0) g/dL Hct (36.0-48.0) % MCV (80-98) fL MCH (27-31) pg MCHC (32-36) % Plt Count (150-400) K/uL PT (9.5-12.0) sec INR (0.80-1.20) Puncture Site A-line ABG pH 7.362 (7.350-7.450) ABG pCO2 37.0 (35.0-42.0) mmHg ABG pO2 87.9 (75.0-100.0) mmHg ABG HCO3 20.5 L (22.0-26.0) mmol/L ABG Total CO2 18.6 L (21.0-25.0) mmol/L ABG O2 Saturation 96.5 (95.0-98.0) % ABG O2 Content 16.3 (15.0-23.0) %vol ABG Base Excess -3.9 mm/L ABG Hemoglobin 12.2 (12.0-16.0) g/dL ABG Oxyhemoglobin 95.0 % ABG Carboxyhemoglobin 0.9 (0.0-1.6) % ABG Methemoglobin 0.7 % Sukhjinder Test A-line O2 Delivery Device Ventilator Oxygen Flow Rate L Sodium 142 (140-148) mmol/L Potassium 4.4 (3.6-5.2) mmol/L Chloride 110 H (100-108) mmol/L Carbon Dioxide 22 (21-32) mmol/L Anion Gap 14.4 H (5.0-14.0) mmol/L BUN 22 H D (7-18) mg/dL Creatinine 0.8 (0.6-1.0) mg/dL Est Cr Clr Drug Dosing 46.34 mL/min Estimated GFR (MDRD) > 60 (>60) Glucose 125 H (74-106) mg/dL Calcium 8.5 (8.5-10.1) mg/dL Matias Results Last 24 Hours: Microbiology 08/01/19 21:11 Gram Stain - Final Endotrachael Aspirate Respiratory Culture - Final NORMAL RESPIRATORY SYLVIA 2 DAYS 08/01/19 19:40 Aerobic Blood Culture - Preliminary Blood - Venous - Iv Start NO GROWTH AFTER 2 DAYS Anaerobic Blood Culture - Preliminary NO GROWTH AFTER 2 DAYS Med Orders - Current: Current Medications Acetaminophen (Tylenol) 650 mg PO Q4H PRN PRN Reason: Pain (Mild 1-3)/fever Acetaminophen (Tylenol) 650 mg RECTAL Q4H PRN PRN Reason: Mild pain/fever Artificial Tears (Genteal Mild To Moderate Ophth Soln) 0 ml EYEBOTH DAILY [facility] Last Admin: 08/04/19 08:30 Dose: 2 drop Carvedilol (Coreg) 12.5 mg PO BID [facility] Last Admin: 08/02/19 20:32 Dose: 12.5 mg Cholestyramine Resin (Cholestyramine Packet) 4 gm PO TID [facility] Last Admin: 08/02/19 20:31 Dose: 4 gm Clonazepam (Klonopin) 0.5 mg PO BEDTIME PRN PRN Reason: Anxiety Last Admin: 08/02/19 20:32 Dose: 0.5 mg Enoxaparin Sodium (Lovenox) 40 mg SUBCUT DAILY [facility] Folic Acid (Folic Acid) 1 mg PO DAILY [facility] Levofloxacin/Dextrose 750 mg/ (Premix) 150 mls @ 100 mls/hr IV Q48H [facility] Last Admin: 08/03/19 20:25 Dose: 100 mls/hr Piperacillin/Tazobactam/ (Dextrose 3.375 gm/ Premix) 50 mls @ 100 mls/hr IV Q6H [facility] Last Admin: 08/04/19 04:18 Dose: 100 mls/hr Propofol (Diprivan 100 Ml) 100 mls @ 1.969 mls/hr IV TITRATE [facility]; Protocol Last Admin: 08/04/19 02:29 Dose: 25 mcg/kg/min, 9.845 mls/hr Heparin Sodium (Porcine) 5,000 (units/ Sodium Chloride) 501 mls @ 1 mls/hr IV ASDIRECTED [facility] Last Admin: 08/02/19 22:30 Dose: 1 mls/hr Potassium Chloride/Dextrose/Sod Cl (D5 Ns With 20 Meq Kcl) 1,000 mls @ 75 mls/ hr IV ASDIRECTED [facility] Last Admin: 08/04/19 01:44 Dose: 75 mls/hr Lactobacillus Rhamnosus (Culturelle) 1 cap PO BID [facility] Last Admin: 08/02/19 20:32 Dose: 1 cap Levalbuterol HCl (Xopenex) 1.25 mg NEB QIDRT [facility] Last Admin: 08/04/19 07:04 Dose: 1.25 mg Levalbuterol HCl (Xopenex) 1.25 mg NEB Q4H PRN PRN Reason: shortness of breath/wheezing Loperamide HCl (Imodium) 2 mg PO QID PRN PRN Reason: DIARRHEA Lorazepam (Ativan) 0.5 mg IVPUSH Q4H PRN PRN Reason: Anxiety Methylprednisolone Sodium Succinate (Solu-Medrol) 40 mg IV Q8H [facility] Last Admin: 08/04/19 08:28 Dose: 40 mg Morphine Sulfate (Morphine) 2 mg IVPUSH Q2H PRN PRN Reason: Pain (severe 7-10) Last Admin: 08/02/19 20:55 Dose: 2 mg Nortriptyline HCl (Nortriptyline) 50 mg PO BEDTIME [facility] Last Admin: 08/02/19 20:31 Dose: 50 mg Ondansetron HCl (Zofran Odt) 4 mg PO Q6H PRN PRN Reason: Nausea able to take PO Ondansetron HCl (Zofran) 4 mg IV Q6H PRN PRN Reason: Nausea/Vomiting Pantoprazole Sodium (Protonix Iv) 40 mg IV Q24H [facility] Last Admin: 08/03/19 22:12 Dose: 40 mg Theophylline (Theophylline Anhydrous) 300 mg PO DAILY [facility] Discontinued Medications Albuterol (Proventil Neb Soln) 2.5 mg NEB Q4H PRN PRN Reason: Shortness Of Breath/wheezing Albuterol/Ipratropium (Duoneb 3.0-0.5 Mg/3 Ml) Confirm Administered Dose 3 ml .ROUTE .STK-MED ONE Stop: 08/01/19 19:47 Last Admin: 08/01/19 21:39 Dose: Not Given Albuterol/Ipratropium (Duoneb 3.0-0.5 Mg/3 Ml) 3 ml NEB ONETIME ONE Stop: 08/01/19 19:48 Last Admin: 08/01/19 21:50 Dose: 3 ml Albuterol/Ipratropium (Duoneb 3.0-0.5 Mg/3 Ml) 3 ml NEB QIDRT [facility] Last Admin: 08/02/19 20:36 Dose: 3 ml Heparin Sodium (Porcine) (Heparin Sodium) Confirm Administered Dose 5,000 units .ROUTE .STK-MED ONE Stop: 08/01/19 20:13 Last Admin: 08/01/19 21:39 Dose: Not Given Heparin Sodium (Porcine) (Heparin Sodium) Confirm Administered Dose 5,000 units .ROUTE .STK-MED ONE Stop: 08/01/19 20:15 Last Admin: 08/01/19 21:39 Dose: Not Given Heparin Sodium (Porcine) (Heparin Sodium) Confirm Administered Dose 5,000 units .ROUTE .STK-MED ONE Stop: 08/02/19 22:16 Last Admin: 08/03/19 00:35 Dose: Not Given Sodium Chloride (Normal Saline) Confirm Administered Dose 500 mls @ as directed .ROUTE .STK-MED ONE Stop: 08/01/19 20:13 Last Admin: 08/01/19 21:40 Dose: Not Given Levofloxacin/Dextrose 750 mg/ (Premix) 150 mls @ 100 mls/hr IV ONETIME ONE Stop: 08/01/19 22:13 Last Admin: 08/01/19 21:00 Dose: 100 mls/hr Vancomycin HCl 1 gm/ Sodium (Chloride) 250 mls @ 150 mls/hr IV ONETIME ONE Stop: 08/01/19 22:22 Last Admin: 08/01/19 23:26 Dose: Not Given Propofol (Diprivan 100 Ml) Confirm Administered Dose 100 mls @ as directed .ROUTE .STK-MED ONE Stop: 08/01/19 21:24 Last Admin: 08/01/19 23:04 Dose: Not Given Potassium Chloride/Dextrose/Sod Cl (D5 Ns With 20 Meq Kcl) 1,000 mls @ 100 mls/ hr IV ASDIRECTED [facility] Last Admin: 08/02/19 20:17 Dose: 100 mls/hr Heparin Sodium (Porcine) 5,000 (units/ Sodium Chloride) 501 mls @ 1 mls/hr IV ASDIRECTED [facility] Last Admin: 08/02/19 07:45 Dose: 1 mls/hr Piperacillin Sod/Tazobactam (Sod 3.375 gm/ Sodium Chloride) 50 mls @ 100 mls/ hr IV Q6H [facility] Last Admin: 08/02/19 03:52 Dose: 100 mls/hr Propofol (Diprivan 100 Ml) 100 mls @ 2.041 mls/hr IV TITRATE [facility]; Protocol Last Titration: 08/02/19 09:38 Dose: 0 mcg/kg/min, 0 mls/hr Phytonadione 1 mg/ Sodium (Chloride) 50.5 mls @ 100 mls/hr IV ONETIME ONE Stop: 08/03/19 10:30 Last Admin: 08/03/19 09:48 Dose: 100 mls/hr Sodium Chloride (Normal Saline) 500 mls @ 500 mls/hr IV .BOLUS ONE Stop: 08/03/19 18:50 Last Admin: 08/03/19 18:02 Dose: 500 mls/hr Levalbuterol HCl (Xopenex) Confirm Administered Dose 1.25 mg .ROUTE .STK-MED ONE Stop: 08/02/19 21:33 Last Admin: 08/02/19 23:11 Dose: Not Given Levalbuterol HCl (Xopenex) 1.25 mg NEB ONETIME ONE Stop: 08/02/19 21:21 Last Admin: 08/02/19 21:15 Dose: 1.25 mg Lorazepam (Ativan) 1 mg IVPUSH ONETIME ONE Stop: 08/02/19 21:11 Last Admin: 08/02/19 21:07 Dose: 1 mg Methylprednisolone Sodium Succinate (Solu-Medrol) 125 mg IVPUSH ONETIME ONE Stop: 08/01/19 19:53 Last Admin: 08/01/19 19:42 Dose: 125 mg Methylprednisolone Sodium Succinate (Solu-Medrol) 62.5 mg IVPUSH Q6H [facility] Last Admin: 08/02/19 08:27 Dose: 62.5 mg Methylprednisolone Sodium Succinate (Solu-Medrol) 62.5 mg IVPUSH Q8H [facility] Last Admin: 08/03/19 08:21 Dose: 62.5 mg Midazolam HCl (Versed 1 Mg/Ml) Confirm Administered Dose 4 mg .ROUTE .STK-MED ONE Stop: 08/01/19 20:19 Last Admin: 08/01/19 21:42 Dose: Not Given Midazolam HCl (Versed 1 Mg/Ml) Confirm Administered Dose 5 mg .ROUTE .STK-MED ONE Stop: 08/01/19 20:44 Last Admin: 08/01/19 21:43 Dose: Not Given Midazolam HCl (Versed 1 Mg/Ml) 4 mg IVPUSH ONETIME ONE Stop: 08/01/19 21:43 Last Admin: 08/01/19 20:25 Dose: 4 mg Midazolam HCl (Versed 1 Mg/Ml) 3 mg IVPUSH ONETIME ONE Stop: 08/01/19 20:41 Last Admin: 08/01/19 20:40 Dose: 3 mg Propofol (Diprivan 20 Ml) Confirm Administered Dose 200 mg .ROUTE .STK-MED ONE Stop: 08/01/19 19:59 Propofol (Diprivan 20 Ml) Confirm Administered Dose 200 mg .ROUTE .STK-MED ONE Stop: 08/02/19 22:47 Succinylcholine Chloride (Quelicin) Confirm Administered Dose 200 mg .ROUTE .STK -MED ONE Stop: 08/01/19 19:59 Succinylcholine Chloride (Quelicin) Confirm Administered Dose 200 mg .ROUTE .STK -MED ONE Stop: 08/01/19 20:01 Succinylcholine Chloride (Quelicin) Confirm Administered Dose 200 mg .ROUTE .InstaMed ONE Stop: 08/02/19 22:47 - Exam Quality Assessment: Supplemental Oxygen, Urine Catheter, Restraints General: Alert, Cooperative, No Acute Distress HEENT: Pupils Equal Lungs: Normal Respiratory Effort, Crackles (both lung bases). No: Wheezing Cardiovascular: Regular Rate, Regular Rhythm GI/Abdominal Exam: Soft, No Distention Extremities: No Pedal Edema. No: Increased Warmth Skin: Warm, Dry Psy/Mental Status: Alert. No: Agitated Sepsis Event Note - Evaluation Sepsis Screening Result: No Definite Risk - Focused Exam Vital Signs: Vital Signs Temp Pulse Resp BP Pulse Ox 08/04/19 08:00 37.8 C 96 22 H 121/54 L 96 08/04/19 07:04 99 08/04/19 07:00 96 96 08/04/19 06:00 102 H 16 130/91 H 96 08/04/19 05:00 105 H 16 140/92 H 96 08/04/19 04:00 36.2 C 106 H 17 145/96 H 97 08/04/19 03:00 106 H 16 137/88 97 08/04/19 02:00 36.2 C 101 H 16 132/87 96 08/04/19 01:00 104 H 16 132/91 H 98 08/04/19 00:00 36.2 C 103 H 16 132/78 98 08/03/19 23:00 93 16 119/71 98 08/03/19 22:00 93 16 116/66 97 Date Exam was Performed: 08/04/19 Time Exam was Performed: 14:23 - Problem List & Annotations (1) CHF (congestive heart failure) SNOMED Code(s): 12040815 Code(s): I50.9 - HEART FAILURE, UNSPECIFIED Status: Chronic Current Visit : Yes Qualifiers: Heart failure type: systolic Heart failure chronicity: acute on chronic Qualified Code(s): I50.23 - Acute on chronic systolic (congestive) heart failure (2) Pneumonia SNOMED Code(s): 844430625 Code(s): J18.9 - PNEUMONIA, UNSPECIFIED ORGANISM Status: Acute Current Visit: Yes Qualifiers: Pneumonia type: due to unspecified organism Laterality: left Lung location: lower lobe of lung Qualified Code(s): J18.9 - Pneumonia, unspecified organism (3) Acute exacerbation of chronic obstructive pulmonary disease SNOMED Code(s): 514139020 Code(s): J44.1 - CHRONIC OBSTRUCTIVE PULMONARY DISEASE W (ACUTE) EXACERBATION Status: Acute Current Visit: Yes (4) Acute respiratory failure with hypoxia and hypercapnia SNOMED Code(s): 780671422 Code(s): J96.01 - ACUTE RESPIRATORY FAILURE WITH HYPOXIA; J96.02 - ACUTE RESPIRATORY FAILURE WITH HYPERCAPNIA Status: Acute Current Visit: Yes (5) Hx of deep venous thrombosis SNOMED Code(s): 285447844 Code(s): Z86.718 - PERSONAL HISTORY OF OTHER VENOUS THROMBOSIS AND EMBOLISM Status: Chronic Current Visit: No - Problem List Review Problem List Initiated/Reviewed/Updated: Yes - My Orders Last 24 Hours: My Active Orders 08/03/19 09:00 Folic Acid 1 mg PO DAILY Hypromellose [GenTeal Mild to Moderate Ophth Soln] 0 ml EYEBOTH DAILY Theophylline [Theophylline Anhydrous] 300 mg PO DAILY 08/03/19 16:00 methylPREDNISolone Sod Succ [Solu-MEDROL] 40 mg IV Q8H 08/03/19 21:00 Levofloxacin/Dextrose 5%-Water [Levaquin in D5W 750 MG/150 ML] 750 mg Premix Bag 1 bag IV Q48H 08/04/19 07:00 RT Ventilator Weaning [RC] DAILY 08/04/19 08:49 Chest w Cont [CT] Routine 08/04/19 09:00 Enoxaparin [Lovenox] 40 mg SUBCUT DAILY 08/05/19 05:00 BASIC METABOLIC PANEL,BMP [CHEM] Timed CBC W/O DIFF,HEMOGRAM [HEME] Timed (1) INR,PT,PROTHROMBIN TIME [COAG] Timed 08/05/19 05:11 CXR [Chest 1V Frontal] [CR] AM - Plan Plan:: ASSESSMENT AND PLAN - Acute on chronic systolic congestive heart failure-CT scan showed moderate left and large right pleural effusion as well as some pulmonary edema. Echocardiogram showed a further reduction in her left ventricular systolic function down to around 30% with a level of 40 to 45% just a few months ago. I suspect that heart failure is the main difficulty leading to her respiratory failure but this new information and the pneumonia is a minor component. -Ultrasound marking for right thoracentesis by Dr. Enrique -Furosemide x1 this morning and reassess later -Restart beta-gaye when able -Close monitoring of intake and output Left lower lobe pneumonia-complicated by acute respiratory failure with hypoxia and hypercapnia. Low-grade fever. Cultures negative so far. Probably contributing to her respiratory issues but not a major component at this time. -Antibiotic coverage with levofloxacin and Pip/Tazo -Repeat ABGs in the morning -Repeat chest x-ray in the morning -Scheduled and as needed leave albuterol nebulizers -Follow-up cultures -Supplement oxygen as needed COPD with acute exacerbation-secondary to pneumonia as discussed above. Wheezing has resolved. -Continue Solu-Medrol every 8 hours -Scheduled and as needed nebulizers -Additional management as above History of DVT-chronically anticoagulated. INR is now normal. -Hold warfarin -Repeat INR in the morning Maintenance issues - - DVT prophylaxis -mechanical. Initiate enoxaparin today - GI prophylaxis -PPI - Nutrition -nothing by mouth - Santana catheter -placed in the emergency room for strict intake and output monitoring in a critical patient, replaced 08/02 at the time of intubation and will remain in place for strict intake and output monitoring with acute on chronic congestive heart failure Disposition - I would anticipate discharge to the group home for subacute rehab after the hospital stay John Lott M.D.
[2019-08-04] MEDS ORDERED: Iopamidol 500 ML BOTTLE IV ONE (09:22)
[2019-08-04] MEDS ORDERED: Sodium Chloride 0.9% 10 ML Syringe FLUSH SCH (09:30)
[2019-08-04] MEDS ORDERED: Sodium Chloride 0.9% 75 ML IV SCH (09:30)
[2019-08-04] MEDS: Enoxaparin 40 MG/0.4 ML Syringe SUBCUT SCH (10:01)
[2019-08-04] MEDS: Morphine 2 MG/ML Syringe IVPUSH PRN ×3 (10:04→17:29)
--- NOTE | 2019-08-04 10:42 | CRLCT ---
INDICATION: Pneumonia COMPARISON: August 11, 2016 TECHNIQUE: : CT examination of the chest was performed with the uneventful intravenous administration of 100 cc of Isovue-300 while thin axial sections were obtained from above the apices of the lungs to the lung bases. Please note that all CT scans at this facility use dose modulation, iterative reconstruction, and/or weight-based dosing when appropriate to reduce radiation dose to as low as reasonably achievable. FINDINGS: : HEART and MEDIASTINUM: Heart is enlarged. There is no mediastinal hilar adenopathy mass. There is trace pericardial fluid. The heart enlargement is multi chamber. LUNGS: The lungs show several general abnormalities. At the bases adjacent to the effusions, are findings most compatible with relaxation/passive atelectasis. Regarding the aerated lung anterior to the effusions, there are areas of atelectasis and probably mild edema. There is also a separate focal area of consolidation that is not immediately adjacent to the effusion on the left. This is laterally in the left lower lobe on images number 43 through 56 and likely represents pneumonia. PLEURAL SPACES: There are moderate bilateral effusions, right slightly larger than left. These appear to be largely free-flowing. VISUALIZED UPPER ABDOMEN: There is amorphous radiopaque material in the right lobe of the liver. This appears to be within the region a collection that was present in this area on the 2017 study. However, the radiopaque material was not present previously. Clinical correlation regarding the exact nature of this material is advised OSSEOUS STRUCTURES: Age-appropriate appearance. No acute fracture or destructive process.Kyphosis TUBES and LINES: An endotracheal tube is normally located. IMPRESSION: 1. There are bilateral effusions, moderate, right greater than left. 2. Regarding the upper lobe aerated lungs, there is patchy atelectasis and probably mild edema. Regarding the bases, right greater than left, there is relaxation atelectasis. There is a focal area of consolidation laterally at the left base which is separate from the atelectasis and probably represents pneumonia. 3. Endotracheal tube properly located. 4. Radiopaque amorphous material within the right lobe of the liver. The exact nature of this is uncertain. Please review the comment regarding this 5. Discussed with Dr. John Lott at 10:40 a.m. on 08/04/[address] Please note that all CT scans at this facility use dose modulation, iterative reconstruction, and/or weight-based dosing when appropriate to reduce radiation dose to as low as reasonably achievable. Dictated by Zafar Cantu MD @ Aug 04 2019 10:30AM Signed by Dr. Zafar Cantu @ Aug 04 2019 10:42AM
[2019-08-04] MEDS ORDERED: Furosemide 40 MG/4 ML VIAL IVPUSH ONE (11:00)
[2019-08-04] MEDS ORDERED: Dextrose 5%-0.9% NaCl with KCl 1,000 ML IV SCH (11:00)
--- NOTE | 2019-08-04 18:26 | CRLCR ---
INDICATION: Status post thoracentesis. TECHNIQUE: Chest 1 view COMPARISON: Chest radiograph 08/04/2019. FINDINGS: Interval thoracentesis with resolution of previously seen small right pleural effusion. There is a new small left pleural effusion. Patchy opacity in the left lung base may represent atelectasis or infiltrate. No pneumothorax. Left apical pleural scarring. Mild cardiomegaly. Aortic calcification. Increased pulmonary vascularity. Endotracheal tube with tip 3.2 cm above the sushma. Degenerative changes of the shoulders. IMPRESSION: 1. Resolution of previously seen right pleural effusion. 2. New small left pleural effusion. 3. Patchy opacity in the left lung base may represent atelectasis or infiltrate. 4. Mild cardiomegaly with increased pulmonary vascularity. 5. ETT in satisfactory position. Dictated by Osiris Gonsales MD @ Aug 04 2019 6:20PM Signed by Dr. Osiris Gonsales @ Aug 04 2019 6:25PM
[2019-08-04] MEDS: Pantoprazole 40 MG Vial IV SCH (21:35)
[2019-08-05] MEDS: propofoL 100 ML IV SCH (02:11)
[2019-08-05] MEDS: Piperacillin/Tazobactam/Dext 3.375 GM in Premix Bag 1 BAG IV SCH (04:09)
[2019-08-05] MEDS: Levalbuterol HCl 1.25 MG/3 ML Neb NEB SCH ×4 (07:32→20:55)
[2019-08-05] MEDS: methylPREDNISolone Sodium Succinate 40 MG/1 ML SDV IV SCH (08:16)
[2019-08-05] MEDS: Hypromellose 0.3% Ophth Soln 15 ML Bottle EYEBOTH SCH (08:17)
[2019-08-05] MEDS: Enoxaparin 40 MG/0.4 ML Syringe SUBCUT SCH (08:18)
[2019-08-05] MEDS: Cholestyramine/Sucrose Powder 4 GM Packet PO SCH ×3 (08:20→20:54)
[2019-08-05] MEDS: Carvedilol 12.5 MG Tab PO SCH ×2 (08:21→20:54)
[2019-08-05] MEDS: Lactobacillus Rhamnosus GG (Probiotic) Cap PO SCH ×2 (08:21→20:55)
[2019-08-05] MEDS: Folic Acid 1 MG Tab PO SCH (08:21)
[2019-08-05] MEDS: Theophylline 300 MG Tab.ER PO SCH (08:22)
--- NOTE | 2019-08-05 08:54 | PCM.PN ---
- General Info Date of Service: 08/05/19 Subjective Update: No acute events overnight. No fevers. Good diuresis. 600 ml of straw colored fluid removed with right thoracentesis yesterday. No organisms seen on gram stain of fluid, culture pending. Extubated this morning, doing well so far post extubation. No abdominal pain. Up in the chair. Functional Status: Reports: Pain Controlled - Review of Systems General: Denies: Fever - Patient Data Vitals - Most Recent: Last Vital Signs Temp 37.0 C 08/05/19 08:00 Pulse 77 08/05/19 08:00 Resp 18 08/05/19 08:00 BP 131/61 08/05/19 08:00 Pulse Ox 100 08/05/19 08:00 Weight - Most Recent: 65.635 kg I&O - Last 24 Hours: Intake & Output 08/04/19 08/05/19 08/05/19 22:59 06:59 14:59 Intake Total 741 543 Output Total 500 200 Balance 241 343 Lab Results Last 24 Hours: Laboratory Results - last 24 hr 08/05/19 08/05/19 08/05/19 Range/Units 06:15 06:15 06:15 WBC 6.3 (4.5-11.0) K/uL RBC 4.21 (3.30-5.50) M/uL Hgb 11.1 L (12.0-15.0) g/dL Hct 36.2 (36.0-48.0) % MCV 86 (80-98) fL MCH 26 L (27-31) pg MCHC 31 L (32-36) % Plt Count 222 (150-400) K/uL PT 12.9 H (9.5-12.0) sec INR 1.21 H (0.80-1.20) Sodium 143 (140-148) mmol/L Potassium 3.2 L (3.6-5.2) mmol/L Chloride 108 (100-108) mmol/L Carbon Dioxide 25 (21-32) mmol/L Anion Gap 13.2 (5.0-14.0) mmol/L BUN 26 H (7-18) mg/dL Creatinine 0.8 (0.6-1.0) mg/dL Est Cr Clr Drug Dosing 46.34 mL/min Estimated GFR (MDRD) > 60 (>60) Glucose 114 H (74-106) mg/dL Calcium 8.6 (8.5-10.1) mg/dL Matias Results Last 24 Hours: Microbiology 08/01/19 19:40 Aerobic Blood Culture - Preliminary Blood - Venous - Iv Start NO GROWTH AFTER 3 DAYS Anaerobic Blood Culture - Preliminary NO GROWTH AFTER 3 DAYS 08/04/19 17:41 Gram Stain - Final Thoracentesis Fluid - Right 08/01/19 21:11 Gram Stain - Final Endotrachael Aspirate Respiratory Culture - Final NORMAL RESPIRATORY SYLVIA 2 DAYS Med Orders - Current: Current Medications Acetaminophen (Tylenol) 650 mg PO Q4H PRN PRN Reason: Pain (Mild 1-3)/fever Acetaminophen (Tylenol) 650 mg RECTAL Q4H PRN PRN Reason: Mild pain/fever Artificial Tears (Genteal Mild To Moderate Ophth Soln) 0 ml EYEBOTH DAILY [facility] Last Admin: 08/05/19 08:17 Dose: 2 drop Carvedilol (Coreg) 12.5 mg PO BID [facility] Last Admin: 08/05/19 08:21 Dose: Not Given Cholestyramine Resin (Cholestyramine Packet) 4 gm PO TID [facility] Last Admin: 08/05/19 08:20 Dose: Not Given Clonazepam (Klonopin) 0.5 mg PO BEDTIME PRN PRN Reason: Anxiety Last Admin: 08/02/19 20:32 Dose: 0.5 mg Enoxaparin Sodium (Lovenox) 40 mg SUBCUT DAILY [facility] Last Admin: 08/05/19 08:18 Dose: 40 mg Folic Acid (Folic Acid) 1 mg PO DAILY [facility] Last Admin: 08/05/19 08:21 Dose: Not Given Levofloxacin/Dextrose 750 mg/ (Premix) 150 mls @ 100 mls/hr IV Q48H [facility] Last Admin: 08/03/19 20:25 Dose: 100 mls/hr Potassium Chloride 20 meq/Lidocaine HCl 2 ml/ Sodium Chloride 112 mls @ 56 mls/ hr IV Q2H [facility] Stop: 08/05/19 13:59 Lactobacillus Rhamnosus (Culturelle) 1 cap PO BID [facility] Last Admin: 08/05/19 08:21 Dose: Not Given Levalbuterol HCl (Xopenex) 1.25 mg NEB QIDRT [facility] Last Admin: 08/05/19 07:32 Dose: 1.25 mg Levalbuterol HCl (Xopenex) 1.25 mg NEB Q4H PRN PRN Reason: shortness of breath/wheezing Loperamide HCl (Imodium) 2 mg PO QID PRN PRN Reason: DIARRHEA Lorazepam (Ativan) 0.5 mg IVPUSH Q4H PRN PRN Reason: Anxiety Morphine Sulfate (Morphine) 2 mg IVPUSH Q2H PRN PRN Reason: Pain (severe 7-10) Last Admin: 08/04/19 17:29 Dose: 2 mg Nortriptyline HCl (Nortriptyline) 50 mg PO BEDTIME [facility] Last Admin: 08/02/19 20:31 Dose: 50 mg Ondansetron HCl (Zofran Odt) 4 mg PO Q6H PRN PRN Reason: Nausea able to take PO Ondansetron HCl (Zofran) 4 mg IV Q6H PRN PRN Reason: Nausea/Vomiting Pantoprazole Sodium (Protonix) 40 mg PO DAILY [facility] Theophylline (Theophylline Anhydrous) 300 mg PO DAILY [facility] Last Admin: 08/05/19 08:22 Dose: Not Given Discontinued Medications Albuterol (Proventil Neb Soln) 2.5 mg NEB Q4H PRN PRN Reason: Shortness Of Breath/wheezing Albuterol/Ipratropium (Duoneb 3.0-0.5 Mg/3 Ml) Confirm Administered Dose 3 ml .ROUTE .STK-MED ONE Stop: 08/01/19 19:47 Last Admin: 08/01/19 21:39 Dose: Not Given Albuterol/Ipratropium (Duoneb 3.0-0.5 Mg/3 Ml) 3 ml NEB ONETIME ONE Stop: 08/01/19 19:48 Last Admin: 08/01/19 21:50 Dose: 3 ml Albuterol/Ipratropium (Duoneb 3.0-0.5 Mg/3 Ml) 3 ml NEB QIDRT [facility] Last Admin: 08/02/19 20:36 Dose: 3 ml Furosemide (Lasix) 40 mg IVPUSH ONETIME ONE Stop: 08/04/19 11:01 Last Admin: 08/04/19 11:05 Dose: 40 mg Heparin Sodium (Porcine) (Heparin Sodium) Confirm Administered Dose 5,000 units .ROUTE .STK-MED ONE Stop: 08/01/19 20:13 Last Admin: 08/01/19 21:39 Dose: Not Given Heparin Sodium (Porcine) (Heparin Sodium) Confirm Administered Dose 5,000 units .ROUTE .[facility] ONE Stop: 08/01/19 20:15 Last Admin: 08/01/19 21:39 Dose: Not Given Heparin Sodium (Porcine) (Heparin Sodium) Confirm Administered Dose 5,000 units .ROUTE .[facility] ONE Stop: 08/02/19 22:16 Last Admin: 08/03/19 00:35 Dose: Not Given Sodium Chloride (Normal Saline) Confirm Administered Dose 500 mls @ as directed .ROUTE .[facility] ONE Stop: 08/01/19 20:13 Last Admin: 08/01/19 21:40 Dose: Not Given Levofloxacin/Dextrose 750 mg/ (Premix) 150 mls @ 100 mls/hr IV ONETIME ONE Stop: 08/01/19 22:13 Last Admin: 08/01/19 21:00 Dose: 100 mls/hr Vancomycin HCl 1 gm/ Sodium (Chloride) 250 mls @ 150 mls/hr IV ONETIME ONE Stop: 08/01/19 22:22 Last Admin: 08/01/19 23:26 Dose: Not Given Propofol (Diprivan 100 Ml) Confirm Administered Dose 100 mls @ as directed .ROUTE .[facility] ONE Stop: 08/01/19 21:24 Last Admin: 08/01/19 23:04 Dose: Not Given Potassium Chloride/Dextrose/Sod Cl (D5 Ns With 20 Meq Kcl) 1,000 mls @ 100 mls/ hr IV ASDIRECTED [facility] Last Admin: 08/02/19 20:17 Dose: 100 mls/hr Heparin Sodium (Porcine) 5,000 (units/ Sodium Chloride) 501 mls @ 1 mls/hr IV ASDIRECTED [facility] Last Admin: 08/02/19 07:45 Dose: 1 mls/hr Piperacillin Sod/Tazobactam (Sod 3.375 gm/ Sodium Chloride) 50 mls @ 100 mls/ hr IV Q6H [facility] Last Admin: 08/02/19 03:52 Dose: 100 mls/hr Propofol (Diprivan 100 Ml) 100 mls @ 2.041 mls/hr IV TITRATE [facility]; Protocol Last Titration: 08/02/19 09:38 Dose: 0 mcg/kg/min, 0 mls/hr Piperacillin/Tazobactam/ (Dextrose 3.375 gm/ Premix) 50 mls @ 100 mls/hr IV Q6H [facility] Last Admin: 08/05/19 04:09 Dose: 100 mls/hr Propofol (Diprivan 100 Ml) 100 mls @ 1.969 mls/hr IV TITRATE [facility]; Protocol Last Titration: 08/05/19 06:50 Dose: 22 mcg/kg/min, 8.664 mls/hr Heparin Sodium (Porcine) 5,000 (units/ Sodium Chloride) 501 mls @ 1 mls/hr IV ASDIRECTED [facility] Last Admin: 08/02/19 22:30 Dose: 1 mls/hr Potassium Chloride/Dextrose/Sod Cl (D5 Ns With 20 Meq Kcl) 1,000 mls @ 75 mls/ hr IV ASDIRECTED [facility] Last Admin: 08/04/19 01:44 Dose: 75 mls/hr Phytonadione 1 mg/ Sodium (Chloride) 50.5 mls @ 100 mls/hr IV ONETIME ONE Stop: 08/03/19 10:30 Last Admin: 08/03/19 09:48 Dose: 100 mls/hr Sodium Chloride (Normal Saline) 500 mls @ 500 mls/hr IV .[facility] ONE Stop: 08/03/19 18:50 Last Admin: 08/03/19 18:02 Dose: 500 mls/hr Sodium Chloride (Normal Saline) 75 mls @ 3 mls/sec IV ASDIRECTED [facility] Stop: 08/04/19 09:31 Potassium Chloride/Dextrose/Sod Cl (D5 Ns With 20 Meq Kcl) 1,000 mls @ 25 mls/ hr IV ASDIRECTED [facility] Last Admin: 08/04/19 22:00 Dose: 25 mls/hr Iopamidol (Isovue-300 (61%)) 100 ml IV ONETIME ONE Stop: 08/04/19 09:23 Last Admin: 08/04/19 10:37 Dose: 100 ml Levalbuterol HCl (Xopenex) Confirm Administered Dose 1.25 mg .ROUTE .STK-MED ONE Stop: 08/02/19 21:33 Last Admin: 08/02/19 23:11 Dose: Not Given Levalbuterol HCl (Xopenex) 1.25 mg NEB ONETIME ONE Stop: 08/02/19 21:21 Last Admin: 08/02/19 21:15 Dose: 1.25 mg Lorazepam (Ativan) 1 mg IVPUSH ONETIME ONE Stop: 08/02/19 21:11 Last Admin: 08/02/19 21:07 Dose: 1 mg Methylprednisolone Sodium Succinate (Solu-Medrol) 125 mg IVPUSH ONETIME ONE Stop: 08/01/19 19:53 Last Admin: 08/01/19 19:42 Dose: 125 mg Methylprednisolone Sodium Succinate (Solu-Medrol) 62.5 mg IVPUSH Q6H [facility] Last Admin: 08/02/19 08:27 Dose: 62.5 mg Methylprednisolone Sodium Succinate (Solu-Medrol) 62.5 mg IVPUSH Q8H [facility] Last Admin: 08/03/19 08:21 Dose: 62.5 mg Methylprednisolone Sodium Succinate (Solu-Medrol) 40 mg IV Q8H [facility] Last Admin: 08/05/19 08:16 Dose: 40 mg Midazolam HCl (Versed 1 Mg/Ml) Confirm Administered Dose 4 mg .ROUTE .STK-MED ONE Stop: 08/01/19 20:19 Last Admin: 08/01/19 21:42 Dose: Not Given Midazolam HCl (Versed 1 Mg/Ml) Confirm Administered Dose 5 mg .ROUTE .STK-MED ONE Stop: 08/01/19 20:44 Last Admin: 08/01/19 21:43 Dose: Not Given Midazolam HCl (Versed 1 Mg/Ml) 4 mg IVPUSH ONETIME ONE Stop: 08/01/19 21:43 Last Admin: 08/01/19 20:25 Dose: 4 mg Midazolam HCl (Versed 1 Mg/Ml) 3 mg IVPUSH ONETIME ONE Stop: 08/01/19 20:41 Last Admin: 08/01/19 20:40 Dose: 3 mg Pantoprazole Sodium (Protonix Iv) 40 mg IV Q24H [facility] Last Admin: 08/04/19 21:35 Dose: 40 mg Propofol (Diprivan 20 Ml) Confirm Administered Dose 200 mg .ROUTE .STK-MED ONE Stop: 08/01/19 19:59 Propofol (Diprivan 20 Ml) Confirm Administered Dose 200 mg .ROUTE .STK-MED ONE Stop: 08/02/19 22:47 Sodium Chloride (Saline Flush) 10 ml FLUSH ONETIME [facility] Stop: 08/04/19 09:31 Succinylcholine Chloride (Quelicin) Confirm Administered Dose 200 mg .ROUTE .STK -MED ONE Stop: 08/01/19 19:59 Succinylcholine Chloride (Quelicin) Confirm Administered Dose 200 mg .ROUTE .STK -MED ONE Stop: 08/01/19 20:01 Succinylcholine Chloride (Quelicin) Confirm Administered Dose 200 mg .ROUTE .STK -MED ONE Stop: 08/02/19 22:47 - Exam Quality Assessment: Supplemental Oxygen, Urine Catheter, Restraints General: Alert, Cooperative, No Acute Distress HEENT: Pupils Equal Lungs: Normal Respiratory Effort, Rales (mild diffuse anteriorly). No: Wheezing Cardiovascular: Regular Rate, Regular Rhythm GI/Abdominal Exam: Normal Bowel Sounds, Soft, No Distention Extremities: No Pedal Edema. No: Increased Warmth Skin: Warm, Dry Psy/Mental Status: Alert, Normal Affect Sepsis Event Note - Evaluation Sepsis Screening Result: No Definite Risk - Focused Exam Vital Signs: Vital Signs Temp Pulse Resp BP BP Pulse Ox Pulse Ox 08/05/19 08:00 37.0 C 77 18 131/61 100 08/05/19 07:32 72 98 08/05/19 07:00 78 16 159/74 H 97 08/05/19 06:00 72 16 131/60 98 08/05/19 04:56 70 16 120/55 L 97 08/05/19 03:50 36.0 C 70 16 119/54 L 98 08/05/19 03:00 67 16 121/57 L 102/53 L 98 08/05/19 01:58 76 16 119/61 98 08/05/19 01:00 73 16 109/57 L 97 08/05/19 00:00 36.1 C 74 16 106/53 L 08/04/19 23:00 76 16 140/65 98 08/04/19 22:00 81 16 113/62 99 Date Exam was Performed: 08/05/19 Time Exam was Performed: 13:26 - Problem List & Annotations (1) CHF (congestive heart failure) SNOMED Code(s): 84471488 Code(s): I50.9 - HEART FAILURE, UNSPECIFIED Status: Chronic Current Visit : Yes Qualifiers: Heart failure type: systolic Heart failure chronicity: acute on chronic Qualified Code(s): I50.23 - Acute on chronic systolic (congestive) heart failure (2) Pneumonia SNOMED Code(s): 529554719 Code(s): J18.9 - PNEUMONIA, UNSPECIFIED ORGANISM Status: Acute Current Visit: Yes Qualifiers: Pneumonia type: due to unspecified organism Laterality: left Lung location: lower lobe of lung Qualified Code(s): J18.9 - Pneumonia, unspecified organism (3) Acute exacerbation of chronic obstructive pulmonary disease SNOMED Code(s): 382731480 Code(s): J44.1 - CHRONIC OBSTRUCTIVE PULMONARY DISEASE W (ACUTE) EXACERBATION Status: Acute Current Visit: Yes (4) Acute respiratory failure with hypoxia and hypercapnia SNOMED Code(s): 799611657 Code(s): J96.01 - ACUTE RESPIRATORY FAILURE WITH HYPOXIA; J96.02 - ACUTE RESPIRATORY FAILURE WITH HYPERCAPNIA Status: Acute Current Visit: Yes (5) Hx of deep venous thrombosis SNOMED Code(s): 283027741 Code(s): Z86.718 - PERSONAL HISTORY OF OTHER VENOUS THROMBOSIS AND EMBOLISM Status: Chronic Current Visit: No - Problem List Review Problem List Initiated/Reviewed/Updated: Yes - My Orders Last 24 Hours: My Active Orders 08/04/19 09:00 Enoxaparin [Lovenox] 40 mg SUBCUT DAILY 08/04/19 10:14 Echo Comp wo Cont [US] Routine 08/04/19 13:04 US Guidance Thoracentesis NC [US] Routine 08/04/19 17:41 CULTURE BODY FLUID + SMEAR [RM] Routine 08/04/19 22:30 Insert Santana Catheter [Insert Urinary Catheter] [OM.PC] Q24H 08/05/19 08:51 Up With Assistance [RC] ASDIRECTED 08/05/19 08:53 Convert IV to Saline Lock [OM.PC] Routine 08/05/19 10:00 Potassium Chloride 20 meq Lidocaine 1% [Xylocaine 1%] 2 ml Sodium Chloride 0.9 % [Normal Saline] 100 ml IV Q2H 08/06/19 05:00 BASIC METABOLIC PANEL,BMP [CHEM] Timed CBC W/O DIFF,HEMOGRAM [HEME] Timed (1) 08/06/19 09:00 Pantoprazole [ProTONIX] 40 mg PO DAILY - Plan Plan:: ASSESSMENT AND PLAN - Acute on chronic systolic congestive heart failure-CT scan showed moderate left and large right pleural effusion as well as some pulmonary edema. Echocardiogram showed a further reduction in her left ventricular systolic function down to around 30% with a level of 40 to 45% just a few months ago. Right thoracentesis completed yesterday. -Restart beta-gaye today -furosemide x1 today -Close monitoring of intake and output Left lower lobe pneumonia-complicated by acute respiratory failure with hypoxia and hypercapnia. Low-grade fever. Cultures negative so far. Probably contributing to her respiratory issues but not a major component at this time. -Antibiotic coverage with levofloxacin -Scheduled and as needed leave albuterol nebulizers -Follow-up cultures -Supplement oxygen as needed COPD with acute exacerbation-secondary to pneumonia as discussed above. Wheezing has resolved. -discontinue steroids -Scheduled and as needed nebulizers -Additional management as above History of DVT-chronically anticoagulated. INR is now normal. -restart warfarin -Repeat INR in the morning Maintenance issues - - DVT prophylaxis -mechanical and enoxaparin - GI prophylaxis -PPI - Nutrition -start full liquids - Santana catheter -placed in the emergency room for strict intake and output monitoring in a critical patient, replaced 08/02 at the time of intubation and will remain in place for strict intake and output monitoring with acute on chronic congestive heart failure Disposition - I would anticipate discharge to the long term for subacute rehab after the hospital stay John Lott M.D.
[2019-08-05] MEDS: Potassium Chloride 20 MEQ, Lidocaine 1% 2 ML in Sodium Chloride 0.9% 100 ML IV SCH ×2 (10:32→12:47)
[2019-08-05] MEDS ORDERED: Furosemide 20 MG/2 ML VIAL IVPUSH ONE (13:45)
[2019-08-05] MEDS: Warfarin 5 MG Tab PO SCH (13:48)
[2019-08-05] MEDS: Nortriptyline 25 MG Cap PO SCH (20:55)
[2019-08-05] MEDS: Levofloxacin/Dextrose 5%-Water 750 MG in Premix Bag 1 BAG IV SCH (20:55)
[2019-08-05] MEDS: Morphine 2 MG/ML Syringe IVPUSH PRN ×2 (20:57→23:27)
[2019-08-06] MEDS: LORazepam 2 MG/ML SDV IVPUSH PRN (02:20)
[2019-08-06] MEDS: Levalbuterol HCl 1.25 MG/3 ML Neb NEB SCH ×4 (06:59→20:29)
[2019-08-06] MEDS: Cholestyramine/Sucrose Powder 4 GM Packet PO SCH ×3 (08:33→20:19)
[2019-08-06] MEDS: Pantoprazole 40 MG Tab.CR PO SCH (08:33)
[2019-08-06] MEDS: Carvedilol 12.5 MG Tab PO SCH ×2 (08:33→20:19)
[2019-08-06] MEDS: Lactobacillus Rhamnosus GG (Probiotic) Cap PO SCH ×2 (08:34→20:19)
[2019-08-06] MEDS: Folic Acid 1 MG Tab PO SCH (08:34)
[2019-08-06] MEDS: Theophylline 300 MG Tab.ER PO SCH (08:35)
[2019-08-06] MEDS: Enoxaparin 40 MG/0.4 ML Syringe SUBCUT SCH (08:35)
[2019-08-06] MEDS: Hypromellose 0.3% Ophth Soln 15 ML Bottle EYEBOTH SCH (08:35)
--- NOTE | 2019-08-06 10:58 | PCM.PN ---
- General Info Date of Service: 08/06/19 Subjective Update: There were no acute events overnight. Patient had a good day yesterday after extubation. She does continue to require supplemental oxygen at 4 L/min. She feels very weak. She does feel short of breath. She has a loose cough. She has not had any fevers. Respiratory culture and thoracentesis culture have been negative. Appetite is starting to improve. She is having bowel movements. Functional Status: Reports: Pain Controlled, Tolerating Diet - Review of Systems General: Reports: Weakness Pulmonary: Reports: Shortness of Breath, Cough - Patient Data Vitals - Most Recent: Last Vital Signs Temp 36.3 C 08/06/19 04:00 Pulse 70 08/06/19 10:00 Resp 15 08/06/19 07:27 BP 109/57 L 08/06/19 10:00 Pulse Ox 99 08/06/19 07:27 Weight - Most Recent: 65.635 kg I&O - Last 24 Hours: Intake & Output 08/05/19 08/06/19 08/06/19 22:59 06:59 14:59 Intake Total 1986 399 Output Total 1500 350 Balance 486 49 Lab Results Last 24 Hours: Laboratory Results - last 24 hr 08/06/19 08/06/19 08/06/19 Range/Units 04:40 04:40 04:40 WBC 8.6 (4.5-11.0) K/uL RBC 3.95 (3.30-5.50) M/uL Hgb 10.6 L (12.0-15.0) g/dL Hct 34.9 L (36.0-48.0) % MCV 88 (80-98) fL MCH 27 (27-31) pg MCHC 30 L (32-36) % Plt Count 187 (150-400) K/uL PT 13.9 H (9.5-12.0) sec INR 1.31 H (0.80-1.20) Sodium 144 (140-148) mmol/L Potassium 3.7 (3.6-5.2) mmol/L Chloride 109 H (100-108) mmol/L Carbon Dioxide 28 (21-32) mmol/L Anion Gap 10.7 (5.0-14.0) mmol/L BUN 26 H (7-18) mg/dL Creatinine 0.6 (0.6-1.0) mg/dL Est Cr Clr Drug Dosing 61.79 mL/min Estimated GFR (MDRD) > 60 (>60) Glucose 88 (74-106) mg/dL Calcium 8.0 L (8.5-10.1) mg/dL Matias Results Last 24 Hours: Microbiology 08/04/19 17:41 Gram Stain - Final Thoracentesis Fluid - Right Body Fluid Culture - Preliminary NO GROWTH AFTER 1 DAY 08/01/19 19:40 Aerobic Blood Culture - Preliminary Blood - Venous - Iv Start NO GROWTH AFTER 4 DAYS Anaerobic Blood Culture - Preliminary NO GROWTH AFTER 4 DAYS Med Orders - Current: Current Medications Acetaminophen (Tylenol) 650 mg PO Q4H PRN PRN Reason: Pain (Mild 1-3)/fever Acetaminophen (Tylenol) 650 mg RECTAL Q4H PRN PRN Reason: Mild pain/fever Artificial Tears (Genteal Mild To Moderate Ophth Soln) 0 ml EYEBOTH DAILY [facility] Last Admin: 08/06/19 08:35 Dose: 2 drop Carvedilol (Coreg) 12.5 mg PO BID [facility] Last Admin: 08/06/19 08:33 Dose: 12.5 mg Cholestyramine Resin (Cholestyramine Packet) 4 gm PO TID [facility] Last Admin: 08/06/19 08:33 Dose: 4 gm Clonazepam (Klonopin) 0.5 mg PO BEDTIME PRN PRN Reason: Anxiety Last Admin: 08/02/19 20:32 Dose: 0.5 mg Enoxaparin Sodium (Lovenox) 40 mg SUBCUT DAILY [facility] Last Admin: 08/06/19 08:35 Dose: 40 mg Folic Acid (Folic Acid) 1 mg PO DAILY [facility] Last Admin: 08/06/19 08:34 Dose: 1 mg Levofloxacin/Dextrose 750 mg/ (Premix) 150 mls @ 100 mls/hr IV Q48H [facility] Last Admin: 08/05/19 20:55 Dose: 100 mls/hr Lactobacillus Rhamnosus (Culturelle) 1 cap PO BID [facility] Last Admin: 08/06/19 08:34 Dose: 1 cap Levalbuterol HCl (Xopenex) 1.25 mg NEB QIDRT [facility] Last Admin: 08/06/19 06:59 Dose: 1.25 mg Levalbuterol HCl (Xopenex) 1.25 mg NEB Q4H PRN PRN Reason: shortness of breath/wheezing Loperamide HCl (Imodium) 2 mg PO QID PRN PRN Reason: DIARRHEA Lorazepam (Ativan) 0.5 mg IVPUSH Q4H PRN PRN Reason: Anxiety Last Admin: 08/06/19 02:20 Dose: 0.5 mg Morphine Sulfate (Morphine) 2 mg IVPUSH Q2H PRN PRN Reason: Pain (severe 7-10) Last Admin: 08/05/19 23:27 Dose: 2 mg Nortriptyline HCl (Nortriptyline) 50 mg PO BEDTIME [facility] Last Admin: 08/05/19 20:55 Dose: 50 mg Ondansetron HCl (Zofran Odt) 4 mg PO Q6H PRN PRN Reason: Nausea able to take PO Ondansetron HCl (Zofran) 4 mg IV Q6H PRN PRN Reason: Nausea/Vomiting Pantoprazole Sodium (Protonix) 40 mg PO DAILY@0730 [facility] Last Admin: 08/06/19 08:33 Dose: 40 mg Theophylline (Theophylline Anhydrous) 300 mg PO DAILY [facility] Last Admin: 08/06/19 08:35 Dose: 300 mg Warfarin Sodium (Coumadin) 5 mg PO DAILY@1300 [facility] Last Admin: 08/05/19 13:48 Dose: 5 mg Discontinued Medications Albuterol (Proventil Neb Soln) 2.5 mg NEB Q4H PRN PRN Reason: Shortness Of Breath/wheezing Albuterol/Ipratropium (Duoneb 3.0-0.5 Mg/3 Ml) Confirm Administered Dose 3 ml .ROUTE .STK-MED ONE Stop: 08/01/19 19:47 Last Admin: 08/01/19 21:39 Dose: Not Given Albuterol/Ipratropium (Duoneb 3.0-0.5 Mg/3 Ml) 3 ml NEB ONETIME ONE Stop: 08/01/19 19:48 Last Admin: 08/01/19 21:50 Dose: 3 ml Albuterol/Ipratropium (Duoneb 3.0-0.5 Mg/3 Ml) 3 ml NEB QIDRT [facility] Last Admin: 08/02/19 20:36 Dose: 3 ml Furosemide (Lasix) 40 mg IVPUSH ONETIME ONE Stop: 08/04/19 11:01 Last Admin: 08/04/19 11:05 Dose: 40 mg Furosemide (Lasix) 20 mg IVPUSH ONETIME ONE Stop: 08/05/19 13:46 Last Admin: 08/05/19 13:47 Dose: 20 mg Heparin Sodium (Porcine) (Heparin Sodium) Confirm Administered Dose 5,000 units .ROUTE .[facility] ONE Stop: 08/01/19 20:13 Last Admin: 08/01/19 21:39 Dose: Not Given Heparin Sodium (Porcine) (Heparin Sodium) Confirm Administered Dose 5,000 units .ROUTE .[facility] ONE Stop: 08/01/19 20:15 Last Admin: 08/01/19 21:39 Dose: Not Given Heparin Sodium (Porcine) (Heparin Sodium) Confirm Administered Dose 5,000 units .ROUTE .[facility] ONE Stop: 08/02/19 22:16 Last Admin: 08/03/19 00:35 Dose: Not Given Sodium Chloride (Normal Saline) Confirm Administered Dose 500 mls @ as directed .ROUTE .[facility] ONE Stop: 08/01/19 20:13 Last Admin: 08/01/19 21:40 Dose: Not Given Levofloxacin/Dextrose 750 mg/ (Premix) 150 mls @ 100 mls/hr IV ONETIME ONE Stop: 08/01/19 22:13 Last Admin: 08/01/19 21:00 Dose: 100 mls/hr Vancomycin HCl 1 gm/ Sodium (Chloride) 250 mls @ 150 mls/hr IV ONETIME ONE Stop: 08/01/19 22:22 Last Admin: 08/01/19 23:26 Dose: Not Given Propofol (Diprivan 100 Ml) Confirm Administered Dose 100 mls @ as directed .ROUTE .[facility] ONE Stop: 08/01/19 21:24 Last Admin: 08/01/19 23:04 Dose: Not Given Potassium Chloride/Dextrose/Sod Cl (D5 Ns With 20 Meq Kcl) 1,000 mls @ 100 mls/ hr IV ASDIRECTED [facility] Last Admin: 08/02/19 20:17 Dose: 100 mls/hr Heparin Sodium (Porcine) 5,000 (units/ Sodium Chloride) 501 mls @ 1 mls/hr IV ASDIRECTED [facility] Last Admin: 08/02/19 07:45 Dose: 1 mls/hr Piperacillin Sod/Tazobactam (Sod 3.375 gm/ Sodium Chloride) 50 mls @ 100 mls/ hr IV Q6H [facility] Last Admin: 08/02/19 03:52 Dose: 100 mls/hr Propofol (Diprivan 100 Ml) 100 mls @ 2.041 mls/hr IV TITRATE [facility]; Protocol Last Titration: 08/02/19 09:38 Dose: 0 mcg/kg/min, 0 mls/hr Piperacillin/Tazobactam/ (Dextrose 3.375 gm/ Premix) 50 mls @ 100 mls/hr IV Q6H [facility] Last Admin: 08/05/19 04:09 Dose: 100 mls/hr Propofol (Diprivan 100 Ml) 100 mls @ 1.969 mls/hr IV TITRATE [facility]; Protocol Last Titration: 08/05/19 06:50 Dose: 22 mcg/kg/min, 8.664 mls/hr Heparin Sodium (Porcine) 5,000 (units/ Sodium Chloride) 501 mls @ 1 mls/hr IV ASDIRECTED [facility] Last Admin: 08/02/19 22:30 Dose: 1 mls/hr Potassium Chloride/Dextrose/Sod Cl (D5 Ns With 20 Meq Kcl) 1,000 mls @ 75 mls/ hr IV ASDIRECTED [facility] Last Admin: 08/04/19 01:44 Dose: 75 mls/hr Phytonadione 1 mg/ Sodium (Chloride) 50.5 mls @ 100 mls/hr IV ONETIME ONE Stop: 08/03/19 10:30 Last Admin: 08/03/19 09:48 Dose: 100 mls/hr Sodium Chloride (Normal Saline) 500 mls @ 500 mls/hr IV .[facility] ONE Stop: 08/03/19 18:50 Last Admin: 08/03/19 18:02 Dose: 500 mls/hr Sodium Chloride (Normal Saline) 75 mls @ 3 mls/sec IV ASDIRECTED [facility] Stop: 08/04/19 09:31 Potassium Chloride/Dextrose/Sod Cl (D5 Ns With 20 Meq Kcl) 1,000 mls @ 25 mls/ hr IV ASDIRECTED [facility] Last Admin: 08/04/19 22:00 Dose: 25 mls/hr Potassium Chloride 20 meq/Lidocaine HCl 2 ml/ Sodium Chloride 112 mls @ 56 mls/ hr IV Q2H [facility] Stop: 08/05/19 13:59 Last Admin: 08/05/19 12:47 Dose: 56 mls/hr Iopamidol (Isovue-300 (61%)) 100 ml IV ONETIME ONE Stop: 08/04/19 09:23 Last Admin: 08/04/19 10:37 Dose: 100 ml Levalbuterol HCl (Xopenex) Confirm Administered Dose 1.25 mg .ROUTE .STK-MED ONE Stop: 08/02/19 21:33 Last Admin: 08/02/19 23:11 Dose: Not Given Levalbuterol HCl (Xopenex) 1.25 mg NEB ONETIME ONE Stop: 08/02/19 21:21 Last Admin: 08/02/19 21:15 Dose: 1.25 mg Lorazepam (Ativan) 1 mg IVPUSH ONETIME ONE Stop: 08/02/19 21:11 Last Admin: 08/02/19 21:07 Dose: 1 mg Methylprednisolone Sodium Succinate (Solu-Medrol) 125 mg IVPUSH ONETIME ONE Stop: 08/01/19 19:53 Last Admin: 08/01/19 19:42 Dose: 125 mg Methylprednisolone Sodium Succinate (Solu-Medrol) 62.5 mg IVPUSH Q6H [facility] Last Admin: 08/02/19 08:27 Dose: 62.5 mg Methylprednisolone Sodium Succinate (Solu-Medrol) 62.5 mg IVPUSH Q8H [facility] Last Admin: 08/03/19 08:21 Dose: 62.5 mg Methylprednisolone Sodium Succinate (Solu-Medrol) 40 mg IV Q8H [facility] Last Admin: 08/05/19 08:16 Dose: 40 mg Midazolam HCl (Versed 1 Mg/Ml) Confirm Administered Dose 4 mg .ROUTE .STK-MED ONE Stop: 08/01/19 20:19 Last Admin: 08/01/19 21:42 Dose: Not Given Midazolam HCl (Versed 1 Mg/Ml) Confirm Administered Dose 5 mg .ROUTE .STK-MED ONE Stop: 08/01/19 20:44 Last Admin: 08/01/19 21:43 Dose: Not Given Midazolam HCl (Versed 1 Mg/Ml) 4 mg IVPUSH ONETIME ONE Stop: 08/01/19 21:43 Last Admin: 08/01/19 20:25 Dose: 4 mg Midazolam HCl (Versed 1 Mg/Ml) 3 mg IVPUSH ONETIME ONE Stop: 08/01/19 20:41 Last Admin: 08/01/19 20:40 Dose: 3 mg Pantoprazole Sodium (Protonix Iv) 40 mg IV Q24H [facility] Last Admin: 08/04/19 21:35 Dose: 40 mg Propofol (Diprivan 20 Ml) Confirm Administered Dose 200 mg .ROUTE .STK-MED ONE Stop: 08/01/19 19:59 Propofol (Diprivan 20 Ml) Confirm Administered Dose 200 mg .ROUTE .STK-MED ONE Stop: 08/02/19 22:47 Sodium Chloride (Saline Flush) 10 ml FLUSH ONETIME [facility] Stop: 08/04/19 09:31 Succinylcholine Chloride (Quelicin) Confirm Administered Dose 200 mg .ROUTE .STK -MED ONE Stop: 08/01/19 19:59 Succinylcholine Chloride (Quelicin) Confirm Administered Dose 200 mg .ROUTE .STK -MED ONE Stop: 08/01/19 20:01 Succinylcholine Chloride (Quelicin) Confirm Administered Dose 200 mg .ROUTE .STK -MED ONE Stop: 08/02/19 22:47 - Exam Quality Assessment: Supplemental Oxygen General: Alert, Oriented, Cooperative, No Acute Distress Neck: Supple, JVD Lungs: Normal Respiratory Effort, Decreased Breath Sounds (left lung base), Crackles (left lung base). No: Wheezing Cardiovascular: Regular Rate, Regular Rhythm GI/Abdominal Exam: Soft, No Distention Extremities: No Pedal Edema. No: Increased Warmth Skin: Warm, Dry Psy/Mental Status: Alert, Normal Affect Sepsis Event Note - Evaluation Sepsis Screening Result: No Definite Risk - Focused Exam Vital Signs: Vital Signs Temp Pulse Pulse Resp BP BP Pulse Ox 08/06/19 10:00 70 109/57 L 08/06/19 08:33 77 101/50 L 08/06/19 07:27 75 15 99/55 L 99 08/06/19 06:59 73 08/06/19 06:00 71 17 99/55 L 97 08/06/19 04:00 36.3 C 75 21 H 96/55 L 97 08/06/19 02:00 66 18 106/46 L 97 08/06/19 00:00 36.8 C 68 16 101/58 L 95 Date Exam was Performed: 08/06/19 Time Exam was Performed: 12:12 - Problem List & Annotations (1) CHF (congestive heart failure) SNOMED Code(s): 01766736 Code(s): I50.9 - HEART FAILURE, UNSPECIFIED Status: Chronic Current Visit : Yes Qualifiers: Heart failure type: systolic Heart failure chronicity: acute on chronic Qualified Code(s): I50.23 - Acute on chronic systolic (congestive) heart failure (2) Pneumonia SNOMED Code(s): 627695993 Code(s): J18.9 - PNEUMONIA, UNSPECIFIED ORGANISM Status: Acute Current Visit: Yes Qualifiers: Pneumonia type: due to unspecified organism Laterality: left Lung location: lower lobe of lung Qualified Code(s): J18.9 - Pneumonia, unspecified organism (3) Acute exacerbation of chronic obstructive pulmonary disease SNOMED Code(s): 259785469 Code(s): J44.1 - CHRONIC OBSTRUCTIVE PULMONARY DISEASE W (ACUTE) EXACERBATION Status: Acute Current Visit: Yes (4) Acute respiratory failure with hypoxia and hypercapnia SNOMED Code(s): 262381662 Code(s): J96.01 - ACUTE RESPIRATORY FAILURE WITH HYPOXIA; J96.02 - ACUTE RESPIRATORY FAILURE WITH HYPERCAPNIA Status: Acute Current Visit: Yes (5) Hx of deep venous thrombosis SNOMED Code(s): 468663077 Code(s): Z86.718 - PERSONAL HISTORY OF OTHER VENOUS THROMBOSIS AND EMBOLISM Status: Chronic Current Visit: No - Problem List Review Problem List Initiated/Reviewed/Updated: Yes - My Orders Last 24 Hours: My Active Orders 08/05/19 14:00 Warfarin [Coumadin] 5 mg PO DAILY@1300 08/05/19 Dinner Regular Diet [DIET] 08/06/19 07:30 Pantoprazole [ProTONIX] 40 mg PO DAILY@0730 08/06/19 10:56 Furosemide [Lasix] 20 mg IVPUSH ONETIME ONE Potassium Chloride [Klor-Con M20] 40 meq PO ONETIME ONE 08/06/19 10:57 RT Acapella [RESPCARE] Routine 08/06/19 14:00 guaiFENesin [Mucinex] 600 mg PO TID 08/07/19 05:00 BASIC METABOLIC PANEL,BMP [CHEM] Timed CBC W/O DIFF,HEMOGRAM [HEME] Timed (1) INR,PT,PROTHROMBIN TIME [COAG] Timed - Plan Plan:: ASSESSMENT AND PLAN - Acute on chronic systolic congestive heart failure-Echocardiogram showed a further reduction in her left ventricular systolic function down to around 30% with a level of 40 to 45% just a few months ago. Right thoracentesis completed 08/05. Still mild JVD but volume status is slowly improving. Still has significant hypoxia. -Continue beta-gaye -furosemide x1 today -Close monitoring of intake and output Left lower lobe pneumonia-complicated by acute respiratory failure with hypoxia and hypercapnia. No fever overnight. Cultures remain negative. -Antibiotic coverage with levofloxacin -Scheduled and as needed leave albuterol nebulizers -Follow-up cultures -Supplement oxygen as needed COPD with acute exacerbation-secondary to pneumonia as discussed above. Wheezing has resolved. -Scheduled and as needed nebulizers -Additional management as above History of DVT-chronically anticoagulated. INR was reversed. Warfarin has been reinitiated. -Continue warfarin -Repeat INR in the morning Maintenance issues - - DVT prophylaxis -mechanical and enoxaparin until INR therapeutic - GI prophylaxis -PPI - Nutrition -mechanical soft - Santana catheter -we will remove this afternoon after diuresis Disposition - I would anticipate discharge to the senior living for subacute rehab after the hospital stay John Lott M.D.
[2019-08-06] MEDS ORDERED: Furosemide 20 MG/2 ML VIAL IVPUSH ONE (11:30)
[2019-08-06] MEDS ORDERED: Potassium Chloride 20 MEQ Tab.ER PO ONE (11:30)
[2019-08-06] MEDS: guaiFENesin 600 MG Tab.ER PO SCH ×2 (13:07→20:19)
[2019-08-06] MEDS: Warfarin 5 MG Tab PO SCH (13:07)
[2019-08-06] MEDS: Nortriptyline 25 MG Cap PO SCH (20:19)
[2019-08-07] MEDS: LORazepam 2 MG/ML SDV IVPUSH PRN ×2 (00:23→22:45)
[2019-08-07] MEDS: Levalbuterol HCl 1.25 MG/3 ML Neb NEB SCH ×5 (06:58→20:20)
[2019-08-07] MEDS: Pantoprazole 40 MG Tab.CR PO SCH (08:15)
[2019-08-07] MEDS: Lactobacillus Rhamnosus GG (Probiotic) Cap PO SCH ×2 (08:16→20:23)
[2019-08-07] MEDS: Carvedilol 12.5 MG Tab PO SCH ×2 (08:16→20:23)
[2019-08-07] MEDS: Cholestyramine/Sucrose Powder 4 GM Packet PO SCH ×4 (08:16→20:52)
[2019-08-07] MEDS: Folic Acid 1 MG Tab PO SCH (08:17)
[2019-08-07] MEDS: Enoxaparin 40 MG/0.4 ML Syringe SUBCUT SCH (08:17)
[2019-08-07] MEDS: Hypromellose 0.3% Ophth Soln 15 ML Bottle EYEBOTH SCH (08:17)
[2019-08-07] MEDS: guaiFENesin 600 MG Tab.ER PO SCH ×3 (08:18→20:24)
[2019-08-07] MEDS: Theophylline 300 MG Tab.ER PO SCH (08:18)
--- NOTE | 2019-08-07 09:03 | PCM.PN ---
- General Info Date of Service: 08/07/19 Subjective Update: No acute events overnight. Still a little short of breath and coughing a little bit. Strength is slowly improving. Appetite has been good. No fevers. Cultures are all negative. Decent response to diuresis yesterday but intake and output was still slightly on the positive side. Still requiring 4 L of supplemental oxygen. Kidney function stable. Potassium on the low side. Functional Status: Reports: Pain Controlled, Tolerating Diet - Review of Systems General: Reports: Weakness. Denies: Fever Pulmonary: Reports: Shortness of Breath - Patient Data Vitals - Most Recent: Last Vital Signs Temp 35.5 C 08/07/19 07:59 Pulse 90 08/07/19 08:16 Resp 19 08/07/19 07:59 BP 110/58 L 08/07/19 08:16 Pulse Ox 90 L 08/07/19 06:00 Weight - Most Recent: 65.635 kg I&O - Last 24 Hours: Intake & Output 08/06/19 08/07/19 08/07/19 22:59 06:59 14:59 Intake Total 2140 180 Output Total 1400 500 Balance 740 -320 Lab Results Last 24 Hours: Laboratory Results - last 24 hr 08/07/19 08/07/19 08/07/19 Range/Units 04:20 04:20 04:20 WBC 10.3 (4.5-11.0) K/uL RBC 4.41 (3.30-5.50) M/uL Hgb 11.8 L (12.0-15.0) g/dL Hct 38.4 (36.0-48.0) % MCV 87 (80-98) fL MCH 27 (27-31) pg MCHC 31 L (32-36) % Plt Count 219 (150-400) K/uL PT 15.3 H (9.5-12.0) sec INR 1.45 H (0.80-1.20) Sodium 142 (140-148) mmol/L Potassium 3.5 L (3.6-5.2) mmol/L Chloride 106 (100-108) mmol/L Carbon Dioxide 28 (21-32) mmol/L Anion Gap 11.5 (5.0-14.0) mmol/L BUN 17 (7-18) mg/dL Creatinine 0.6 (0.6-1.0) mg/dL Est Cr Clr Drug Dosing 61.79 mL/min Estimated GFR (MDRD) > 60 (>60) Glucose 96 (74-106) mg/dL Calcium 8.1 L (8.5-10.1) mg/dL Matias Results Last 24 Hours: Microbiology 08/04/19 17:41 Gram Stain - Final Thoracentesis Fluid - Right Body Fluid Culture - Preliminary NO GROWTH AFTER 2 DAYS 08/01/19 19:40 Aerobic Blood Culture - Final Blood - Venous - Iv Start NO GROWTH AFTER 5 DAYS Anaerobic Blood Culture - Final NO GROWTH AFTER 5 DAYS Med Orders - Current: Current Medications Acetaminophen (Tylenol) 650 mg PO Q4H PRN PRN Reason: Pain (Mild 1-3)/fever Acetaminophen (Tylenol) 650 mg RECTAL Q4H PRN PRN Reason: Mild pain/fever Artificial Tears (Genteal Mild To Moderate Ophth Soln) 0 ml EYEBOTH DAILY [facility] Last Admin: 08/07/19 08:17 Dose: 2 drop Carvedilol (Coreg) 12.5 mg PO BID [facility] Last Admin: 08/07/19 08:16 Dose: 12.5 mg Cholestyramine Resin (Cholestyramine Packet) 4 gm PO TID [facility] Last Admin: 08/07/19 08:16 Dose: 4 gm Clonazepam (Klonopin) 0.5 mg PO BEDTIME PRN PRN Reason: Anxiety Last Admin: 08/02/19 20:32 Dose: 0.5 mg Enoxaparin Sodium (Lovenox) 40 mg SUBCUT DAILY [facility] Last Admin: 08/07/19 08:17 Dose: 40 mg Folic Acid (Folic Acid) 1 mg PO DAILY [facility] Last Admin: 08/07/19 08:17 Dose: 1 mg Guaifenesin (Mucinex) 600 mg PO TID [facility] Last Admin: 08/07/19 08:18 Dose: 600 mg Levofloxacin/Dextrose 750 mg/ (Premix) 150 mls @ 100 mls/hr IV Q48H [facility] Last Admin: 08/05/19 20:55 Dose: 100 mls/hr Lactobacillus Rhamnosus (Culturelle) 1 cap PO BID [facility] Last Admin: 08/07/19 08:16 Dose: 1 cap Levalbuterol HCl (Xopenex) 1.25 mg NEB QIDRT [facility] Last Admin: 08/07/19 06:58 Dose: 1.25 mg Levalbuterol HCl (Xopenex) 1.25 mg NEB Q4H PRN PRN Reason: shortness of breath/wheezing Loperamide HCl (Imodium) 2 mg PO QID PRN PRN Reason: DIARRHEA Lorazepam (Ativan) 0.5 mg IVPUSH Q4H PRN PRN Reason: Anxiety Last Admin: 08/07/19 00:23 Dose: 0.5 mg Morphine Sulfate (Morphine) 2 mg IVPUSH Q2H PRN PRN Reason: Pain (severe 7-10) Last Admin: 08/05/19 23:27 Dose: 2 mg Nortriptyline HCl (Nortriptyline) 50 mg PO BEDTIME [facility] Last Admin: 08/06/19 20:19 Dose: 50 mg Ondansetron HCl (Zofran Odt) 4 mg PO Q6H PRN PRN Reason: Nausea able to take PO Ondansetron HCl (Zofran) 4 mg IV Q6H PRN PRN Reason: Nausea/Vomiting Pantoprazole Sodium (Protonix) 40 mg PO DAILY@0730 [facility] Last Admin: 08/07/19 08:15 Dose: 40 mg Potassium Chloride (Klor-Con M20) 40 meq PO BID [facility] Theophylline (Theophylline Anhydrous) 300 mg PO DAILY [facility] Last Admin: 08/07/19 08:18 Dose: 300 mg Warfarin Sodium (Coumadin) 5 mg PO DAILY@1300 [facility] Last Admin: 08/06/19 13:07 Dose: 5 mg Discontinued Medications Albuterol (Proventil Neb Soln) 2.5 mg NEB Q4H PRN PRN Reason: Shortness Of Breath/wheezing Albuterol/Ipratropium (Duoneb 3.0-0.5 Mg/3 Ml) Confirm Administered Dose 3 ml .ROUTE .STK-MED ONE Stop: 08/01/19 19:47 Last Admin: 08/01/19 21:39 Dose: Not Given Albuterol/Ipratropium (Duoneb 3.0-0.5 Mg/3 Ml) 3 ml NEB ONETIME ONE Stop: 08/01/19 19:48 Last Admin: 08/01/19 21:50 Dose: 3 ml Albuterol/Ipratropium (Duoneb 3.0-0.5 Mg/3 Ml) 3 ml NEB QIDRT [facility] Last Admin: 08/02/19 20:36 Dose: 3 ml Furosemide (Lasix) 40 mg IVPUSH ONETIME ONE Stop: 08/04/19 11:01 Last Admin: 08/04/19 11:05 Dose: 40 mg Furosemide (Lasix) 20 mg IVPUSH ONETIME ONE Stop: 08/05/19 13:46 Last Admin: 08/05/19 13:47 Dose: 20 mg Furosemide (Lasix) 20 mg IVPUSH ONETIME ONE Stop: 08/06/19 11:31 Last Admin: 08/06/19 12:25 Dose: 20 mg Heparin Sodium (Porcine) (Heparin Sodium) Confirm Administered Dose 5,000 units .ROUTE .[facility] ONE Stop: 08/01/19 20:13 Last Admin: 08/01/19 21:39 Dose: Not Given Heparin Sodium (Porcine) (Heparin Sodium) Confirm Administered Dose 5,000 units .ROUTE .[facility] ONE Stop: 08/01/19 20:15 Last Admin: 08/01/19 21:39 Dose: Not Given Heparin Sodium (Porcine) (Heparin Sodium) Confirm Administered Dose 5,000 units .ROUTE .[facility] ONE Stop: 08/02/19 22:16 Last Admin: 08/03/19 00:35 Dose: Not Given Sodium Chloride (Normal Saline) Confirm Administered Dose 500 mls @ as directed .ROUTE .[facility] ONE Stop: 08/01/19 20:13 Last Admin: 08/01/19 21:40 Dose: Not Given Levofloxacin/Dextrose 750 mg/ (Premix) 150 mls @ 100 mls/hr IV ONETIME ONE Stop: 08/01/19 22:13 Last Admin: 08/01/19 21:00 Dose: 100 mls/hr Vancomycin HCl 1 gm/ Sodium (Chloride) 250 mls @ 150 mls/hr IV ONETIME ONE Stop: 08/01/19 22:22 Last Admin: 08/01/19 23:26 Dose: Not Given Propofol (Diprivan 100 Ml) Confirm Administered Dose 100 mls @ as directed .ROUTE .[facility] ONE Stop: 08/01/19 21:24 Last Admin: 08/01/19 23:04 Dose: Not Given Potassium Chloride/Dextrose/Sod Cl (D5 Ns With 20 Meq Kcl) 1,000 mls @ 100 mls/ hr IV ASDIRECTED [facility] Last Admin: 08/02/19 20:17 Dose: 100 mls/hr Heparin Sodium (Porcine) 5,000 (units/ Sodium Chloride) 501 mls @ 1 mls/hr IV ASDIRECTED [facility] Last Admin: 08/02/19 07:45 Dose: 1 mls/hr Piperacillin Sod/Tazobactam (Sod 3.375 gm/ Sodium Chloride) 50 mls @ 100 mls/ hr IV Q6H [facility] Last Admin: 08/02/19 03:52 Dose: 100 mls/hr Propofol (Diprivan 100 Ml) 100 mls @ 2.041 mls/hr IV TITRATE [facility]; Protocol Last Titration: 08/02/19 09:38 Dose: 0 mcg/kg/min, 0 mls/hr Piperacillin/Tazobactam/ (Dextrose 3.375 gm/ Premix) 50 mls @ 100 mls/hr IV Q6H [facility] Last Admin: 08/05/19 04:09 Dose: 100 mls/hr Propofol (Diprivan 100 Ml) 100 mls @ 1.969 mls/hr IV TITRATE [facility]; Protocol Last Titration: 08/05/19 06:50 Dose: 22 mcg/kg/min, 8.664 mls/hr Heparin Sodium (Porcine) 5,000 (units/ Sodium Chloride) 501 mls @ 1 mls/hr IV ASDIRECTED [facility] Last Admin: 08/02/19 22:30 Dose: 1 mls/hr Potassium Chloride/Dextrose/Sod Cl (D5 Ns With 20 Meq Kcl) 1,000 mls @ 75 mls/ hr IV ASDIRECTED [facility] Last Admin: 08/04/19 01:44 Dose: 75 mls/hr Phytonadione 1 mg/ Sodium (Chloride) 50.5 mls @ 100 mls/hr IV ONETIME ONE Stop: 08/03/19 10:30 Last Admin: 08/03/19 09:48 Dose: 100 mls/hr Sodium Chloride (Normal Saline) 500 mls @ 500 mls/hr IV .[facility] ONE Stop: 08/03/19 18:50 Last Admin: 08/03/19 18:02 Dose: 500 mls/hr Sodium Chloride (Normal Saline) 75 mls @ 3 mls/sec IV ASDIRECTED [facility] Stop: 08/04/19 09:31 Potassium Chloride/Dextrose/Sod Cl (D5 Ns With 20 Meq Kcl) 1,000 mls @ 25 mls/ hr IV ASDIRECTED [facility] Last Admin: 08/04/19 22:00 Dose: 25 mls/hr Potassium Chloride 20 meq/Lidocaine HCl 2 ml/ Sodium Chloride 112 mls @ 56 mls/ hr IV Q2H [facility] Stop: 08/05/19 13:59 Last Admin: 08/05/19 12:47 Dose: 56 mls/hr Iopamidol (Isovue-300 (61%)) 100 ml IV ONETIME ONE Stop: 08/04/19 09:23 Last Admin: 08/04/19 10:37 Dose: 100 ml Levalbuterol HCl (Xopenex) Confirm Administered Dose 1.25 mg .ROUTE .STK-MED ONE Stop: 08/02/19 21:33 Last Admin: 08/02/19 23:11 Dose: Not Given Levalbuterol HCl (Xopenex) 1.25 mg NEB ONETIME ONE Stop: 08/02/19 21:21 Last Admin: 08/02/19 21:15 Dose: 1.25 mg Lorazepam (Ativan) 1 mg IVPUSH ONETIME ONE Stop: 08/02/19 21:11 Last Admin: 08/02/19 21:07 Dose: 1 mg Methylprednisolone Sodium Succinate (Solu-Medrol) 125 mg IVPUSH ONETIME ONE Stop: 08/01/19 19:53 Last Admin: 08/01/19 19:42 Dose: 125 mg Methylprednisolone Sodium Succinate (Solu-Medrol) 62.5 mg IVPUSH Q6H [facility] Last Admin: 08/02/19 08:27 Dose: 62.5 mg Methylprednisolone Sodium Succinate (Solu-Medrol) 62.5 mg IVPUSH Q8H [facility] Last Admin: 08/03/19 08:21 Dose: 62.5 mg Methylprednisolone Sodium Succinate (Solu-Medrol) 40 mg IV Q8H [facility] Last Admin: 08/05/19 08:16 Dose: 40 mg Midazolam HCl (Versed 1 Mg/Ml) Confirm Administered Dose 4 mg .ROUTE .STK-MED ONE Stop: 08/01/19 20:19 Last Admin: 08/01/19 21:42 Dose: Not Given Midazolam HCl (Versed 1 Mg/Ml) Confirm Administered Dose 5 mg .ROUTE .STK-MED ONE Stop: 08/01/19 20:44 Last Admin: 08/01/19 21:43 Dose: Not Given Midazolam HCl (Versed 1 Mg/Ml) 4 mg IVPUSH ONETIME ONE Stop: 08/01/19 21:43 Last Admin: 08/01/19 20:25 Dose: 4 mg Midazolam HCl (Versed 1 Mg/Ml) 3 mg IVPUSH ONETIME ONE Stop: 08/01/19 20:41 Last Admin: 08/01/19 20:40 Dose: 3 mg Pantoprazole Sodium (Protonix Iv) 40 mg IV Q24H [facility] Last Admin: 08/04/19 21:35 Dose: 40 mg Potassium Chloride (Klor-Con M20) 40 meq PO ONETIME ONE Stop: 08/06/19 11:31 Last Admin: 08/06/19 12:25 Dose: 40 meq Propofol (Diprivan 20 Ml) Confirm Administered Dose 200 mg .ROUTE .STK-MED ONE Stop: 08/01/19 19:59 Propofol (Diprivan 20 Ml) Confirm Administered Dose 200 mg .ROUTE .STK-MED ONE Stop: 08/02/19 22:47 Sodium Chloride (Saline Flush) 10 ml FLUSH ONETIME [facility] Stop: 08/04/19 09:31 Succinylcholine Chloride (Quelicin) Confirm Administered Dose 200 mg .ROUTE .STK -MED ONE Stop: 08/01/19 19:59 Succinylcholine Chloride (Quelicin) Confirm Administered Dose 200 mg .ROUTE .STK -MED ONE Stop: 08/01/19 20:01 Succinylcholine Chloride (Quelicin) Confirm Administered Dose 200 mg .ROUTE .STK -MED ONE Stop: 08/02/19 22:47 - Exam Quality Assessment: Supplemental Oxygen General: Alert, Oriented, Cooperative, No Acute Distress Neck: JVD Lungs: Normal Respiratory Effort, Decreased Breath Sounds (left lung base ), Crackles (left lung base) Cardiovascular: Regular Rate, Regular Rhythm, Gallops GI/Abdominal Exam: Soft, No Distention Extremities: No Pedal Edema. No: Increased Warmth Skin: Warm, Dry Psy/Mental Status: Alert, Normal Affect Sepsis Event Note - Evaluation Sepsis Screening Result: No Definite Risk - Focused Exam Vital Signs: Vital Signs Temp Pulse Pulse Resp BP BP Pulse Ox 08/07/19 08:16 90 110/58 L 08/07/19 07:59 35.5 C 88 19 119/80 08/07/19 06:58 87 08/07/19 06:00 85 23 H 119/80 90 L 08/07/19 04:00 36.7 C 83 20 125/62 89 L 08/07/19 02:00 85 18 119/56 L 90 L 08/07/19 00:00 36.8 C 84 21 H 116/60 90 L 08/06/19 22:00 81 14 114/59 L 95 Date Exam was Performed: 08/07/19 Time Exam was Performed: 12:18 - Problem List & Annotations (1) CHF (congestive heart failure) SNOMED Code(s): 52110883 Code(s): I50.9 - HEART FAILURE, UNSPECIFIED Status: Chronic Current Visit : Yes Qualifiers: Heart failure type: systolic Heart failure chronicity: acute on chronic Qualified Code(s): I50.23 - Acute on chronic systolic (congestive) heart failure (2) Pneumonia SNOMED Code(s): 059714899 Code(s): J18.9 - PNEUMONIA, UNSPECIFIED ORGANISM Status: Acute Current Visit: Yes Qualifiers: Pneumonia type: due to unspecified organism Laterality: left Lung location: lower lobe of lung Qualified Code(s): J18.9 - Pneumonia, unspecified organism (3) Acute exacerbation of chronic obstructive pulmonary disease SNOMED Code(s): 257478696 Code(s): J44.1 - CHRONIC OBSTRUCTIVE PULMONARY DISEASE W (ACUTE) EXACERBATION Status: Acute Current Visit: Yes (4) Acute respiratory failure with hypoxia and hypercapnia SNOMED Code(s): 477898888 Code(s): J96.01 - ACUTE RESPIRATORY FAILURE WITH HYPOXIA; J96.02 - ACUTE RESPIRATORY FAILURE WITH HYPERCAPNIA Status: Acute Current Visit: Yes (5) Hx of deep venous thrombosis SNOMED Code(s): 706312549 Code(s): Z86.718 - PERSONAL HISTORY OF OTHER VENOUS THROMBOSIS AND EMBOLISM Status: Chronic Current Visit: No (6) Hypokalemia SNOMED Code(s): 15305546 Code(s): E87.6 - HYPOKALEMIA Status: Acute Current Visit: Yes - Problem List Review Problem List Initiated/Reviewed/Updated: Yes - My Orders Last 24 Hours: My Active Orders 08/06/19 10:57 RT Acapella [RESPCARE] Routine 08/06/19 14:00 guaiFENesin [Mucinex] 600 mg PO TID 08/07/19 09:00 Transfer Patient (Change bed) [ADT] Routine Furosemide [Lasix] 20 mg IVPUSH Q12H Potassium Chloride [Klor-Con M20] 40 meq PO BID 08/07/19 09:02 Discontinue Telemetry Monitoring [Cardiac Monitoring Discontinue] [RC] Click to Edit 08/08/19 05:00 BASIC METABOLIC PANEL,BMP [CHEM] Timed INR,PT,PROTHROMBIN TIME [COAG] Timed 08/08/19 07:00 PT Evaluation and Treatment [CONS] Routine - Plan Plan:: ASSESSMENT AND PLAN - Acute on chronic systolic congestive heart failure-Echocardiogram showed a further reduction in her left ventricular systolic function down to around 30% with a level of 40 to 45% just a few months ago. Right thoracentesis completed 08/05. Still mild JVD and persistent hypoxia. I think her blood pressure is too low to consider additional afterload reduction such as MIGUEL inhibitor. -Continue beta-gaye -furosemide every 12 hours -Close monitoring of intake and output Left lower lobe pneumonia-complicated by acute respiratory failure with hypoxia and hypercapnia. No fever and cultures remain negative. -Antibiotic coverage with levofloxacin (started 08/01) -Scheduled and as needed leave albuterol nebulizers -Follow-up cultures -Supplement oxygen as needed COPD with acute exacerbation-secondary to pneumonia as discussed above. Wheezing has resolved and steroids were discontinued. -Scheduled and as needed nebulizers -Additional management as above History of DVT-chronically anticoagulated. INR was reversed and is currently subtherapeutic. -Continue warfarin with increased dosing until therapeutic -Repeat INR in the morning Maintenance issues - - DVT prophylaxis -mechanical and enoxaparin until INR therapeutic - GI prophylaxis -PPI - Nutrition -mechanical soft - Santana catheter -this will remain in place today with more aggressive diuresis planned Disposition - I would anticipate discharge home with home care versus possibly to the alf for subacute rehab after the hospital stay. She is stable for transfer out of the intensive care unit today. John Lott M.D.
[2019-08-07] MEDS: Potassium Chloride 20 MEQ Tab.ER PO SCH ×2 (09:11→20:23)
[2019-08-07] MEDS: Furosemide 20 MG/2 ML VIAL IVPUSH SCH ×2 (09:49→20:24)
[2019-08-07] MEDS ORDERED: Dimethicone 20%/Zinc Oxide 25% 56 GM Spray Bottle TOP PRN (11:40)
[2019-08-07] MEDS: Warfarin 5 MG Tab PO SCH (14:39)
[2019-08-07] MEDS: Levofloxacin/Dextrose 5%-Water 750 MG in Premix Bag 1 BAG IV SCH (20:24)
[2019-08-07] MEDS: Nortriptyline 25 MG Cap PO SCH (20:24)
[2019-08-08] MEDS: Levalbuterol HCl 1.25 MG/3 ML Neb NEB SCH ×4 (07:04→21:29)
[2019-08-08] MEDS: Pantoprazole 40 MG Tab.CR PO SCH (08:00)
--- NOTE | 2019-08-08 08:12 | OR ---
DATE OF PROCEDURE: 08/04/2019 SURGEON: Lonnie Enrique MD PROCEDURE: Ultrasound-guided thoracentesis, right. COMPLICATION: None. INSOLE AND HEEL STIFFENER: None. INDICATIONS: A pleasant female with a fluid collection in her right chest requiring drainage and culture. RISKS: We discussed the risks, benefits, alternatives, and limitations including, but not limited to infection, bleeding, pneumothorax, and other risks not listed here with the patient and family. PROCEDURE IN DETAIL: The patient was placed in left lateral decubitus position. The ultrasound probe was used to identify the largest fluid collection. This was then prepped, draped, and anesthetized with lidocaine. Gown and gloves were used. The sheath was advanced as the needle was withdrawn through a small tristan in the skin. This was then hooked to a vacuum bottle system and 800 mL of straw-colored fluid was identified and cultured. The device was then removed. Direct pressure was held for 5 minutes and dressings were applied. The patient tolerated the procedure well. Lonnie Enrique MD /[id number]
[2019-08-08] MEDS: Carvedilol 12.5 MG Tab PO SCH ×2 (09:24→21:23)
[2019-08-08] MEDS: Cholestyramine/Sucrose Powder 4 GM Packet PO SCH ×4 (09:24→21:25)
[2019-08-08] MEDS: Folic Acid 1 MG Tab PO SCH (09:25)
[2019-08-08] MEDS: Lactobacillus Rhamnosus GG (Probiotic) Cap PO SCH ×2 (09:25→21:24)
[2019-08-08] MEDS: Hypromellose 0.3% Ophth Soln 15 ML Bottle EYEBOTH SCH (09:25)
[2019-08-08] MEDS: Potassium Chloride 20 MEQ Tab.ER PO SCH ×2 (09:25→21:24)
[2019-08-08] MEDS: guaiFENesin 600 MG Tab.ER PO SCH ×3 (09:26→21:23)
[2019-08-08] MEDS: Enoxaparin 40 MG/0.4 ML Syringe SUBCUT SCH (09:26)
[2019-08-08] MEDS: Furosemide 20 MG/2 ML VIAL IVPUSH SCH (09:26)
[2019-08-08] MEDS: Theophylline 300 MG Tab.ER PO SCH (09:26)
[2019-08-08] MEDS: Warfarin 5 MG Tab PO SCH (12:28)
--- NOTE | 2019-08-08 15:11 | PCM.PN ---
- General Info Date of Service: 08/08/19 Subjective Update: Ms. Wing has been stable since yesterday, afebrile, with good diuresis. She reports much less shortness of breath and is currently on room air. Functional Status: Reports: Tolerating Diet, Ambulating - Review of Systems General: Reports: Weakness, Fatigue. Denies: Fever, Chills Pulmonary: Reports: Shortness of Breath. Denies: Pleuritic Chest Pain, Cough, Sputum, Hemoptysis, Wheezing Cardiovascular: Reports: Dyspnea on Exertion. Denies: Chest Pain, Palpitations , Orthopnea, PND, Edema, Lightheadedness Gastrointestinal: Reports: No Symptoms - Patient Data Vitals - Most Recent: Last Vital Signs Temp 99.2 F 08/08/19 11:00 Pulse 78 08/08/19 14:56 Resp 18 08/08/19 11:00 BP 85/60 L 08/08/19 14:49 Pulse Ox 95 08/08/19 11:00 Weight - Most Recent: 144 lb 11.2 oz I&O - Last 24 Hours: Intake & Output 08/08/19 08/08/19 08/08/19 06:59 14:59 22:59 Intake Total 100 700 Output Total 1700 Balance -1600 700 Lab Results Last 24 Hours: Laboratory Results - last 24 hr 08/08/19 08/08/19 Range/Units 05:00 05:00 PT 18.2 H (9.5-12.0) sec INR 1.74 H (0.80-1.20) Sodium 140 (140-148) mmol/L Potassium 4.3 (3.6-5.2) mmol/L Chloride 106 (100-108) mmol/L Carbon Dioxide 29 (21-32) mmol/L Anion Gap 4.8 L (5.0-14.0) mmol/L BUN 17 (7-18) mg/dL Creatinine 0.6 (0.6-1.0) mg/dL Est Cr Clr Drug Dosing 61.79 mL/min Estimated GFR (MDRD) > 60 (>60) Glucose 104 (74-106) mg/dL Calcium 8.2 L (8.5-10.1) mg/dL Matias Results Last 24 Hours: Microbiology 08/04/19 17:41 Gram Stain - Final Thoracentesis Fluid - Right Body Fluid Culture - Final NO GROWTH AFTER 3 DAYS Med Orders - Current: Current Medications Acetaminophen (Tylenol) 650 mg PO Q4H PRN PRN Reason: Pain (Mild 1-3)/fever Acetaminophen (Tylenol) 650 mg RECTAL Q4H PRN PRN Reason: Mild pain/fever Artificial Tears (Genteal Mild To Moderate Ophth Soln) 0 ml EYEBOTH DAILY [facility] Last Admin: 08/08/19 09:25 Dose: 1 ea Carvedilol (Coreg) 12.5 mg PO BID [facility] Last Admin: 08/08/19 09:24 Dose: 12.5 mg Cholestyramine Resin (Cholestyramine Packet) 4 gm PO TID [facility] Last Admin: 08/08/19 14:43 Dose: Not Given Clonazepam (Klonopin) 0.5 mg PO BEDTIME PRN PRN Reason: Anxiety Last Admin: 08/02/19 20:32 Dose: 0.5 mg Dimethicone/Zinc Oxide (Rash Relief-Zinc Oxide [place]) 1 gm TOP ASDIRECTED PRN PRN Reason: Rash Last Admin: 08/07/19 16:43 Dose: 1 applic Enoxaparin Sodium (Lovenox) 40 mg SUBCUT DAILY [facility] Last Admin: 08/08/19 09:26 Dose: 40 mg Folic Acid (Folic Acid) 1 mg PO DAILY [facility] Last Admin: 08/08/19 09:25 Dose: 1 mg Furosemide (Lasix) 20 mg IVPUSH DAILY [facility] Guaifenesin (Mucinex) 600 mg PO TID [facility] Last Admin: 08/08/19 14:42 Dose: 600 mg Lactobacillus Rhamnosus (Culturelle) 1 cap PO BID [facility] Last Admin: 08/08/19 09:25 Dose: 1 cap Levalbuterol HCl (Xopenex) 1.25 mg NEB QIDRT [facility] Last Admin: 08/08/19 14:37 Dose: 1.25 mg Levalbuterol HCl (Xopenex) 1.25 mg NEB Q4H PRN PRN Reason: shortness of breath/wheezing Levofloxacin (Levaquin) 750 mg PO Q24H [facility] Loperamide HCl (Imodium) 2 mg PO QID PRN PRN Reason: DIARRHEA Lorazepam (Ativan) 0.5 mg IVPUSH Q4H PRN PRN Reason: Anxiety Last Admin: 08/07/19 22:45 Dose: 0.5 mg Nortriptyline HCl (Nortriptyline) 50 mg PO BEDTIME [facility] Last Admin: 08/07/19 20:24 Dose: 50 mg Ondansetron HCl (Zofran Odt) 4 mg PO Q6H PRN PRN Reason: Nausea able to take PO Ondansetron HCl (Zofran) 4 mg IV Q6H PRN PRN Reason: Nausea/Vomiting Pantoprazole Sodium (Protonix) 40 mg PO DAILY@0730 [facility] Last Admin: 08/08/19 08:00 Dose: 40 mg Potassium Chloride (Klor-Con M20) 40 meq PO BID [facility] Last Admin: 08/08/19 09:25 Dose: 40 meq Theophylline (Theophylline Anhydrous) 300 mg PO DAILY [facility] Last Admin: 08/08/19 09:26 Dose: 300 mg Warfarin Sodium (Coumadin) 5 mg PO DAILY@1300 [facility] Last Admin: 08/08/19 12:28 Dose: 5 mg Discontinued Medications Albuterol (Proventil Neb Soln) 2.5 mg NEB Q4H PRN PRN Reason: Shortness Of Breath/wheezing Albuterol/Ipratropium (Duoneb 3.0-0.5 Mg/3 Ml) Confirm Administered Dose 3 ml .ROUTE .STK-MED ONE Stop: 08/01/19 19:47 Last Admin: 08/01/19 21:39 Dose: Not Given Albuterol/Ipratropium (Duoneb 3.0-0.5 Mg/3 Ml) 3 ml NEB ONETIME ONE Stop: 08/01/19 19:48 Last Admin: 08/01/19 21:50 Dose: 3 ml Albuterol/Ipratropium (Duoneb 3.0-0.5 Mg/3 Ml) 3 ml NEB QIDRT [facility] Last Admin: 08/02/19 20:36 Dose: 3 ml Furosemide (Lasix) 40 mg IVPUSH ONETIME ONE Stop: 08/04/19 11:01 Last Admin: 08/04/19 11:05 Dose: 40 mg Furosemide (Lasix) 20 mg IVPUSH ONETIME ONE Stop: 08/05/19 13:46 Last Admin: 08/05/19 13:47 Dose: 20 mg Furosemide (Lasix) 20 mg IVPUSH ONETIME ONE Stop: 08/06/19 11:31 Last Admin: 08/06/19 12:25 Dose: 20 mg Furosemide (Lasix) 20 mg IVPUSH Q12H [facility] Last Admin: 08/08/19 09:26 Dose: 20 mg Heparin Sodium (Porcine) (Heparin Sodium) Confirm Administered Dose 5,000 units .ROUTE .[facility] ONE Stop: 08/01/19 20:13 Last Admin: 08/01/19 21:39 Dose: Not Given Heparin Sodium (Porcine) (Heparin Sodium) Confirm Administered Dose 5,000 units .ROUTE .[facility] ONE Stop: 08/01/19 20:15 Last Admin: 08/01/19 21:39 Dose: Not Given Heparin Sodium (Porcine) (Heparin Sodium) Confirm Administered Dose 5,000 units .ROUTE .[facility] ONE Stop: 08/02/19 22:16 Last Admin: 08/03/19 00:35 Dose: Not Given Sodium Chloride (Normal Saline) Confirm Administered Dose 500 mls @ as directed .ROUTE .[facility] ONE Stop: 08/01/19 20:13 Last Admin: 08/01/19 21:40 Dose: Not Given Levofloxacin/Dextrose 750 mg/ (Premix) 150 mls @ 100 mls/hr IV ONETIME ONE Stop: 08/01/19 22:13 Last Admin: 08/01/19 21:00 Dose: 100 mls/hr Vancomycin HCl 1 gm/ Sodium (Chloride) 250 mls @ 150 mls/hr IV ONETIME ONE Stop: 08/01/19 22:22 Last Admin: 08/01/19 23:26 Dose: Not Given Propofol (Diprivan 100 Ml) Confirm Administered Dose 100 mls @ as directed .ROUTE .[facility] ONE Stop: 08/01/19 21:24 Last Admin: 08/01/19 23:04 Dose: Not Given Potassium Chloride/Dextrose/Sod Cl (D5 Ns With 20 Meq Kcl) 1,000 mls @ 100 mls/ hr IV ASDIRECTED [facility] Last Admin: 08/02/19 20:17 Dose: 100 mls/hr Heparin Sodium (Porcine) 5,000 (units/ Sodium Chloride) 501 mls @ 1 mls/hr IV ASDIRECTED [facility] Last Admin: 08/02/19 07:45 Dose: 1 mls/hr Levofloxacin/Dextrose 750 mg/ (Premix) 150 mls @ 100 mls/hr IV Q48H [facility] Last Admin: 08/07/19 20:24 Dose: 100 mls/hr Piperacillin Sod/Tazobactam (Sod 3.375 gm/ Sodium Chloride) 50 mls @ 100 mls/ hr IV Q6H [facility] Last Admin: 08/02/19 03:52 Dose: 100 mls/hr Propofol (Diprivan 100 Ml) 100 mls @ 2.041 mls/hr IV TITRATE [facility]; Protocol Last Titration: 08/02/19 09:38 Dose: 0 mcg/kg/min, 0 mls/hr Piperacillin/Tazobactam/ (Dextrose 3.375 gm/ Premix) 50 mls @ 100 mls/hr IV Q6H [facility] Last Admin: 08/05/19 04:09 Dose: 100 mls/hr Propofol (Diprivan 100 Ml) 100 mls @ 1.969 mls/hr IV TITRATE [facility]; Protocol Last Titration: 08/05/19 06:50 Dose: 22 mcg/kg/min, 8.664 mls/hr Heparin Sodium (Porcine) 5,000 (units/ Sodium Chloride) 501 mls @ 1 mls/hr IV ASDIRECTED [facility] Last Admin: 08/02/19 22:30 Dose: 1 mls/hr Potassium Chloride/Dextrose/Sod Cl (D5 Ns With 20 Meq Kcl) 1,000 mls @ 75 mls/ hr IV ASDIRECTED [facility] Last Admin: 08/04/19 01:44 Dose: 75 mls/hr Phytonadione 1 mg/ Sodium (Chloride) 50.5 mls @ 100 mls/hr IV ONETIME ONE Stop: 08/03/19 10:30 Last Admin: 08/03/19 09:48 Dose: 100 mls/hr Sodium Chloride (Normal Saline) 500 mls @ 500 mls/hr IV .[facility] ONE Stop: 08/03/19 18:50 Last Admin: 08/03/19 18:02 Dose: 500 mls/hr Sodium Chloride (Normal Saline) 75 mls @ 3 mls/sec IV ASDIRECTED [facility] Stop: 08/04/19 09:31 Potassium Chloride/Dextrose/Sod Cl (D5 Ns With 20 Meq Kcl) 1,000 mls @ 25 mls/ hr IV ASDIRECTED [facility] Last Admin: 08/04/19 22:00 Dose: 25 mls/hr Potassium Chloride 20 meq/Lidocaine HCl 2 ml/ Sodium Chloride 112 mls @ 56 mls/ hr IV Q2H [facility] Stop: 08/05/19 13:59 Last Admin: 08/05/19 12:47 Dose: 56 mls/hr Levofloxacin/Dextrose 750 mg/ (Premix) 150 mls @ 100 mls/hr IV Q24H [facility] Iopamidol (Isovue-300 (61%)) 100 ml IV ONETIME ONE Stop: 08/04/19 09:23 Last Admin: 08/04/19 10:37 Dose: 100 ml Levalbuterol HCl (Xopenex) Confirm Administered Dose 1.25 mg .ROUTE .STK-MED ONE Stop: 08/02/19 21:33 Last Admin: 08/02/19 23:11 Dose: Not Given Levalbuterol HCl (Xopenex) 1.25 mg NEB ONETIME ONE Stop: 08/02/19 21:21 Last Admin: 08/02/19 21:15 Dose: 1.25 mg Lorazepam (Ativan) 1 mg IVPUSH ONETIME ONE Stop: 08/02/19 21:11 Last Admin: 08/02/19 21:07 Dose: 1 mg Methylprednisolone Sodium Succinate (Solu-Medrol) 125 mg IVPUSH ONETIME ONE Stop: 08/01/19 19:53 Last Admin: 08/01/19 19:42 Dose: 125 mg Methylprednisolone Sodium Succinate (Solu-Medrol) 62.5 mg IVPUSH Q6H [facility] Last Admin: 08/02/19 08:27 Dose: 62.5 mg Methylprednisolone Sodium Succinate (Solu-Medrol) 62.5 mg IVPUSH Q8H [facility] Last Admin: 08/03/19 08:21 Dose: 62.5 mg Methylprednisolone Sodium Succinate (Solu-Medrol) 40 mg IV Q8H [facility] Last Admin: 08/05/19 08:16 Dose: 40 mg Midazolam HCl (Versed 1 Mg/Ml) Confirm Administered Dose 4 mg .ROUTE .STK-MED ONE Stop: 08/01/19 20:19 Last Admin: 08/01/19 21:42 Dose: Not Given Midazolam HCl (Versed 1 Mg/Ml) Confirm Administered Dose 5 mg .ROUTE .STK-MED ONE Stop: 08/01/19 20:44 Last Admin: 08/01/19 21:43 Dose: Not Given Midazolam HCl (Versed 1 Mg/Ml) 4 mg IVPUSH ONETIME ONE Stop: 08/01/19 21:43 Last Admin: 08/01/19 20:25 Dose: 4 mg Midazolam HCl (Versed 1 Mg/Ml) 3 mg IVPUSH ONETIME ONE Stop: 08/01/19 20:41 Last Admin: 08/01/19 20:40 Dose: 3 mg Morphine Sulfate (Morphine) 2 mg IVPUSH Q2H PRN PRN Reason: Pain (severe 7-10) Last Admin: 08/05/19 23:27 Dose: 2 mg Pantoprazole Sodium (Protonix Iv) 40 mg IV Q24H [facility] Last Admin: 08/04/19 21:35 Dose: 40 mg Potassium Chloride (Klor-Con M20) 40 meq PO ONETIME ONE Stop: 08/06/19 11:31 Last Admin: 08/06/19 12:25 Dose: 40 meq Propofol (Diprivan 20 Ml) Confirm Administered Dose 200 mg .ROUTE .STK-MED ONE Stop: 08/01/19 19:59 Propofol (Diprivan 20 Ml) Confirm Administered Dose 200 mg .ROUTE .STK-MED ONE Stop: 08/02/19 22:47 Sodium Chloride (Saline Flush) 10 ml FLUSH ONETIME [facility] Stop: 08/04/19 09:31 Succinylcholine Chloride (Quelicin) Confirm Administered Dose 200 mg .ROUTE .STK -MED ONE Stop: 08/01/19 19:59 Succinylcholine Chloride (Quelicin) Confirm Administered Dose 200 mg .ROUTE .STK -MED ONE Stop: 08/01/19 20:01 Succinylcholine Chloride (Quelicin) Confirm Administered Dose 200 mg .ROUTE .STK -MED ONE Stop: 08/02/19 22:47 - Exam Quality Assessment: DVT Prophylaxis General: Alert, Oriented, Cooperative, No Acute Distress Lungs: Clear to Auscultation, Normal Respiratory Effort Cardiovascular: Regular Rate, Regular Rhythm, No Murmurs GI/Abdominal Exam: Soft, Non-Tender, No Organomegaly, No Distention Extremities: Non-Tender, No Pedal Edema Sepsis Event Note - Evaluation Sepsis Screening Result: No Definite Risk - Focused Exam Vital Signs: Vital Signs Temp Pulse Pulse Resp BP BP Pulse Ox 08/08/19 14:56 78 08/08/19 14:49 85/60 L 08/08/19 14:25 85/44 L 08/08/19 11:00 99.2 F 93 18 90/51 L 95 08/08/19 10:43 80 08/08/19 09:24 82 123/70 08/08/19 07:55 08/08/19 07:54 98.8 F 82 16 123/70 98 08/08/19 07:04 78 Pulse Ox 08/08/19 14:56 08/08/19 14:49 08/08/19 14:25 08/08/19 11:00 08/08/19 10:43 08/08/19 09:24 08/08/19 07:55 99 08/08/19 07:54 08/08/19 07:04 Date Exam was Performed: 08/08/19 Time Exam was Performed: 15:11 - Problem List Review Problem List Initiated/Reviewed/Updated: Yes - My Orders Last 24 Hours: My Active Orders 08/09/19 05:00 BASIC METABOLIC PANEL,BMP [CHEM] Timed INR,PT,PROTHROMBIN TIME [COAG] Timed 08/09/19 09:00 Furosemide [Lasix] 20 mg IVPUSH DAILY levoFLOXacin [Levaquin] 750 mg PO Q24H - Plan Plan:: ASSESSMENT AND PLAN - Acute on chronic systolic congestive heart failure-Echocardiogram showed a further reduction in her left ventricular systolic function down to around 30% with a level of 40 to 45% just a few months ago. Right thoracentesis completed 08/05. Improved over the last 24 hours with good diuresis. -Continue beta-gaye -furosemide 20mg IV daily -Close monitoring of intake and output Left lower lobe pneumonia-complicated by acute respiratory failure with hypoxia and hypercapnia. No fever and cultures remain negative. Now off of supplemental O2. -Oral levofloxacin (started 08/01) -Scheduled and as needed leave albuterol nebulizers -Follow-up cultures COPD with acute exacerbation-secondary to pneumonia as discussed above. Wheezing has resolved and steroids were discontinued. -Scheduled and as needed nebulizers -Additional management as above History of DVT-chronically anticoagulated. INR was reversed and is currently subtherapeutic. -Continue warfarin with increased dosing until therapeutic -Repeat INR in the morning Maintenance issues - - DVT prophylaxis -mechanical and enoxaparin until INR therapeutic - GI prophylaxis -PPI - Nutrition -mechanical soft - Santana catheter -this will remain in place today with more aggressive diuresis planned Disposition - I would anticipate discharge home with home care.
[2019-08-08] MEDS ORDERED: Levofloxacin/Dextrose 5%-Water 750 MG in Premix Bag 1 BAG IV SCH (21:00)
[2019-08-08] MEDS: Nortriptyline 25 MG Cap PO SCH (21:24)
[2019-08-08] MEDS: LORazepam 2 MG/ML SDV IVPUSH PRN (23:50)
[2019-08-09] MEDS: Levalbuterol HCl 1.25 MG/3 ML Neb NEB SCH ×4 (07:03→20:59)
[2019-08-09] MEDS: Pantoprazole 40 MG Tab.CR PO SCH (08:24)
[2019-08-09] MEDS: Cholestyramine/Sucrose Powder 4 GM Packet PO SCH ×3 (08:25→20:21)
[2019-08-09] MEDS: Carvedilol 12.5 MG Tab PO SCH ×2 (08:25→20:19)
[2019-08-09] MEDS: Lactobacillus Rhamnosus GG (Probiotic) Cap PO SCH ×2 (08:25→20:20)
[2019-08-09] MEDS: Potassium Chloride 20 MEQ Tab.ER PO SCH ×2 (08:26→20:20)
[2019-08-09] MEDS: Folic Acid 1 MG Tab PO SCH (08:26)
[2019-08-09] MEDS: Hypromellose 0.3% Ophth Soln 15 ML Bottle EYEBOTH SCH (08:26)
[2019-08-09] MEDS: Levofloxacin 250 MG Tab PO SCH (08:27)
[2019-08-09] MEDS: Theophylline 300 MG Tab.ER PO SCH (08:28)
[2019-08-09] MEDS: guaiFENesin 600 MG Tab.ER PO SCH ×3 (08:28→20:20)
[2019-08-09] MEDS: Furosemide 20 MG/2 ML VIAL IVPUSH SCH (08:29)
[2019-08-09] MEDS: Enoxaparin 40 MG/0.4 ML Syringe SUBCUT SCH (08:29)
--- NOTE | 2019-08-09 13:54 | PCM.PN ---
- General Info Date of Service: 08/09/19 Subjective Update: Ms. Wing has been stable since yesterday with further improvement in shortness of breath and good diuresis. She has been out walking in the hallways without the use of supplemental oxygen. Appetite and overall strength seem to be gradually improving. Functional Status: Reports: Tolerating Diet, Ambulating, Urinating - Review of Systems General: Reports: Weakness, Fatigue. Denies: Fever, Chills Pulmonary: Reports: Shortness of Breath. Denies: Pleuritic Chest Pain, Cough, Sputum, Hemoptysis, Wheezing Cardiovascular: Reports: Dyspnea on Exertion. Denies: Chest Pain, Palpitations , Orthopnea, PND, Edema, Lightheadedness Gastrointestinal: Reports: No Symptoms - Patient Data Vitals - Most Recent: Last Vital Signs Temp 98.0 F 08/09/19 10:33 Pulse 90 08/09/19 10:59 Resp 20 08/09/19 10:33 BP 100/41 L 08/09/19 11:26 Pulse Ox 94 L 08/09/19 10:33 Weight - Most Recent: 144 lb 11.2 oz I&O - Last 24 Hours: Intake & Output 08/08/19 08/09/19 08/09/19 22:59 06:59 14:59 Intake Total 240 Output Total 1700 50 1450 Balance -1700 -50 -1210 Lab Results Last 24 Hours: Laboratory Results - last 24 hr 08/09/19 08/09/19 Range/Units 05:30 05:30 PT 19.9 H (9.5-12.0) sec INR 1.91 H (0.80-1.20) Sodium 138 L (140-148) mmol/L Potassium 4.9 (3.6-5.2) mmol/L Chloride 105 (100-108) mmol/L Carbon Dioxide 28 (21-32) mmol/L Anion Gap 9.9 (5.0-14.0) mmol/L BUN 18 (7-18) mg/dL Creatinine 0.6 (0.6-1.0) mg/dL Est Cr Clr Drug Dosing 61.79 mL/min Estimated GFR (MDRD) > 60 (>60) Glucose 88 (74-106) mg/dL Calcium 8.6 (8.5-10.1) mg/dL Med Orders - Current: Current Medications Acetaminophen (Tylenol) 650 mg PO Q4H PRN PRN Reason: Pain (Mild 1-3)/fever Acetaminophen (Tylenol) 650 mg RECTAL Q4H PRN PRN Reason: Mild pain/fever Artificial Tears (Genteal Mild To Moderate Ophth Soln) 0 ml EYEBOTH DAILY [facility] Last Admin: 08/09/19 08:26 Dose: 1 ea Carvedilol (Coreg) 12.5 mg PO BID [facility] Last Admin: 08/09/19 08:25 Dose: 12.5 mg Cholestyramine Resin (Cholestyramine Packet) 4 gm PO TID [facility] Last Admin: 08/09/19 08:25 Dose: 4 gm Clonazepam (Klonopin) 0.5 mg PO BEDTIME PRN PRN Reason: Anxiety Last Admin: 08/02/19 20:32 Dose: 0.5 mg Dimethicone/Zinc Oxide (Rash Relief-Zinc Oxide Otley) 1 gm TOP ASDIRECTED PRN PRN Reason: Rash Last Admin: 08/07/19 16:43 Dose: 1 applic Enoxaparin Sodium (Lovenox) 40 mg SUBCUT DAILY [facility] Last Admin: 08/09/19 08:29 Dose: 40 mg Folic Acid (Folic Acid) 1 mg PO DAILY [facility] Last Admin: 08/09/19 08:26 Dose: 1 mg Furosemide (Lasix) 20 mg IVPUSH DAILY [facility] Last Admin: 08/09/19 08:29 Dose: 20 mg Guaifenesin (Mucinex) 600 mg PO TID [facility] Last Admin: 08/09/19 08:28 Dose: 600 mg Lactobacillus Rhamnosus (Culturelle) 1 cap PO BID [facility] Last Admin: 08/09/19 08:25 Dose: 1 cap Levalbuterol HCl (Xopenex) 1.25 mg NEB QIDRT [facility] Last Admin: 08/09/19 10:59 Dose: 1.25 mg Levalbuterol HCl (Xopenex) 1.25 mg NEB Q4H PRN PRN Reason: shortness of breath/wheezing Levofloxacin (Levaquin) 750 mg PO Q24H [facility] Last Admin: 08/09/19 08:27 Dose: 750 mg Loperamide HCl (Imodium) 2 mg PO QID PRN PRN Reason: DIARRHEA Lorazepam (Ativan) 0.5 mg IVPUSH Q4H PRN PRN Reason: Anxiety Last Admin: 08/08/19 23:50 Dose: 0.5 mg Nortriptyline HCl (Nortriptyline) 50 mg PO BEDTIME [facility] Last Admin: 08/08/19 21:24 Dose: 50 mg Ondansetron HCl (Zofran Odt) 4 mg PO Q6H PRN PRN Reason: Nausea able to take PO Ondansetron HCl (Zofran) 4 mg IV Q6H PRN PRN Reason: Nausea/Vomiting Pantoprazole Sodium (Protonix) 40 mg PO DAILY@0730 [facility] Last Admin: 08/09/19 08:24 Dose: 40 mg Potassium Chloride (Klor-Con M20) 40 meq PO BID [facility] Last Admin: 08/09/19 08:26 Dose: 40 meq Theophylline (Theophylline Anhydrous) 300 mg PO DAILY [facility] Last Admin: 08/09/19 08:28 Dose: 300 mg Warfarin Sodium (Coumadin) 5 mg PO DAILY@1300 [facility] Last Admin: 08/08/19 12:28 Dose: 5 mg Discontinued Medications Albuterol (Proventil Neb Soln) 2.5 mg NEB Q4H PRN PRN Reason: Shortness Of Breath/wheezing Albuterol/Ipratropium (Duoneb 3.0-0.5 Mg/3 Ml) Confirm Administered Dose 3 ml .ROUTE .STK-MED ONE Stop: 08/01/19 19:47 Last Admin: 08/01/19 21:39 Dose: Not Given Albuterol/Ipratropium (Duoneb 3.0-0.5 Mg/3 Ml) 3 ml NEB ONETIME ONE Stop: 08/01/19 19:48 Last Admin: 08/01/19 21:50 Dose: 3 ml Albuterol/Ipratropium (Duoneb 3.0-0.5 Mg/3 Ml) 3 ml NEB QIDRT [facility] Last Admin: 08/02/19 20:36 Dose: 3 ml Furosemide (Lasix) 40 mg IVPUSH ONETIME ONE Stop: 08/04/19 11:01 Last Admin: 08/04/19 11:05 Dose: 40 mg Furosemide (Lasix) 20 mg IVPUSH ONETIME ONE Stop: 08/05/19 13:46 Last Admin: 08/05/19 13:47 Dose: 20 mg Furosemide (Lasix) 20 mg IVPUSH ONETIME ONE Stop: 08/06/19 11:31 Last Admin: 08/06/19 12:25 Dose: 20 mg Furosemide (Lasix) 20 mg IVPUSH Q12H [facility] Last Admin: 08/08/19 09:26 Dose: 20 mg Heparin Sodium (Porcine) (Heparin Sodium) Confirm Administered Dose 5,000 units .ROUTE .[facility] ONE Stop: 08/01/19 20:13 Last Admin: 08/01/19 21:39 Dose: Not Given Heparin Sodium (Porcine) (Heparin Sodium) Confirm Administered Dose 5,000 units .ROUTE .[facility] ONE Stop: 08/01/19 20:15 Last Admin: 08/01/19 21:39 Dose: Not Given Heparin Sodium (Porcine) (Heparin Sodium) Confirm Administered Dose 5,000 units .ROUTE .[facility] ONE Stop: 08/02/19 22:16 Last Admin: 08/03/19 00:35 Dose: Not Given Sodium Chloride (Normal Saline) Confirm Administered Dose 500 mls @ as directed .ROUTE .[facility] ONE Stop: 08/01/19 20:13 Last Admin: 08/01/19 21:40 Dose: Not Given Levofloxacin/Dextrose 750 mg/ (Premix) 150 mls @ 100 mls/hr IV ONETIME ONE Stop: 08/01/19 22:13 Last Admin: 08/01/19 21:00 Dose: 100 mls/hr Vancomycin HCl 1 gm/ Sodium (Chloride) 250 mls @ 150 mls/hr IV ONETIME ONE Stop: 08/01/19 22:22 Last Admin: 08/01/19 23:26 Dose: Not Given Propofol (Diprivan 100 Ml) Confirm Administered Dose 100 mls @ as directed .ROUTE .[facility] ONE Stop: 08/01/19 21:24 Last Admin: 08/01/19 23:04 Dose: Not Given Potassium Chloride/Dextrose/Sod Cl (D5 Ns With 20 Meq Kcl) 1,000 mls @ 100 mls/ hr IV ASDIRECTED [facility] Last Admin: 08/02/19 20:17 Dose: 100 mls/hr Heparin Sodium (Porcine) 5,000 (units/ Sodium Chloride) 501 mls @ 1 mls/hr IV ASDIRECTED [facility] Last Admin: 08/02/19 07:45 Dose: 1 mls/hr Levofloxacin/Dextrose 750 mg/ (Premix) 150 mls @ 100 mls/hr IV Q48H [facility] Last Admin: 08/07/19 20:24 Dose: 100 mls/hr Piperacillin Sod/Tazobactam (Sod 3.375 gm/ Sodium Chloride) 50 mls @ 100 mls/ hr IV Q6H [facility] Last Admin: 08/02/19 03:52 Dose: 100 mls/hr Propofol (Diprivan 100 Ml) 100 mls @ 2.041 mls/hr IV TITRATE [facility]; Protocol Last Titration: 08/02/19 09:38 Dose: 0 mcg/kg/min, 0 mls/hr Piperacillin/Tazobactam/ (Dextrose 3.375 gm/ Premix) 50 mls @ 100 mls/hr IV Q6H [facility] Last Admin: 08/05/19 04:09 Dose: 100 mls/hr Propofol (Diprivan 100 Ml) 100 mls @ 1.969 mls/hr IV TITRATE [facility]; Protocol Last Titration: 08/05/19 06:50 Dose: 22 mcg/kg/min, 8.664 mls/hr Heparin Sodium (Porcine) 5,000 (units/ Sodium Chloride) 501 mls @ 1 mls/hr IV ASDIRECTED [facility] Last Admin: 08/02/19 22:30 Dose: 1 mls/hr Potassium Chloride/Dextrose/Sod Cl (D5 Ns With 20 Meq Kcl) 1,000 mls @ 75 mls/ hr IV ASDIRECTED [facility] Last Admin: 08/04/19 01:44 Dose: 75 mls/hr Phytonadione 1 mg/ Sodium (Chloride) 50.5 mls @ 100 mls/hr IV ONETIME ONE Stop: 08/03/19 10:30 Last Admin: 08/03/19 09:48 Dose: 100 mls/hr Sodium Chloride (Normal Saline) 500 mls @ 500 mls/hr IV .BOLUS ONE Stop: 08/03/19 18:50 Last Admin: 08/03/19 18:02 Dose: 500 mls/hr Sodium Chloride (Normal Saline) 75 mls @ 3 mls/sec IV ASDIRECTED [facility] Stop: 08/04/19 09:31 Potassium Chloride/Dextrose/Sod Cl (D5 Ns With 20 Meq Kcl) 1,000 mls @ 25 mls/ hr IV ASDIRECTED [facility] Last Admin: 08/04/19 22:00 Dose: 25 mls/hr Potassium Chloride 20 meq/Lidocaine HCl 2 ml/ Sodium Chloride 112 mls @ 56 mls/ hr IV Q2H [facility] Stop: 08/05/19 13:59 Last Admin: 08/05/19 12:47 Dose: 56 mls/hr Levofloxacin/Dextrose 750 mg/ (Premix) 150 mls @ 100 mls/hr IV Q24H [facility] Iopamidol (Isovue-300 (61%)) 100 ml IV ONETIME ONE Stop: 08/04/19 09:23 Last Admin: 08/04/19 10:37 Dose: 100 ml Levalbuterol HCl (Xopenex) Confirm Administered Dose 1.25 mg .ROUTE .STK-MED ONE Stop: 08/02/19 21:33 Last Admin: 08/02/19 23:11 Dose: Not Given Levalbuterol HCl (Xopenex) 1.25 mg NEB ONETIME ONE Stop: 08/02/19 21:21 Last Admin: 08/02/19 21:15 Dose: 1.25 mg Lorazepam (Ativan) 1 mg IVPUSH ONETIME ONE Stop: 08/02/19 21:11 Last Admin: 08/02/19 21:07 Dose: 1 mg Methylprednisolone Sodium Succinate (Solu-Medrol) 125 mg IVPUSH ONETIME ONE Stop: 08/01/19 19:53 Last Admin: 08/01/19 19:42 Dose: 125 mg Methylprednisolone Sodium Succinate (Solu-Medrol) 62.5 mg IVPUSH Q6H [facility] Last Admin: 08/02/19 08:27 Dose: 62.5 mg Methylprednisolone Sodium Succinate (Solu-Medrol) 62.5 mg IVPUSH Q8H [facility] Last Admin: 08/03/19 08:21 Dose: 62.5 mg Methylprednisolone Sodium Succinate (Solu-Medrol) 40 mg IV Q8H [facility] Last Admin: 08/05/19 08:16 Dose: 40 mg Midazolam HCl (Versed 1 Mg/Ml) Confirm Administered Dose 4 mg .ROUTE .STK-MED ONE Stop: 08/01/19 20:19 Last Admin: 08/01/19 21:42 Dose: Not Given Midazolam HCl (Versed 1 Mg/Ml) Confirm Administered Dose 5 mg .ROUTE .STK-MED ONE Stop: 08/01/19 20:44 Last Admin: 08/01/19 21:43 Dose: Not Given Midazolam HCl (Versed 1 Mg/Ml) 4 mg IVPUSH ONETIME ONE Stop: 08/01/19 21:43 Last Admin: 08/01/19 20:25 Dose: 4 mg Midazolam HCl (Versed 1 Mg/Ml) 3 mg IVPUSH ONETIME ONE Stop: 08/01/19 20:41 Last Admin: 08/01/19 20:40 Dose: 3 mg Morphine Sulfate (Morphine) 2 mg IVPUSH Q2H PRN PRN Reason: Pain (severe 7-10) Last Admin: 08/05/19 23:27 Dose: 2 mg Pantoprazole Sodium (Protonix Iv) 40 mg IV Q24H [facility] Last Admin: 08/04/19 21:35 Dose: 40 mg Potassium Chloride (Klor-Con M20) 40 meq PO ONETIME ONE Stop: 08/06/19 11:31 Last Admin: 08/06/19 12:25 Dose: 40 meq Propofol (Diprivan 20 Ml) Confirm Administered Dose 200 mg .ROUTE .STK-MED ONE Stop: 08/01/19 19:59 Propofol (Diprivan 20 Ml) Confirm Administered Dose 200 mg .ROUTE .STK-MED ONE Stop: 08/02/19 22:47 Sodium Chloride (Saline Flush) 10 ml FLUSH ONETIME [facility] Stop: 08/04/19 09:31 Succinylcholine Chloride (Quelicin) Confirm Administered Dose 200 mg .ROUTE .STK -MED ONE Stop: 08/01/19 19:59 Succinylcholine Chloride (Quelicin) Confirm Administered Dose 200 mg .ROUTE .STK -MED ONE Stop: 08/01/19 20:01 Succinylcholine Chloride (Quelicin) Confirm Administered Dose 200 mg .ROUTE .STK -MED ONE Stop: 08/02/19 22:47 - Exam Quality Assessment: DVT Prophylaxis General: Alert, Oriented, Cooperative, Mild Distress Lungs: Clear to Auscultation, Normal Respiratory Effort Cardiovascular: Regular Rate, Regular Rhythm, No Murmurs GI/Abdominal Exam: Soft, Non-Tender, No Organomegaly, No Distention Extremities: Non-Tender, No Pedal Edema Sepsis Event Note - Evaluation Sepsis Screening Result: No Definite Risk - Focused Exam Vital Signs: Vital Signs Temp Pulse Pulse Resp BP BP Pulse Ox 08/09/19 11:26 100/41 L 08/09/19 10:59 90 08/09/19 10:33 98.0 F 90 20 114/58 L 94 L 08/09/19 08:25 86 128/64 08/09/19 07:03 86 08/09/19 07:00 98.3 F 85 20 128/64 98 08/09/19 02:40 98.6 F 67 20 119/60 94 L Date Exam was Performed: 08/09/19 Time Exam was Performed: 13:54 - Problem List Review Problem List Initiated/Reviewed/Updated: Yes - My Orders Last 24 Hours: My Active Orders 08/09/19 09:00 Furosemide [Lasix] 20 mg IVPUSH DAILY levoFLOXacin [Levaquin] 750 mg PO Q24H 08/10/19 05:00 INR,PT,PROTHROMBIN TIME [COAG] Timed - Plan Plan:: ASSESSMENT AND PLAN - Acute on chronic systolic congestive heart failure-Echocardiogram showed a further reduction in her left ventricular systolic function down to around 30% with a level of 40 to 45% just a few months ago. Right thoracentesis completed 08/05. Short of breath and no longer requiring supplemental oxygen. -Continue beta-gaye -furosemide 20mg IV daily -Close monitoring of intake and output Left lower lobe pneumonia-complicated by acute respiratory failure with hypoxia and hypercapnia. No fever and cultures remain negative. Now off of supplemental O2. -Oral levofloxacin (started 08/08) -Scheduled and as needed leave albuterol nebulizers -Follow-up cultures COPD with acute exacerbation-secondary to pneumonia as discussed above. Wheezing has resolved and steroids were discontinued. -Scheduled and as needed nebulizers -Additional management as above History of DVT-chronically anticoagulated. INR was reversed and is currently subtherapeutic. -Continue warfarin with increased dosing until therapeutic -Repeat INR in the morning Maintenance issues - - DVT prophylaxis -mechanical and enoxaparin until INR therapeutic - GI prophylaxis -PPI - Nutrition -mechanical soft - Santana catheter -this will remain in place today with more aggressive diuresis planned Disposition - I would anticipate discharge home with home care tomorrow.
[2019-08-09] MEDS: Warfarin 5 MG Tab PO SCH (14:27)
[2019-08-09] MEDS: Nortriptyline 25 MG Cap PO SCH (20:20)
[2019-08-09] MEDS: ClonazePAM 0.5 MG Tab PO PRN (23:29)
[2019-08-10] MEDS: LORazepam 2 MG/ML SDV IVPUSH PRN (01:59)
[2019-08-10] MEDS: Levalbuterol HCl 1.25 MG/3 ML Neb NEB SCH ×2 (07:18→10:58)
[2019-08-10] MEDS: Pantoprazole 40 MG Tab.CR PO SCH (07:31)
[2019-08-10] MEDS: Potassium Chloride 20 MEQ Tab.ER PO SCH (09:15)
[2019-08-10] MEDS: Folic Acid 1 MG Tab PO SCH (09:15)
[2019-08-10] MEDS: Hypromellose 0.3% Ophth Soln 15 ML Bottle EYEBOTH SCH (09:15)
[2019-08-10] MEDS: Theophylline 300 MG Tab.ER PO SCH (09:15)
[2019-08-10] MEDS: Lactobacillus Rhamnosus GG (Probiotic) Cap PO SCH (09:16)
[2019-08-10] MEDS: Cholestyramine/Sucrose Powder 4 GM Packet PO SCH (09:16)
[2019-08-10] MEDS: guaiFENesin 600 MG Tab.ER PO SCH (09:16)
[2019-08-10] MEDS: Levofloxacin 250 MG Tab PO SCH (09:16)
[2019-08-10] MEDS: Furosemide 20 MG/2 ML VIAL IVPUSH SCH (09:17)
[2019-08-10] MEDS: Enoxaparin 40 MG/0.4 ML Syringe SUBCUT SCH (09:17)
[2019-08-10] MEDS: Carvedilol 12.5 MG Tab PO SCH (09:17)
--- NOTE | 2019-08-10 10:57 | PCM.DCSUM1 ---
Discharge Summary - Hospital Course Brief History: Ms. Wing is an 84-year-old woman who was admitted through the emergency department with respiratory failure secondary to underlying pneumonia and COPD exacerbation. - Discharge Data Discharge Date: 08/10/19 Discharge Disposition: Home, Self-Care 01 Condition: Fair - Referral to Home Health Primary Care Physician: David Avitia MD - Discharge Diagnosis/Problem(s) (1) Pneumonia SNOMED Code(s): 885912234 ICD Code: J18.9 - PNEUMONIA, UNSPECIFIED ORGANISM Status: Acute Current Visit: Yes Qualifiers: Pneumonia type: due to unspecified organism Laterality: left Lung location: lower lobe of lung Qualified Code(s): J18.9 - Pneumonia, unspecified organism (2) CHF (congestive heart failure) SNOMED Code(s): 57187966 ICD Code: I50.9 - HEART FAILURE, UNSPECIFIED Status: Chronic Current Visit: Yes Qualifiers: Heart failure type: systolic Heart failure chronicity: acute on chronic Qualified Code(s): I50.23 - Acute on chronic systolic (congestive) heart failure (3) Acute respiratory failure with hypoxia and hypercapnia SNOMED Code(s): 686874003 ICD Code: J96.01 - ACUTE RESPIRATORY FAILURE WITH HYPOXIA; J96.02 - ACUTE RESPIRATORY FAILURE WITH HYPERCAPNIA Status: Acute Current Visit: Yes (4) Hx of deep venous thrombosis SNOMED Code(s): 514747171 ICD Code: Z86.718 - PERSONAL HISTORY OF OTHER VENOUS THROMBOSIS AND EMBOLISM Status: Chronic Current Visit: No - Patient Summary/Data Consults: Consultations 08/08/19 07:00 PT Evaluation and Treatment [CONS] Routine Please Evaluate and Treat. PT Reason for Consult: Strengthening This query below is only for informational purposes and is not editable. Admission Diagnosis/Problem: Pneumonia Hospital Course: Ms. Wing presented to the emergency room with shortness of breath. She was intubated and sedated and unable to provide history. History was gathered with the help of emergency room personnel as well as 2 of her sons. They report that she has had difficulty with what they call upper respiratory infections over the past couple of weeks. She did have antibiotics a few weeks ago for what they think was a sinus infection. She has been doing some coughing but not producing much sputum. Over the past couple of days she has seemed more short of breath to them. Patient got very short of breath after supper and then had an episode of vomiting. They do not think she is had any fevers. They are not aware of any obvious sick contacts. She is on Humira for her inflammatory bowel disease. The dose of this was recently decreased from weekly to every other week. After she became very short of breath and ambulance was summoned and she was brought to the emergency room. She was urgently intubated because of persistent hypoxia despite high flow oxygen. Work -up in the emergency room revealed mild leukocytosis, mild respiratory acidosis on laboratory studies. Chest x-ray showed patchy bilateral pneumonia. She was admitted to the intensive care unit. On admission she was started on broad- spectrum IV antibiotics with levofloxacin and Zosyn, after blood cultures were obtained. By the following morning she was looking good and tolerating ventilatory support with an FiO2 40%. Spontaneous breathing trial was performed which she tolerated well and she was extubated. Unfortunately during the day and into the evening she became progressively more short of breath and required reintubation that night. She was kept on the ventilator an additional 2 days and extubated on the morning of August 04. CT scan showed evidence of pneumonia but also congestive heart failure. Echocardiogram was obtained and showed decrease in her left ventricular function with an estimated ejection fraction of 30%. She was started on IV diuretic therapy which she continued through the rest of her hospitalization. She was noted to have further improvement in respiratory status and by the time of discharge was not requiring supplemental oxygen. By the time of discharge she had completed an adequate course of antibiotic therapy. She is on chronic anticoagulation because of underlying atrial fibrillation and INR was monitored daily during hospitalization. By the time of discharge INR was within normal range. She will be discharged with daily dose of oral furosemide and potassium supplement. She also will be discharged with twice daily probiotic therapy for the next few months. Activity will be as tolerated and she will resume her usual diet. Follow-up appointments will be scheduled with her primary care provider as well as gastroenterology. Follow-up appointment will also be scheduled in the Coumadin clinic for ongoing management of her anticoagulation. - Patient Instructions Diet: Low Sodium Activity: As Tolerated Other/Special Instructions: Please schedule follow-up appointment with primary care provider within 1 week. 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 Please schedule follow-up appointment with Coumadin clinic in 3 to 4 days. - Discharge Plan *PRESCRIPTION DRUG MONITORING PROGRAM REVIEWED*: Not Applicable *COPY OF PRESCRIPTION DRUG MONITORING REPORT IN PATIENT ALYSHA: Not Applicable Prescriptions/Med Rec: Furosemide 20 mg PO DAILY #30 tablet Lactobacillus Rhamnosus GG [Culturelle] 1 cap PO BID #60 cap Potassium Chloride [Klor-Con M20] 20 meq PO BID #30 tab.er Home Medications: Home Meds Calcium Carb & Citrate/Vit D3 [Calcium + Vitamin D3 Caplet] 1 each PO BID [History] Folic Acid 1 mg PO DAILY 03/23/13 [History] Theophylline [Theophylline Anhydrous] 300 mg PO DAILY 03/23/13 [History] Warfarin Sliding Scale [Coumadin Sliding Scale] 5 mg PO MOWE 03/23/13 [History] carvediloL [Coreg] 12.5 mg PO BID 03/23/13 [History] Biotin 1,000 mcg PO DAILY 05/26/16 [History] Vitamin B Complex with C [Super B Complex With C] 1 tab PO DAILY 05/26/16 [ History] Nortriptyline 50 mg PO BEDTIME 09/16/16 [History] Albuterol Sulfate [Ventolin Hfa] 2 puff IH BID PRN 09/18/16 [History] Acetaminophen [Acetaminophen Extra Strength] 1,000 mg PO TID PRN 07/22/18 [ History] Carboxymethylcellulos/Glycerin [Refresh Optive] 1 drop EYEBOTH DAILY 07/22/18 [ History] Cholestyramine/Aspartame [Questran Light Powder] 4 gm PO TID 07/22/18 [History] Fluticasone Propionate [Flonase] 2 spray NS BID PRN 07/22/18 [History] Warfarin [Coumadin] 2.5 mg PO SUTUTHSA 07/23/18 [History] Adalimumab [Humira(Cf) Pen] 40 mg SQ ASDIRECTED 08/02/19 [History] ClonazePAM [KlonoPIN] 1 tab PO BEDTIME PRN 08/02/19 [History] Fluticasone/Salmeterol [Advair 250-50 Diskus] 1 puff INH BID 08/02/19 [History] Furosemide 20 mg PO DAILY #30 tablet 08/10/19 [Rx] Lactobacillus Rhamnosus GG [Culturelle] 1 cap PO BID #60 cap 08/10/19 [Rx] Loperamide HCl [Imodium A-D] 2 mg PO QID PRN #0 08/10/19 [Rx] Potassium Chloride [Klor-Con M20] 20 meq PO BID #30 tab.er 08/10/19 [Rx] Patient Handouts: Community-Acquired Pneumonia, Adult, [id number] Referrals: Coumadin,Clinic [Ordering Only Provider] - 08/15/19 12:15 pm David Avitia MD [Primary Care Provider] - 08/15/19 1:00 pm (Please arrive 15 minutes early to register for your appointment.) Marcela Lazar NP [Consulting Physician] - 08/19/19 2:00 pm (Please arrive 15 minutes early to register for your appointment. ) - Discharge Summary/Plan Comment DC Time >30 min.: No - Patient Data Vitals - Most Recent: Last Vital Signs Temp 99.2 F 08/10/19 07:30 Pulse 94 08/10/19 09:17 Resp 16 08/10/19 07:00 BP 107/93 H 08/10/19 09:17 Pulse Ox 96 08/10/19 07:00 Weight - Most Recent: 144 lb 11.2 oz I&O - Last 24 hours: Intake & Output 08/09/19 08/10/19 08/10/19 22:59 06:59 14:59 Intake Total 240 400 700 Output Total 800 500 Balance 240 -400 200 Lab Results - Last 24 hrs: Laboratory Results - last 24 hr 08/10/19 Range/Units 05:12 PT 23.0 H (9.5-12.0) sec INR 2.23 H (0.80-1.20) Med Orders - Current: Current Medications Acetaminophen (Tylenol) 650 mg PO Q4H PRN PRN Reason: Pain (Mild 1-3)/fever Last Admin: 08/10/19 07:30 Dose: 650 mg Acetaminophen (Tylenol) 650 mg RECTAL Q4H PRN PRN Reason: Mild pain/fever Artificial Tears (Genteal Mild To Moderate Ophth Soln) 0 ml EYEBOTH DAILY [facility] Last Admin: 08/10/19 09:15 Dose: 1 ea Carvedilol (Coreg) 12.5 mg PO BID [facility] Last Admin: 08/10/19 09:17 Dose: 12.5 mg Cholestyramine Resin (Cholestyramine Packet) 4 gm PO TID [facility] Last Admin: 08/10/19 09:16 Dose: 4 gm Clonazepam (Klonopin) 0.5 mg PO BEDTIME PRN PRN Reason: Anxiety Last Admin: 08/09/19 23:29 Dose: 0.5 mg Dimethicone/Zinc Oxide (Rash Relief-Zinc Oxide [place]) 1 gm TOP ASDIRECTED PRN PRN Reason: Rash Last Admin: 08/07/19 16:43 Dose: 1 applic Enoxaparin Sodium (Lovenox) 40 mg SUBCUT DAILY [facility] Last Admin: 08/10/19 09:17 Dose: 40 mg Folic Acid (Folic Acid) 1 mg PO DAILY [facility] Last Admin: 08/10/19 09:15 Dose: 1 mg Furosemide (Lasix) 20 mg IVPUSH DAILY [facility] Last Admin: 08/10/19 09:17 Dose: 20 mg Guaifenesin (Mucinex) 600 mg PO TID [facility] Last Admin: 08/10/19 09:16 Dose: 600 mg Lactobacillus Rhamnosus (Culturelle) 1 cap PO BID [facility] Last Admin: 08/10/19 09:16 Dose: 1 cap Levalbuterol HCl (Xopenex) 1.25 mg NEB QIDRT [facility] Last Admin: 08/10/19 07:18 Dose: 1.25 mg Levalbuterol HCl (Xopenex) 1.25 mg NEB Q4H PRN PRN Reason: shortness of breath/wheezing Levofloxacin (Levaquin) 750 mg PO Q24H [facility] Last Admin: 08/10/19 09:16 Dose: 750 mg Loperamide HCl (Imodium) 2 mg PO QID PRN PRN Reason: DIARRHEA Lorazepam (Ativan) 0.5 mg IVPUSH Q4H PRN PRN Reason: Anxiety Last Admin: 08/10/19 01:59 Dose: 0.5 mg Nortriptyline HCl (Nortriptyline) 50 mg PO BEDTIME [facility] Last Admin: 08/09/19 20:20 Dose: 50 mg Ondansetron HCl (Zofran Odt) 4 mg PO Q6H PRN PRN Reason: Nausea able to take PO Ondansetron HCl (Zofran) 4 mg IV Q6H PRN PRN Reason: Nausea/Vomiting Pantoprazole Sodium (Protonix) 40 mg PO DAILY@0730 [facility] Last Admin: 08/10/19 07:31 Dose: 40 mg Potassium Chloride (Klor-Con M20) 40 meq PO BID [facility] Last Admin: 08/10/19 09:15 Dose: 40 meq Theophylline (Theophylline Anhydrous) 300 mg PO DAILY [facility] Last Admin: 08/10/19 09:15 Dose: 300 mg Warfarin Sodium (Coumadin) 2.5 mg PO DAILY@1300 [facility] Discontinued Medications Albuterol (Proventil Neb Soln) 2.5 mg NEB Q4H PRN PRN Reason: Shortness Of Breath/wheezing Albuterol/Ipratropium (Duoneb 3.0-0.5 Mg/3 Ml) Confirm Administered Dose 3 ml .ROUTE .STK-MED ONE Stop: 08/01/19 19:47 Last Admin: 08/01/19 21:39 Dose: Not Given Albuterol/Ipratropium (Duoneb 3.0-0.5 Mg/3 Ml) 3 ml NEB ONETIME ONE Stop: 08/01/19 19:48 Last Admin: 08/01/19 21:50 Dose: 3 ml Albuterol/Ipratropium (Duoneb 3.0-0.5 Mg/3 Ml) 3 ml NEB QIDRT [facility] Last Admin: 08/02/19 20:36 Dose: 3 ml Furosemide (Lasix) 40 mg IVPUSH ONETIME ONE Stop: 08/04/19 11:01 Last Admin: 08/04/19 11:05 Dose: 40 mg Furosemide (Lasix) 20 mg IVPUSH ONETIME ONE Stop: 08/05/19 13:46 Last Admin: 08/05/19 13:47 Dose: 20 mg Furosemide (Lasix) 20 mg IVPUSH ONETIME ONE Stop: 08/06/19 11:31 Last Admin: 08/06/19 12:25 Dose: 20 mg Furosemide (Lasix) 20 mg IVPUSH Q12H [facility] Last Admin: 08/08/19 09:26 Dose: 20 mg Heparin Sodium (Porcine) (Heparin Sodium) Confirm Administered Dose 5,000 units .ROUTE .STK-MED ONE Stop: 08/01/19 20:13 Last Admin: 08/01/19 21:39 Dose: Not Given Heparin Sodium (Porcine) (Heparin Sodium) Confirm Administered Dose 5,000 units .ROUTE .STK-MED ONE Stop: 08/01/19 20:15 Last Admin: 08/01/19 21:39 Dose: Not Given Heparin Sodium (Porcine) (Heparin Sodium) Confirm Administered Dose 5,000 units .ROUTE .[facility] ONE Stop: 08/02/19 22:16 Last Admin: 08/03/19 00:35 Dose: Not Given Sodium Chloride (Normal Saline) Confirm Administered Dose 500 mls @ as directed .ROUTE .[facility] ONE Stop: 08/01/19 20:13 Last Admin: 08/01/19 21:40 Dose: Not Given Levofloxacin/Dextrose 750 mg/ (Premix) 150 mls @ 100 mls/hr IV ONETIME ONE Stop: 08/01/19 22:13 Last Admin: 08/01/19 21:00 Dose: 100 mls/hr Vancomycin HCl 1 gm/ Sodium (Chloride) 250 mls @ 150 mls/hr IV ONETIME ONE Stop: 08/01/19 22:22 Last Admin: 08/01/19 23:26 Dose: Not Given Propofol (Diprivan 100 Ml) Confirm Administered Dose 100 mls @ as directed .ROUTE .[facility] ONE Stop: 08/01/19 21:24 Last Admin: 08/01/19 23:04 Dose: Not Given Potassium Chloride/Dextrose/Sod Cl (D5 Ns With 20 Meq Kcl) 1,000 mls @ 100 mls/ hr IV ASDIRECTED [facility] Last Admin: 08/02/19 20:17 Dose: 100 mls/hr Heparin Sodium (Porcine) 5,000 (units/ Sodium Chloride) 501 mls @ 1 mls/hr IV ASDIRECTED [facility] Last Admin: 08/02/19 07:45 Dose: 1 mls/hr Levofloxacin/Dextrose 750 mg/ (Premix) 150 mls @ 100 mls/hr IV Q48H [facility] Last Admin: 08/07/19 20:24 Dose: 100 mls/hr Piperacillin Sod/Tazobactam (Sod 3.375 gm/ Sodium Chloride) 50 mls @ 100 mls/ hr IV Q6H [facility] Last Admin: 08/02/19 03:52 Dose: 100 mls/hr Propofol (Diprivan 100 Ml) 100 mls @ 2.041 mls/hr IV TITRATE [facility]; Protocol Last Titration: 08/02/19 09:38 Dose: 0 mcg/kg/min, 0 mls/hr Piperacillin/Tazobactam/ (Dextrose 3.375 gm/ Premix) 50 mls @ 100 mls/hr IV Q6H [facility] Last Admin: 08/05/19 04:09 Dose: 100 mls/hr Propofol (Diprivan 100 Ml) 100 mls @ 1.969 mls/hr IV TITRATE [facility]; Protocol Last Titration: 08/05/19 06:50 Dose: 22 mcg/kg/min, 8.664 mls/hr Heparin Sodium (Porcine) 5,000 (units/ Sodium Chloride) 501 mls @ 1 mls/hr IV ASDIRECTED [facility] Last Admin: 08/02/19 22:30 Dose: 1 mls/hr Potassium Chloride/Dextrose/Sod Cl (D5 Ns With 20 Meq Kcl) 1,000 mls @ 75 mls/ hr IV ASDIRECTED [facility] Last Admin: 08/04/19 01:44 Dose: 75 mls/hr Phytonadione 1 mg/ Sodium (Chloride) 50.5 mls @ 100 mls/hr IV ONETIME ONE Stop: 08/03/19 10:30 Last Admin: 08/03/19 09:48 Dose: 100 mls/hr Sodium Chloride (Normal Saline) 500 mls @ 500 mls/hr IV .[facility]OLUS ONE Stop: 08/03/19 18:50 Last Admin: 08/03/19 18:02 Dose: 500 mls/hr Sodium Chloride (Normal Saline) 75 mls @ 3 mls/sec IV ASDIRECTED [facility] Stop: 08/04/19 09:31 Potassium Chloride/Dextrose/Sod Cl (D5 Ns With 20 Meq Kcl) 1,000 mls @ 25 mls/ hr IV ASDIRECTED [facility] Last Admin: 08/04/19 22:00 Dose: 25 mls/hr Potassium Chloride 20 meq/Lidocaine HCl 2 ml/ Sodium Chloride 112 mls @ 56 mls/ hr IV Q2H [facility] Stop: 08/05/19 13:59 Last Admin: 08/05/19 12:47 Dose: 56 mls/hr Levofloxacin/Dextrose 750 mg/ (Premix) 150 mls @ 100 mls/hr IV Q24H [facility] Iopamidol (Isovue-300 (61%)) 100 ml IV ONETIME ONE Stop: 08/04/19 09:23 Last Admin: 08/04/19 10:37 Dose: 100 ml Levalbuterol HCl (Xopenex) Confirm Administered Dose 1.25 mg .ROUTE .STK-MED ONE Stop: 08/02/19 21:33 Last Admin: 08/02/19 23:11 Dose: Not Given Levalbuterol HCl (Xopenex) 1.25 mg NEB ONETIME ONE Stop: 08/02/19 21:21 Last Admin: 08/02/19 21:15 Dose: 1.25 mg Lorazepam (Ativan) 1 mg IVPUSH ONETIME ONE Stop: 08/02/19 21:11 Last Admin: 08/02/19 21:07 Dose: 1 mg Methylprednisolone Sodium Succinate (Solu-Medrol) 125 mg IVPUSH ONETIME ONE Stop: 08/01/19 19:53 Last Admin: 08/01/19 19:42 Dose: 125 mg Methylprednisolone Sodium Succinate (Solu-Medrol) 62.5 mg IVPUSH Q6H [facility] Last Admin: 08/02/19 08:27 Dose: 62.5 mg Methylprednisolone Sodium Succinate (Solu-Medrol) 62.5 mg IVPUSH Q8H [facility] Last Admin: 08/03/19 08:21 Dose: 62.5 mg Methylprednisolone Sodium Succinate (Solu-Medrol) 40 mg IV Q8H [facility] Last Admin: 08/05/19 08:16 Dose: 40 mg Midazolam HCl (Versed 1 Mg/Ml) Confirm Administered Dose 4 mg .ROUTE .STK-MED ONE Stop: 08/01/19 20:19 Last Admin: 08/01/19 21:42 Dose: Not Given Midazolam HCl (Versed 1 Mg/Ml) Confirm Administered Dose 5 mg .ROUTE .STK-MED ONE Stop: 08/01/19 20:44 Last Admin: 08/01/19 21:43 Dose: Not Given Midazolam HCl (Versed 1 Mg/Ml) 4 mg IVPUSH ONETIME ONE Stop: 08/01/19 21:43 Last Admin: 08/01/19 20:25 Dose: 4 mg Midazolam HCl (Versed 1 Mg/Ml) 3 mg IVPUSH ONETIME ONE Stop: 08/01/19 20:41 Last Admin: 08/01/19 20:40 Dose: 3 mg Morphine Sulfate (Morphine) 2 mg IVPUSH Q2H PRN PRN Reason: Pain (severe 7-10) Last Admin: 08/05/19 23:27 Dose: 2 mg Pantoprazole Sodium (Protonix Iv) 40 mg IV Q24H [facility] Last Admin: 08/04/19 21:35 Dose: 40 mg Potassium Chloride (Klor-Con M20) 40 meq PO ONETIME ONE Stop: 08/06/19 11:31 Last Admin: 08/06/19 12:25 Dose: 40 meq Propofol (Diprivan 20 Ml) Confirm Administered Dose 200 mg .ROUTE .STK-MED ONE Stop: 08/01/19 19:59 Propofol (Diprivan 20 Ml) Confirm Administered Dose 200 mg .ROUTE .STK-MED ONE Stop: 08/02/19 22:47 Sodium Chloride (Saline Flush) 10 ml FLUSH ONETIME [facility] Stop: 08/04/19 09:31 Succinylcholine Chloride (Quelicin) Confirm Administered Dose 200 mg .ROUTE .STK -MED ONE Stop: 08/01/19 19:59 Succinylcholine Chloride (Quelicin) Confirm Administered Dose 200 mg .ROUTE .STK -MED ONE Stop: 08/01/19 20:01 Succinylcholine Chloride (Quelicin) Confirm Administered Dose 200 mg .ROUTE .STK -MED ONE Stop: 08/02/19 22:47 Warfarin Sodium (Coumadin) 5 mg PO DAILY@1300 [facility] Last Admin: 08/09/19 14:27 Dose: 5 mg - Exam Quality Assessment: Reports: DVT Prophylaxis. Denies: Supplemental Oxygen General: Reports: Alert, Oriented, Cooperative, No Acute Distress Lungs: Reports: Clear to Auscultation, Normal Respiratory Effort Cardiovascular: Reports: Regular Rate, Regular Rhythm, No Murmurs GI/Abdominal Exam: Soft, Non-Tender, No Organomegaly, No Distention Extremities: Non-Tender, No Pedal Edema
[2019-08-10 11:42] VITALS: BP 93/69; PULSE 45
[2019-08-10] MEDS ORDERED: Warfarin 2.5 MG Tab PO SCH (13:00)
== END 2019-08-10 13:43 | disposition home or self-care (01) | DRG 208 ==
LOC: JP.ED 19:36 → JP.ICU 21:20 → JP.MS 08-07 10:57
PROVIDERS: ADMIT Internal Medicine; ATTEND Internal Medicine
PROC: 5A1945Z Respiratory Ventilation, 24-96 Consecutive Hours (ICD-10-PCS; principal; 2019-08-01)
PROC: 0BH17EZ Insertion of Endotracheal Airway into Trachea, Via Natural or Artificial Opening (ICD-10-PCS; 2019-08-01)
PROC: 4A133B1 Monitoring of Arterial Pressure, Peripheral, Percutaneous Approach (ICD-10-PCS; 2019-08-01)
PROC: 4A133J1 Monitoring of Arterial Pulse, Peripheral, Percutaneous Approach (ICD-10-PCS; 2019-08-01)
PROC: 0W993ZZ Drainage of Right Pleural Cavity, Percutaneous Approach (ICD-10-PCS; 2019-08-01)
PROC: 03HY32Z Insertion of Monitoring Device into Upper Artery, Percutaneous Approach (ICD-10-PCS; 2019-08-04)
DX: J96.01 Acute respiratory failure with hypoxia (principal); J44.9 Chronic obstructive pulmonary disease, unspecified; J96.90 Respiratory failure, unspecified, unspecified whether with hypoxia or hypercapnia; I11.0 Hypertensive heart disease with heart failure; I50.9 Heart failure, unspecified; J18.9 Pneumonia, unspecified organism; I50.23 Acute on chronic systolic (congestive) heart failure; J44.0 Chronic obstructive pulmonary disease with (acute) lower respiratory infection; J44.1 Chronic obstructive pulmonary disease with (acute) exacerbation; E87.2 Acidosis; J90 Pleural effusion, not elsewhere classified; J96.02 Acute respiratory failure with hypercapnia; Z86.718 Personal history of other venous thrombosis and embolism; D50.9 Iron deficiency anemia, unspecified; Z85.3 Personal history of malignant neoplasm of breast; I48.91 Unspecified atrial fibrillation; Z79.01 Long term (current) use of anticoagulants; Z79.899 Other long term (current) drug therapy; Z88.6 Allergy status to analgesic agent; Z88.2 Allergy status to sulfonamides; Z88.8 Allergy status to other drugs, medicaments and biological substances; E78.00 Pure hypercholesterolemia, unspecified; K52.9 Noninfective gastroenteritis and colitis, unspecified; K21.9 Gastro-esophageal reflux disease without esophagitis; Z86.010 Personal history of colon polyps; G89.29 Other chronic pain; M54.9 Dorsalgia, unspecified; M19.90 Unspecified osteoarthritis, unspecified site; Z86.73 Personal history of transient ischemic attack (TIA), and cerebral infarction without residual deficits; Z87.440 Personal history of urinary (tract) infections; E66.9 Obesity, unspecified; M85.80 Other specified disorders of bone density and structure, unspecified site; D64.9 Anemia, unspecified; Z98.49 Cataract extraction status, unspecified eye; Z90.710 Acquired absence of both cervix and uterus; Z90.49 Acquired absence of other specified parts of digestive tract; Z96.659 Presence of unspecified artificial knee joint; Z90.10 Acquired absence of unspecified breast and nipple; Z68.27 Body mass index [BMI] 27.0-27.9, adult
CPT/HCPCS: 31500; 36415; 36600; 51702; 71045; 71260; 80048; 80053; 81001; 82803; 83605; 83690; 83735; 83880; 84145; 84484; 85025; 85027; 85379; 85610; 86140; 87040; 87070; 87205; 87804; 87804-59; 93005; 93010; 93306; 94002; 94003; 94640; 94667; 94668; 94799; 96365; 96375; 97161-GP; 97530-GP; 97535-GP; 99285; 99285-25; A9270-GY; C9113; J0330; J1644; J1650; J1940; J1956; J2001; J2060; J2250; J2270; J2543; J2704; J2920; J2930; J3430; J3480; J7040; J7050; J7612-GY; J7620-GY; Q9967

== ENCOUNTER 2021-09-08 08:42 | Inpatient (IN) | payer MEDICARE, BC ==
[2021-09-08 09:55] LABS: CORONAVIRUS COVID-19 NAA NEGATIVE (NEGATIVE)
[2021-09-08] MEDS ORDERED: Furosemide 40 MG/4 ML VIAL IVPUSH ONE (11:22)
[2021-09-08] MEDS ORDERED: Sodium Chloride 0.9% 10 ML Syringe FLUSH PRN ×2 (11:22→17:30)
[2021-09-08] MEDS ORDERED: Nitroglycerin 0.4 MG Tab.SL SL ONE (11:23)
[2021-09-08] MEDS ORDERED: Nitroglycerin 0.4 MG Tab.SL ONE (13:38)
[2021-09-08] MEDS ORDERED: Potassium Chloride 20 MEQ Tab.ER PO ONE ×2 (15:51→21:00)
[2021-09-08] MEDS ORDERED: Warfarin 2.5 MG Tab PO SCH (17:30)
[2021-09-08] MEDS ORDERED: Albuterol 0.083% 2.5 MG/3 ML Neb Soln NEB PRN (17:30)
[2021-09-08] MEDS ORDERED: Fluticasone NASAL Spray 16 GM Bottle NAS PRN (17:30)
[2021-09-08] MEDS ORDERED: Ondansetron 4 MG/2 ML SDV IV PRN (17:30)
[2021-09-08] MEDS ORDERED: Albuterol 8 GM Inhaler INH PRN (17:30)
[2021-09-08] MEDS: methylPREDNISolone Sodium Succinate 40 MG/1 ML SDV IVPUSH SCH (18:19)
[2021-09-08] MEDS: Acetaminophen 325 MG Tab PO PRN (20:12)
[2021-09-08] MEDS: Nortriptyline 25 MG Cap PO SCH (22:25)
[2021-09-08] MEDS: Albuterol/Ipratropium 3.0-0.5 MG/3 ML Neb Soln NEB SCH (22:25)
[2021-09-08] MEDS: Carvedilol 12.5 MG Tab PO SCH (22:26)
[2021-09-09] MEDS: methylPREDNISolone Sodium Succinate 40 MG/1 ML SDV IVPUSH SCH ×3 (02:27→18:12)
[2021-09-09] MEDS: Albuterol/Ipratropium 3.0-0.5 MG/3 ML Neb Soln NEB SCH ×4 (06:14→20:05)
[2021-09-09] MEDS: Theophylline 100 MG Cap.ER PO SCH (08:19)
[2021-09-09] MEDS: Carvedilol 12.5 MG Tab PO SCH ×2 (08:19→20:45)
[2021-09-09] MEDS: Hypromellose 0.3% Ophth Soln 15 ML Bottle EYEBOTH SCH (08:22)
[2021-09-09] MEDS ORDERED: Hypromellose 0.3% Ophth Soln 15 ML Bottle EYEBOTH SCH (09:00)
[2021-09-09] MEDS ORDERED: Warfarin 5 MG Tab PO SCH (13:00)
[2021-09-09] MEDS: Acetaminophen 325 MG Tab PO PRN ×2 (15:27→20:47)
[2021-09-09] MEDS: Nortriptyline 25 MG Cap PO SCH (20:46)
[2021-09-10] MEDS: methylPREDNISolone Sodium Succinate 40 MG/1 ML SDV IVPUSH SCH ×3 (02:33→17:30)
[2021-09-10] MEDS: Albuterol/Ipratropium 3.0-0.5 MG/3 ML Neb Soln NEB SCH ×4 (07:19→20:13)
[2021-09-10] MEDS: Hypromellose 0.3% Ophth Soln 15 ML Bottle EYEBOTH SCH (08:33)
[2021-09-10] MEDS: Carvedilol 12.5 MG Tab PO SCH ×2 (08:33→20:12)
[2021-09-10] MEDS: Theophylline 100 MG Cap.ER PO SCH (08:33)
[2021-09-10] MEDS ORDERED: guaiFENesin 600 MG Tab.ER PO SCH (11:30)
[2021-09-10] MEDS ORDERED: guaiFENesin 600 MG Tab.ER PO PRN (12:00)
[2021-09-10] MEDS: Cetirizine 10 MG Tab PO SCH (12:00)
[2021-09-10] MEDS: Acetaminophen 325 MG Tab PO PRN ×2 (15:00→23:46)
[2021-09-10] MEDS: Nortriptyline 25 MG Cap PO SCH (20:12)
[2021-09-11] MEDS: methylPREDNISolone Sodium Succinate 40 MG/1 ML SDV IVPUSH SCH ×2 (03:08→10:19)
[2021-09-11] MEDS: Albuterol/Ipratropium 3.0-0.5 MG/3 ML Neb Soln NEB SCH ×2 (07:42→11:03)
[2021-09-11] MEDS: Acetaminophen 325 MG Tab PO PRN (08:49)
[2021-09-11] MEDS: Hypromellose 0.3% Ophth Soln 15 ML Bottle EYEBOTH SCH (08:52)
[2021-09-11] MEDS: Carvedilol 12.5 MG Tab PO SCH (08:52)
[2021-09-11] MEDS: Cetirizine 10 MG Tab PO SCH (08:53)
[2021-09-11 11:05] VITALS: PULSE 84
[2021-09-11 11:27] VITALS: BP 158/92
[2021-09-11] MEDS ORDERED: Warfarin 5 MG Tab PO SCH ×2 (13:00→16:00)
[2021-09-11] MEDS ORDERED: Non-Formulary Medication 1 Each (Loperamide Hcl [Imodium A-D] 2 MG Tablet) PO PRN (15:46)
[2021-09-11] MEDS ORDERED: ACETAMINOPHEN 500 MG PO PRN (15:48)
[2021-09-11] MEDS ORDERED: CALCIUM CARB PO SCH (21:00)
[2021-09-11] MEDS ORDERED: LACTOBACILLUS RHAMNOSUS GG PO SCH (21:00)
[2021-09-11] MEDS ORDERED: CITRATE PO SCH (21:00)
[2021-09-11] MEDS ORDERED: [UNRECOGNIZED DRUG - OTHER] PO SCH (21:00)
[2021-09-11] MEDS ORDERED: VIT D3 PO SCH (21:00)
[2021-09-12] MEDS ORDERED: Non-Formulary Medication 1 Each (Folic Acid [Folic Acid] 1 MG Tablet) PO SCH (09:00)
[2021-09-12] MEDS ORDERED: [UNRECOGNIZED DRUG - OTHER] PO SCH (09:00)
[2021-09-12] MEDS ORDERED: BIOTIN 1000 MCG PO SCH (09:00)
== END 2021-09-11 12:41 | disposition home or self-care (01) | DRG 291 ==
LOC: JP.ED 08:42 → JP.MS 15:51
PROVIDERS: ADMIT Hospitalist; ATTEND Hospitalist
DX: I50.23 Acute on chronic systolic (congestive) heart failure (principal); I11.0 Hypertensive heart disease with heart failure; J96.01 Acute respiratory failure with hypoxia; J44.9 Chronic obstructive pulmonary disease, unspecified; K50.90 Crohn's disease, unspecified, without complications; J96.02 Acute respiratory failure with hypercapnia; J44.1 Chronic obstructive pulmonary disease with (acute) exacerbation; E78.00 Pure hypercholesterolemia, unspecified; R20.2 Paresthesia of skin; D64.9 Anemia, unspecified; E61.1 Iron deficiency; Z85.3 Personal history of malignant neoplasm of breast; K21.9 Gastro-esophageal reflux disease without esophagitis; M54.9 Dorsalgia, unspecified; Z88.8 Allergy status to other drugs, medicaments and biological substances; G89.29 Other chronic pain; Z20.822 Contact with and (suspected) exposure to COVID-19; M19.90 Unspecified osteoarthritis, unspecified site; E66.9 Obesity, unspecified; Z96.659 Presence of unspecified artificial knee joint; Z88.2 Allergy status to sulfonamides; Z88.1 Allergy status to other antibiotic agents; Z79.01 Long term (current) use of anticoagulants; Z79.899 Other long term (current) drug therapy; Z86.718 Personal history of other venous thrombosis and embolism; Z86.73 Personal history of transient ischemic attack (TIA), and cerebral infarction without residual deficits; Z87.440 Personal history of urinary (tract) infections; Z90.710 Acquired absence of both cervix and uterus; Z90.49 Acquired absence of other specified parts of digestive tract; Z68.29 Body mass index [BMI] 29.0-29.9, adult
CPT/HCPCS: 0241U; 36415; 71046; 80048; 80053; 80198; 83605; 83880; 84145; 84484; 85025; 85610; 93306; 94640; 96374; 97116; 97162; 97530; 99285; 99283; A9270-GY; J1940; J2920; J7620-GY

== ENCOUNTER 2021-11-27 11:09 | Emergency (ER) | payer MEDICARE, BC ==
[2021-11-27] MEDS ORDERED: Albuterol/Ipratropium 3.0-0.5 MG/3 ML Neb Soln NEB ONE (11:22)
[2021-11-27] MEDS ORDERED: Furosemide 40 MG/4 ML VIAL IVPUSH ONE (11:55)
[2021-11-27] MEDS ORDERED: Nitroglycerin/D5W 25 MG/250 ML BOTTLE IV SCH (12:00)
[2021-11-27 12:07] LABS: TROPONIN I HIGH SENSITIVITY 43.9 pg/mL (<=60.3)
[2021-11-27] MEDS ORDERED: Morphine 2 MG/ML SYRINGE IVPUSH ONE (12:16)
[2021-11-27] MEDS ORDERED: LORazepam 2 MG/ML SDV IVPUSH ONE (12:16)
[2021-11-27 13:38] LABS: CORONAVIRUS COVID-19 NAA NEGATIVE (NEGATIVE)
[2021-11-27 14:28] VITALS: BP 105/68; PULSE 83
== END 2021-11-27 16:30 ==
LOC: JP.ED 11:09
DX: I11.0 Hypertensive heart disease with heart failure (principal); I50.23 Acute on chronic systolic (congestive) heart failure; E78.00 Pure hypercholesterolemia, unspecified; I25.10 Atherosclerotic heart disease of native coronary artery without angina pectoris; J44.9 Chronic obstructive pulmonary disease, unspecified; E66.9 Obesity, unspecified; Z68.29 Body mass index [BMI] 29.0-29.9, adult; Z88.2 Allergy status to sulfonamides; Z88.8 Allergy status to other drugs, medicaments and biological substances; Z79.01 Long term (current) use of anticoagulants; Z86.73 Personal history of transient ischemic attack (TIA), and cerebral infarction without residual deficits; Z79.899 Other long term (current) drug therapy; Z20.822 Contact with and (suspected) exposure to COVID-19
CPT/HCPCS: 0241U; 36415; 71045; 80053; 84484; 85025; 94640; 96365; 96366; 96375; 99285; J1940; J2270; J3490; J7620

== ENCOUNTER 2023-05-06 15:18 | Inpatient (IN) | payer MEDICARE, BC ==
[2023-05-06] MEDS ORDERED: Sodium Chloride 0.9% 10 ML Syringe FLUSH PRN (15:46)
[2023-05-06 15:51] LABS: BASOPHILS ABSOLUTE AUTO 0.05 K/uL (0.00-0.10); BASOPHILS PERCENT AUTO 0.6 % (0.1-1.3); EOSINOPHILS ABSOLUTE AUTO 0.53 K/uL (0.00-0.40); HEMATOCRIT 34.9 % (34.3-46.0); HEMOGLOBIN 11.5 g/dL (11.2-15.5); IMMATURE GRAN ABSOLUTE AUTO 0.05 K/uL (0.00-0.23); IMMATURE GRAN PERCENT AUTO 0.6 % (0.0-0.7); LYMPHOCYTES ABSOLUTE AUTO 1.33 K/uL (0.8-3.3); MEAN CORPUSCULAR HEMOGLOBIN 28.5 pg (31.6-35.5); MEAN CORPUSCULAR VOLUME 86.6 fL (81.4-99.0); MONOCYTES ABSOLUTE AUTO 0.92 K/uL (0.20-0.90); MONOCYTES PERCENT AUTO 10.4 % (3.3-12.6); NEUTROPHILS ABSOLUTE AUTO 5.98 K/uL (1.0-7.6); NEUTROPHILS PERCENT AUTO 67.4 % (40.0-78.1); PLATELET COUNT,PLT 258 K/uL (130-375); RED BLOOD CELL COUNT 4.03 M/uL (3.77-5.24); WHITE BLOOD CELL COUNT,WBC 8.9 K/uL (3.2-11.0)
[2023-05-06 15:52] LABS: BASE EXCESS VENOUS 1.7 mm/L; BICARBONATE,VENOUS 25.5 mmol/L; CARBOXYHEMOGLOBIN 2.2 % (0.0-1.6); METHEMOGLOBIN 0.5 %; O2 SATURATION VENOUS 26.6; OXYHEMOGLOBIN 25.9 %; PCO2 VENOUS 38.7 mm/Hg; PH,VENOUS 7.434 (7.350-7.450); PO2 VENOUS 19.5 mm/Hg
[2023-05-06 15:55] LABS: LACTIC ACID 1.8 mmol/L (0.4-2.0)
[2023-05-06 16:00] LABS: INR 2.5; PROTHROMBIN TIME 24.2 sec (9.2-10.6); PTT,PARTIAL THROMBOPLSTIN TIME 38.8 sec (21.8-27.3)
[2023-05-06 16:11] LABS: BLOOD UREA NITROGEN,BUN 33 mg/dL (7-18); CALCIUM 9.4 mg/dL (8.5-10.1); CARBON DIOXIDE,CO2 27 mmol/L (21-32); CHLORIDE,CL 96 mmol/L (100-108); CREATININE 1.7 mg/dL (0.6-1.0); ESTIMATED GFR 29 mL/min (>60); GLUCOSE RANDOM 103 mg/dL (74-106); POTASSIUM,K 4.2 mmol/L (3.6-5.2); SODIUM,NA 132 mmol/L (140-148); TROPONIN I HIGH SENSITIVITY 38.4 pg/mL (<=60.3)
[2023-05-06 16:12] LABS: ANION GAP 13.2 mmol/L (5.0-14.0)
[2023-05-06 16:42] LABS: BASE EXCESS ARTERIAL 0.6 mm/L; BICARBONATE,ARTERIAL 23.1 mmol/L (22.0-26.0); CARBOXYHEMOGLOBIN 1.9 % (0.0-1.6); METHEMOGLOBIN 0.9 %; O2 SATURATION ARTERIAL 96.2 % (95.0-98.0); OXYHEMOGLOBIN 93.5 %; PO2 ARTERIAL 76.3 mmHg (75.0-100.0); TOTAL HEMOGLOBIN 10.8 g/dL (12.0-16.0)
[2023-05-06 16:48] LABS: CORONAVIRUS COVID-19 NAA NEGATIVE (NEGATIVE); INFLUENZA A NAA NEGATIVE (NEGATIVE); INFLUENZA B NAA NEGATIVE (NEGATIVE); RESPIRATORY SYNCYTIAL VIR NAA NEGATIVE (NEGATIVE)
[2023-05-06] MEDS ORDERED: Sodium Chloride 0.9% 1,000 ML IV SCH (17:45)
[2023-05-06] MEDS ORDERED: oxyCODONE 5 MG Tab PO PRN (19:40)
[2023-05-06] MEDS ORDERED: Fluticasone NASAL Spray 16 GM Bottle NASBOTH PRN (19:40)
[2023-05-06] MEDS ORDERED: Loperamide 2 MG Cap PO PRN (19:40)
[2023-05-06] MEDS ORDERED: Albuterol 0.083% 2.5 MG/3 ML Neb Soln NEB PRN (19:40)
[2023-05-06] MEDS: Sodium Chloride 0.9% 1,000 ML IV SCH (20:11)
[2023-05-06] MEDS ORDERED: Warfarin 5 MG Tab PO SCH (20:23)
[2023-05-06] MEDS: Acetaminophen 325 MG Tab PO PRN (20:44)
[2023-05-06] MEDS: Nortriptyline 25 MG Cap PO SCH (20:45)
[2023-05-06] MEDS: Lactobacillus Rhamnosus GG (Probiotic) Cap PO SCH ×2 (20:46→23:10)
[2023-05-06] MEDS: Calcium Carbonate/Vitamin D3 1500 MG-400 Units Tab PO SCH (20:46)
[2023-05-06] MEDS: Albuterol/Ipratropium 3.0-0.5 MG/3 ML Neb Soln NEB SCH (20:47)
[2023-05-07 04:45] LABS: BASOPHILS ABSOLUTE AUTO 0.03 K/uL (0.00-0.10); BASOPHILS PERCENT AUTO 0.4 % (0.1-1.3); EOSINOPHILS ABSOLUTE AUTO 0.66 K/uL (0.00-0.40); EOSINOPHILS PERCENT AUTO 8.5 % (0.0-5.4); HEMOGLOBIN 9.6 g/dL (11.2-15.5); IMMATURE GRAN ABSOLUTE AUTO 0.04 K/uL (0.00-0.23); IMMATURE GRAN PERCENT AUTO 0.5 % (0.0-0.7); LYMPHOCYTES ABSOLUTE AUTO 1.29 K/uL (0.8-3.3); LYMPHOCYTES PERCENT AUTO 16.5 % (11.4-47.7); MEAN CORPUSCULAR HEMOGLOBIN 28.9 pg (31.6-35.5); MEAN CORPUSCULAR HGB CONC 33.1 g/dL (31.6-35.5); MEAN CORPUSCULAR VOLUME 87.3 fL (81.4-99.0); MONOCYTES ABSOLUTE AUTO 0.87 K/uL (0.20-0.90); MONOCYTES PERCENT AUTO 11.2 % (3.3-12.6); NEUTROPHILS ABSOLUTE AUTO 4.91 K/uL (1.0-7.6); NEUTROPHILS PERCENT AUTO 62.9 % (40.0-78.1); PLATELET COUNT,PLT 191 K/uL (130-375); RED BLOOD CELL COUNT 3.32 M/uL (3.77-5.24); WHITE BLOOD CELL COUNT,WBC 7.8 K/uL (3.2-11.0)
[2023-05-07 05:02] LABS: CALCIUM 8.5 mg/dL (8.5-10.1); CREATININE 1.4 mg/dL (0.6-1.0); EST CRCL DRUG DOSING (CG) 21.77 mL/min; POTASSIUM,K 4.4 mmol/L (3.6-5.2)
[2023-05-07 05:10] LABS: ANION GAP 13.4 mmol/L (5.0-14.0)
[2023-05-07] MEDS: Sodium Chloride 0.9% 1,000 ML IV SCH (06:06)
[2023-05-07] MEDS: Albuterol/Ipratropium 3.0-0.5 MG/3 ML Neb Soln NEB SCH ×4 (07:04→20:06)
[2023-05-07] MEDS: Acetaminophen 325 MG Tab PO PRN ×2 (07:30→15:40)
[2023-05-07] MEDS: Calcium Carbonate/Vitamin D3 1500 MG-400 Units Tab PO SCH ×2 (08:48→20:02)
[2023-05-07] MEDS: Spironolactone 25 MG Tab PO SCH (08:48)
[2023-05-07] MEDS: Formoterol/Mometasone 100-5 MCG 8.8 GM Inhaler IH SCH ×2 (08:49→20:02)
[2023-05-07] MEDS: Furosemide 40 MG Tab PO SCH (08:50)
[2023-05-07] MEDS: Lactobacillus Rhamnosus GG (Probiotic) Cap PO SCH ×2 (08:50→20:01)
[2023-05-07] MEDS: Hypromellose 0.3% Ophth Soln 15 ML Bottle EYEBOTH SCH (08:50)
[2023-05-07] MEDS: Ezetimibe 10 MG Tab PO SCH (08:50)
[2023-05-07] MEDS: Vitamin B Complex Tab PO SCH (08:50)
[2023-05-07] MEDS: Folic Acid 1 MG Tab PO SCH (08:50)
[2023-05-07] MEDS ORDERED: FLU (Fluad Quad) 2023-24(65UP)/MF59C/PF 60 MCG/0.5 ML Syringe IM ONE (09:00)
[2023-05-07] MEDS ORDERED: Formoterol/Mometasone 100-5 MCG 8.8 GM Inhaler IH SCH (09:00)
[2023-05-07] MEDS ORDERED: Hypromellose 0.3% Ophth Soln 15 ML Bottle EYEBOTH SCH (09:00)
[2023-05-07 09:01] LABS: INR 2.6; PROTHROMBIN TIME 25.1 sec (9.2-10.6)
[2023-05-07] MEDS: Metoprolol Succinate 50 MG Tab.ER PO SCH (10:04)
[2023-05-07] MEDS: Lisinopril 2.5 MG Tab PO SCH (10:04)
[2023-05-07] MEDS: BIOTIN 1000 MCG PO SCH (14:16)
[2023-05-07] MEDS: methylPREDNISolone Sodium Succinate 40 MG/1 ML SDV IVPUSH SCH ×2 (15:25→23:59)
[2023-05-07] MEDS: Doxycycline 100 MG in Sodium Chloride 0.9% 100 ML IV SCH (15:26)
[2023-05-07] MEDS: cefTRIAXone 1 GM in Sodium Chloride 0.9% 50 ML IV SCH (17:17)
[2023-05-07] MEDS ORDERED: Warfarin 2.5 MG Tab PO SCH (18:00)
[2023-05-07] MEDS: Nortriptyline 25 MG Cap PO SCH (20:02)
[2023-05-08] MEDS: Doxycycline 100 MG in Sodium Chloride 0.9% 100 ML IV SCH ×2 (02:29→14:31)
[2023-05-08 06:16] LABS: BASOPHILS PERCENT AUTO 0.3 % (0.1-1.3); HEMATOCRIT 28.5 % (34.3-46.0); HEMOGLOBIN 9.4 g/dL (11.2-15.5); IMMATURE GRAN ABSOLUTE AUTO 0.11 K/uL (0.00-0.23); IMMATURE GRAN PERCENT AUTO 1.5 % (0.0-0.7); LYMPHOCYTES PERCENT AUTO 6.8 % (11.4-47.7); MEAN CORPUSCULAR HEMOGLOBIN 28.9 pg (31.6-35.5); MEAN CORPUSCULAR VOLUME 87.7 fL (81.4-99.0); MONOCYTES PERCENT AUTO 2.7 % (3.3-12.6); NEUTROPHILS ABSOLUTE AUTO 6.48 K/uL (1.0-7.6); NEUTROPHILS PERCENT AUTO 88.7 % (40.0-78.1); PLATELET COUNT,PLT 189 K/uL (130-375); RED BLOOD CELL COUNT 3.25 M/uL (3.77-5.24); WHITE BLOOD CELL COUNT,WBC 7.3 K/uL (3.2-11.0)
[2023-05-08 06:26] LABS: CALCIUM 8.8 mg/dL (8.5-10.1); CREATININE 1.3 mg/dL (0.6-1.0); EST CRCL DRUG DOSING (CG) 23.44 mL/min; POTASSIUM,K 4.5 mmol/L (3.6-5.2)
[2023-05-08 06:38] LABS: ANION GAP 12.5 mmol/L (5.0-14.0)
[2023-05-08 06:47] LABS: BASOPHILS ABSOLUTE AUTO 0.02 K/uL (0.00-0.10)
[2023-05-08 06:57] LABS: INR 3.4; PROTHROMBIN TIME 32.3 sec (9.2-10.6)
[2023-05-08] MEDS: Albuterol/Ipratropium 3.0-0.5 MG/3 ML Neb Soln NEB SCH ×4 (07:05→20:23)
[2023-05-08] MEDS: Formoterol/Mometasone 100-5 MCG 8.8 GM Inhaler IH SCH ×2 (07:05→20:26)
[2023-05-08] MEDS: Furosemide 40 MG Tab PO SCH (08:51)
[2023-05-08] MEDS: Lactobacillus Rhamnosus GG (Probiotic) Cap PO SCH ×2 (08:51→20:26)
[2023-05-08] MEDS: methylPREDNISolone Sodium Succinate 40 MG/1 ML SDV IVPUSH SCH ×3 (08:51→23:57)
[2023-05-08] MEDS: Vitamin B Complex Tab PO SCH (08:52)
[2023-05-08] MEDS: Calcium Carbonate/Vitamin D3 1500 MG-400 Units Tab PO SCH ×2 (08:52→20:26)
[2023-05-08] MEDS: Folic Acid 1 MG Tab PO SCH (08:52)
[2023-05-08] MEDS: Lisinopril 2.5 MG Tab PO SCH (08:52)
[2023-05-08] MEDS: Ezetimibe 10 MG Tab PO SCH (08:52)
[2023-05-08] MEDS: Hypromellose 0.3% Ophth Soln 15 ML Bottle EYEBOTH SCH (08:52)
[2023-05-08] MEDS: Metoprolol Succinate 50 MG Tab.ER PO SCH (08:52)
[2023-05-08] MEDS: Spironolactone 25 MG Tab PO SCH (08:53)
[2023-05-08] MEDS: BIOTIN 1000 MCG PO SCH (08:53)
[2023-05-08] MEDS: Acetaminophen 325 MG Tab PO PRN ×2 (08:58→20:38)
[2023-05-08] MEDS: cefTRIAXone 1 GM in Sodium Chloride 0.9% 50 ML IV SCH (17:49)
[2023-05-08] MEDS ORDERED: Warfarin 5 MG Tab PO SCH (18:00)
[2023-05-08] MEDS: Nortriptyline 25 MG Cap PO SCH (20:26)
[2023-05-08] MEDS: Benzocaine/Cetylpyridinium/Menthol Lozenge MUCMEM PRN (21:39)
[2023-05-08] MEDS ORDERED: LORazepam 2 MG/ML SDV IVPUSH PRN (22:19)
[2023-05-08] MEDS: Morphine 2 MG/ML SYRINGE IVPUSH PRN (22:29)
[2023-05-09] MEDS: Morphine 2 MG/ML SYRINGE IVPUSH PRN ×6 (00:43→16:22)
[2023-05-09] MEDS ORDERED: Morphine 2 MG/ML SYRINGE IVPUSH ONE (01:21)
[2023-05-09] MEDS ORDERED: ALPRAZolam 0.25 MG Tab PO ONE (01:26)
[2023-05-09] MEDS: Doxycycline 100 MG in Sodium Chloride 0.9% 100 ML IV SCH (03:24)
[2023-05-09 04:45] LABS: HEMATOCRIT 30.5 % (34.3-46.0); MEAN CORPUSCULAR HEMOGLOBIN 28.9 pg (31.6-35.5); MEAN CORPUSCULAR HGB CONC 32.8 g/dL (31.6-35.5); MEAN CORPUSCULAR VOLUME 88.2 fL (81.4-99.0); RED BLOOD CELL COUNT 3.46 M/uL (3.77-5.24); WHITE BLOOD CELL COUNT,WBC 18.9 K/uL (3.2-11.0)
[2023-05-09 04:57] LABS: PROTHROMBIN TIME 46.5 sec (9.2-10.6)
[2023-05-09 05:06] LABS: INR 5.1
[2023-05-09 05:12] LABS: CALCIUM 9.3 mg/dL (8.5-10.1); CREATININE 1.6 mg/dL (0.6-1.0); EST CRCL DRUG DOSING (CG) 19.05 mL/min; POTASSIUM,K 5.1 mmol/L (3.6-5.2)
[2023-05-09 05:40] LABS: BASE EXCESS ARTERIAL -3.9 mm/L; BICARBONATE,ARTERIAL 20.3 mmol/L (22.0-26.0); CARBOXYHEMOGLOBIN 1.8 % (0.0-1.6); O2 SATURATION ARTERIAL 86.2 % (95.0-98.0); OXYHEMOGLOBIN 83.8 %; PCO2 ARTERIAL 35.7 mmHg (35.0-42.0); PO2 ARTERIAL 55.7 mmHg (75.0-100.0); TOTAL HEMOGLOBIN 10.3 g/dL (12.0-16.0)
[2023-05-09 05:47] LABS: ANION GAP 14.1 mmol/L (5.0-14.0); TROPONIN I HIGH SENSITIVITY 228.3 pg/mL (<=60.3)
[2023-05-09] MEDS ORDERED: Furosemide 20 MG/2 ML VIAL IVPUSH ONE ×2 (05:47→13:15)
[2023-05-09] MEDS ORDERED: Furosemide 20 MG/2 ML VIAL ONE (06:12)
[2023-05-09] MEDS: Albuterol/Ipratropium 3.0-0.5 MG/3 ML Neb Soln NEB SCH ×3 (07:12→14:53)
[2023-05-09] MEDS: Formoterol/Mometasone 100-5 MCG 8.8 GM Inhaler IH SCH (07:13)
[2023-05-09] MEDS ORDERED: predniSONE 20 MG Tab PO SCH (08:00)
[2023-05-09] MEDS: Vitamin B Complex Tab PO SCH (08:35)
[2023-05-09] MEDS: Lactobacillus Rhamnosus GG (Probiotic) Cap PO SCH (08:35)
[2023-05-09] MEDS: Folic Acid 1 MG Tab PO SCH (08:35)
[2023-05-09] MEDS: Calcium Carbonate/Vitamin D3 1500 MG-400 Units Tab PO SCH (08:35)
[2023-05-09] MEDS: Furosemide 40 MG Tab PO SCH (08:36)
[2023-05-09] MEDS: Spironolactone 25 MG Tab PO SCH (08:36)
[2023-05-09] MEDS: Lisinopril 2.5 MG Tab PO SCH (08:36)
[2023-05-09] MEDS: Hypromellose 0.3% Ophth Soln 15 ML Bottle EYEBOTH SCH (08:36)
[2023-05-09] MEDS: Ezetimibe 10 MG Tab PO SCH (08:36)
[2023-05-09] MEDS: BIOTIN 1000 MCG PO SCH (08:37)
[2023-05-09] MEDS: Metoprolol Succinate 50 MG Tab.ER PO SCH (08:37)
[2023-05-09] MEDS ORDERED: Meropenem 500 MG in Sodium Chloride 0.9% 100 ML IV SCH (09:15)
[2023-05-09] MEDS ORDERED: Levofloxacin/Dextrose 5%-Water 750 MG in Premix Bag 1 BAG IV SCH (09:30)
[2023-05-09 09:45] LABS: C-REACTIVE PROTEIN 3.99 mg/dL (0.0-0.3)
[2023-05-09 09:46] LABS: TROPONIN I HIGH SENSITIVITY 1247.2 pg/mL (<=60.3)
[2023-05-09] MEDS ORDERED: Phytonadione 5 MG Tab PO ONE (10:00)
[2023-05-09] MEDS ORDERED: Meropenem 500 MG in Sodium Chloride 0.9% 50 ML IV SCH (11:00)
[2023-05-09] MEDS: Benzocaine/Cetylpyridinium/Menthol Lozenge MUCMEM PRN (13:04)
[2023-05-09 14:54] VITALS: PULSE 98
[2023-05-09 17:05] VITALS: BP 115/52
[2023-05-10] MEDS ORDERED: Meropenem 500 MG in Sodium Chloride 0.9% 50 ML IV SCH (01:00)
[2023-05-10] MEDS ORDERED: predniSONE 20 MG Tab PO SCH (08:00)
[2023-05-11] MEDS ORDERED: Warfarin 5 MG Tab PO SCH (18:00)
== END 2023-05-09 16:45 | DRG 280 ==
LOC: JP.ED 15:18 → JP.MS 18:44 → UNDOADMIN 18:44 → JP.MS 05-08 18:44 → UNDOADMIN 05-08 18:44 → JP.MS 05-09 03:45 → JP.ICU 05-09 10:10
PROVIDERS: ADMIT Internal Medicine; ATTEND Internal Medicine
DX: I34.0 Nonrheumatic mitral (valve) insufficiency (principal); I21.4 Non-ST elevation (NSTEMI) myocardial infarction; I50.23 Acute on chronic systolic (congestive) heart failure; E86.1 Hypovolemia; R09.02 Hypoxemia; E87.8 Other disorders of electrolyte and fluid balance, not elsewhere classified; J96.01 Acute respiratory failure with hypoxia; N17.9 Acute kidney failure, unspecified; I50.33 Acute on chronic diastolic (congestive) heart failure; J44.1 Chronic obstructive pulmonary disease with (acute) exacerbation; D64.9 Anemia, unspecified; I11.0 Hypertensive heart disease with heart failure; E66.9 Obesity, unspecified; I25.10 Atherosclerotic heart disease of native coronary artery without angina pectoris; K21.9 Gastro-esophageal reflux disease without esophagitis; E78.00 Pure hypercholesterolemia, unspecified; J44.9 Chronic obstructive pulmonary disease, unspecified; Z79.01 Long term (current) use of anticoagulants; Z86.718 Personal history of other venous thrombosis and embolism; Z88.8 Allergy status to other drugs, medicaments and biological substances; Z88.2 Allergy status to sulfonamides; Z79.899 Other long term (current) drug therapy; Z86.010 Personal history of colon polyps; Z86.73 Personal history of transient ischemic attack (TIA), and cerebral infarction without residual deficits; Z11.52 Encounter for screening for COVID-19; Z68.24 Body mass index [BMI] 24.0-24.9, adult; Z90.49 Acquired absence of other specified parts of digestive tract; Z90.710 Acquired absence of both cervix and uterus; Z90.11 Acquired absence of right breast and nipple; Z98.890 Other specified postprocedural states; Z98.1 Arthrodesis status
CPT/HCPCS: 0241U; 36415; 36600; 51702; 71045; 71250; 80048; 82803; 83605; 83735; 83880; 84145; 84484; 85025; 85027; 85379; 85610; 85730; 86140; 87040; 90694; 93005; 94640; 99285; A9270-GY; G0008; J0696; J1940; J1956; J2185; J2270; J2920; J3490; J7030; J7512; J7620